=== PATIENT | female | born 1930 | race Caucasian/White ===

== ENCOUNTER 2018-04-18 18:00 | Inpatient (IN) | payer BC, MEDICARE | END 2018-04-23 11:20 | disposition home health service (06) ==

== ENCOUNTER 2018-05-05 08:07 | Emergency (ER) | payer MEDICARE, BC ==
[~2018-05-05] VITALS: Ht 152.4 cm; Wt 59.0 kg
[~2018-05-05 08:07] MED LIST: ALPR0.5T7 PO; ATOR40TA70 PO; HYDR25TA4 PO; INSU100I23 SC; INSU100I34 SC; ISOS30TA3 PO; METO-395 PO; RIVA15TA PO; TERA1CAP3 PO; TRAM50TA2 PO
[2018-05-05 08:22] LABS: BASOPHILS % (AUTO) 0 % (0-10); EOSINOPHILS # (AUTO) 0.1 10^3/uL (0.0-0.3); EOSINOPHILS % (AUTO) 2 % (0-10); HEMATOCRIT 43 % (35-52); HEMOGLOBIN 14.2 G/DL (11.5-16.0); LYMPHOCYTES # (AUTO) 1.2 X 10^3 (1.0-4.0); LYMPHOCYTES % (AUTO) 16 % (12-44); MEAN CORPUSCULAR HEMOGLOBIN 30 PG (25-34); MEAN CORPUSCULAR HGB CONC 33 G/DL (32-36); MEAN CORPUSCULAR VOLUME 88 FL (80-99); MEAN PLATELET VOLUME 8.7 FL (7.4-10.4); MONOCYTES # (AUTO) 0.6 X 10^3 (0.0-1.0); MONOCYTES % (AUTO) 9 % (0-12); NEUTROPHILS # (AUTO) 5.2 X 10^3 (1.8-7.8); NEUTROPHILS % (AUTO) 73 % (42-75); PLATELET COUNT 375 10^3/uL (130-400); RED CELL DISTRIBUTION WIDTH 13.7 % (10.0-14.5); WHITE BLOOD COUNT 7.1 10^3/uL (4.3-11.0)
--- NOTE | 2018-05-05 08:29 | NUR ---
SEE MED LIST
[2018-05-05 08:42] LABS: INR 1.4 (0.8-1.4); PROTHROMBIN TIME PATIENT 17.4 SEC (12.2-14.7)
--- NOTE | 2018-05-05 08:43 | Diagnostic Imaging Report ---
INDICATION: Heart flutter x1 day. TECHNIQUE: Single view chest 8:35 AM. CORRELATION STUDY: None FINDINGS: Heart size borderline. Vasculature within normal limits. Lung mo hyperinflated. No infiltrate. Calcified granuloma at the right upper lobe. Advanced degenerative changes of the shoulders. IMPRESSION: 1. Negative for acute abnormality of the chest. Dictated by: Dictated on workstation # [id number]
[2018-05-05 08:50] LABS: ALANINE AMINOTRANSFERASE 17 U/L (0-55); ALBUMIN 4.1 GM/DL (3.2-4.5); ALKALINE PHOSPHATASE 69 U/L (40-136); BILIRUBIN,TOTAL 0.8 MG/DL (0.1-1.0); BUN/CREATININE RATIO 20; CALCIUM 9.8 MG/DL (8.5-10.1); CARBON DIOXIDE 26 MMOL/L (21-32); CHLORIDE 102 MMOL/L (98-107); CREATININE SERUM 0.85 MG/DL (0.60-1.30); GFR ESTIMATED > 60; GLUCOSE 127 MG/DL (70-105); LIPASE 9 U/L (8-78); MAGNESIUM 2.8 MG/DL (1.8-2.4); POTASSIUM 3.6 MMOL/L (3.6-5.0); SODIUM 140 MMOL/L (135-145); TOTAL PROTEIN 7.2 GM/DL (6.4-8.2)
[2018-05-05 08:57] LABS: MYOGLOBIN SERUM 59.5 NG/ML (10.0-92.0)
--- NOTE | 2018-05-05 09:02 | ED Chest Pain ---
General Chief Complaint: Chest Pain Stated Complaint: CARDIAC ISSUES Nursing Triage Note: PT PRESENTS TO ED VIA [facility] FOR CP STARTING YESTERDAY BUT WORSE THIS AM. EMS REPORTS THEY GAVE PT 324 MG ASA AND 2 NITRO IN ROUTE. PT REPORTS PAIN IS VERY MINIMAL AFTER SECOND NITRO. PT DENIES SOA OR WEAKNESS/FAINTNESS Nursing Sepsis Screen: No Definite Risk Source: patient Exam Limitations: no limitations History of Present Illness Date Seen by Provider: May 05, 2018 Time Seen by Provider: 08:13 Initial Comments Here with report of left and/or central anterior chest pain that she is having a hard time describing but does state that he goes to her left shoulder. Onset yesterday intermittently and then worse today. Noted that it went to the shoulder today. She did summon EMS because of this and they gave 324 mg of aspirin as well as 2 nitroglycerin tablets in route. This did resolve her pain. Does have history of stroke recently and is on Xarelto for blood thinner agents. Stroke occurred on April 14 of this year and she was discharged from our rehabilitation unit on April 23. Has been doing okay. The stroke affected the left side and that is better. Denies nausea, vomiting, diarrhea, breathing problems, sweating or worse weakness. Timing/Duration: 24 hours, getting worse, intermittent, resolved prior to arrival Severity/Quality: mild, moderate, dull Location: central Radiation: shoulders (left) Activities at Onset: none Prior CP/Workup: cardiac cath, echocardiography Modifying Factors: improves with nitroglycerin, improves with rest ASA po PROGRESSIVE ASSEMBLER AND FITTER: No NTG SL PROGRESSIVE ASSEMBLER AND FITTER: No Associated Symptoms: No abdominal pain, No back pain, No diaphoresis, No nausea /vomiting, No shortness of breath, No weakness Allergies and Home Medications Allergies Coded Allergies: Penicillins (Unverified Allergy, Unknown, 04/19/18) Sulfa (Sulfonamide Antibiotics) (Unverified Allergy, Unknown, 04/19/18) amlodipine (Unverified Allergy, Unknown, 04/19/18) azithromycin (Unverified Allergy, Unknown, 04/19/18) diclofenac (Unverified Allergy, Unknown, 04/19/18) diltiazem (Unverified Allergy, Unknown, 04/19/18) esomeprazole (Unverified Allergy, Unknown, 04/19/18) famotidine (Unverified Allergy, Unknown, 04/19/18) fluocinonide (Unverified Allergy, Unknown, 04/19/18) glyburide (Unverified Allergy, Unknown, 04/19/18) losartan (Unverified Allergy, Unknown, 04/19/18) meloxicam (Unverified Allergy, Unknown, 04/19/18) metformin (Unverified Allergy, Unknown, 04/19/18) misoprostol (Unverified Allergy, Unknown, 04/19/18) naproxen (Unverified Allergy, Unknown, 04/19/18) pioglitazone (Unverified Allergy, Unknown, 04/19/18) pirbuterol (Unverified Allergy, Unknown, 04/19/18) rosiglitazone (Unverified Allergy, Unknown, 04/19/18) Uncoded Allergies: multivitamin (Allergy, Unknown, 04/19/18) Home Medications Alprazolam 0.5 Mg Tablet, 0.5 MG PO HS PRN for SLEEP Prescribed by: OSORIO DAWSON on 04/23/18901 Atorvastatin Calcium 40 Mg Tablet, 40 MG PO HS, (Reported) Hydrochlorothiazide 25 Mg Tablet, 25 MG PO DAILY, (Reported) Insulin Glargine,Hum.rec.anlog 100 Unit/1 Ml Insuln.pen, 20 UNITS SC HS, ( Reported) Insulin Lispro 100 Unit/1 Ml Insuln.pen, 5 UNITS SC TIDAC, (Reported) Isosorbide Mononitrate 30 Mg Tab.er.24h, 30 MG PO DAILY, (Reported) Rivaroxaban 15 Mg Tablet, 15 MG PO DAILY@1700 Prescribed by: OSORIO DAWSON on 04/23/18901 Tramadol HCl 50 Mg Tablet, 50 MG PO Q8H PRN for PAIN-MODERATE Prescribed by: OSORIO DAWSON on 04/23/18 09 Patient Home Medication List Home Medication List Reviewed: Yes Review of Systems Review of Systems Constitutional: see HPI; No chills, No fever EENTM: No Symptoms Reported Respiratory: Denies Shortness of Air, Denies Wheezing Cardiovascular: Chest Pain; Denies Edema; Palpitations Gastrointestinal: Denies Nausea, Denies Vomiting Genitourinary: No Symptoms Reported Musculoskeletal: see HPI, joint pain, muscle pain Skin: no symptoms reported Psychiatric/Neurological: No Symptoms Reported All Other Systems Reviewed Negative Unless Noted: Yes Past Xghfcuu-Qldsoa-Axmyga Hx Past Med/Social Hx: Reviewed Nursing Past Med/Soc Hx Patient Social History Alcohol Use: Denies Use Recreational Drug Use: No Smoking Status: Never a Smoker Recent Foreign Travel: No Contact w/Someone Who Travel: No Recent Infectious Disease Expo: No Recent Hopitalizations: Yes Physical Abuse: No Sexual Abuse: No Mistreated: No Fear: No Immunizations Up To Date Date of Pneumonia Vaccine: Apr 18, 2017 Date of Influenza Vaccine: Dec 24, 2017 Seasonal Allergies Seasonal Allergies: No Past Medical History Surgeries: Yes (D & C) Gallbladder, Tubal Ligation Respiratory: No Currently Using CPAP: No Currently Using BIPAP: No Cardiac: Yes (bradycardia, paroxysmal a-fib) Atrial Fibrillation, High Cholesterol, Hypertension Neurological: Yes Stroke Female Reproductive Disorders: Denies Sexually Transmitted Disease: No HIV/AIDS: No Genitourinary: No Gastrointestinal: No Musculoskeletal: Yes Arthritis Endocrine: Yes (dyslipidemia) Diabetes, Insulin dep HEENT: Yes Hearing Impairment: Hard of Hearing Cancer: No Psychosocial: No Integumentary: Yes (pemphigoid) Blood Disorders: No Adverse Reaction/Blood Tranf: No Family Medical History Reviewed Nursing Family Hx Cardiovascular disease G8 BROTHER Diabetes mellitus SON Physical Exam Vital Signs Vital Signs - First Documented 05/05/18 08:13 Temp 96.3 Pulse 68 Resp 18 B/P (MAP) 151/93 (112) Pulse Ox 99 O2 Delivery Room Air Capillary Refill : Less Than 3 Seconds Height, Weight, BMI Height: 5'0.00" Weight: 130lbs. 4.8oz. 58.696015ca; 24.3 BMI Method:Stated General Appearance: No Apparent Distress, WD/WN HEENT: PERRL/EOMI, Pharynx Normal Neck: Non Tender, Supple Respiratory: Lungs Clear, Normal Breath Sounds Cardiovascular: Regular Rate, Rhythm, No Murmur Gastrointestinal: Non Tender, Soft Extremity: Normal Range of Motion, Non Tender Neurologic/Psychiatric: Alert, Oriented x3 Skin: Normal Color, Warm/Dry Progress/Results/Core Measures Results/Orders Lab Results Laboratory Tests Test 05/05/18 08:15 05/05/18 11:12 Range/Units White Blood Count 7.1 4.3-11.0 10^3/uL Red Blood Count 4.82 4.35-5.85 10^6/uL Hemoglobin 14.2 11.5-16.0 G/DL Hematocrit 43 35-52 % Mean Corpuscular Volume 88 80-99 FL Mean Corpuscular Hemoglobin 30 25-34 PG Mean Corpuscular Hemoglobin Concent 33 32-36 G/DL Red Cell Distribution Width 13.7 10.0-14.5 % Platelet Count 375 130-400 10^3/uL Mean Platelet Volume 8.7 7.4-10.4 FL Neutrophils (%) (Auto) 73 42-75 % Lymphocytes (%) (Auto) 16 12-44 % Monocytes (%) (Auto) 9 0-12 % Eosinophils (%) (Auto) 2 0-10 % Basophils (%) (Auto) 0 0-10 % Neutrophils # (Auto) 5.2 1.8-7.8 X 10^3 Lymphocytes # (Auto) 1.2 1.0-4.0 X 10^3 Monocytes # (Auto) 0.6 0.0-1.0 X 10^3 Eosinophils # (Auto) 0.1 0.0-0.3 10^3/uL Basophils # (Auto) 0.0 0.0-0.1 10^3/uL Prothrombin Time 17.4 H 12.2-14.7 SEC INR Comment 1.4 0.8-1.4 Activated Partial Thromboplast Time 45 H 24-35 SEC D-Dimer 0.43 0.00-0.49 UG/ML Sodium Level 140 135-145 MMOL/L Potassium Level 3.6 3.6-5.0 MMOL/L Chloride Level 102 98-107 MMOL/L Carbon Dioxide Level 26 21-32 MMOL/L Anion Gap 12 5-14 MMOL/L Blood Urea Nitrogen 17 7-18 MG/DL Creatinine 0.85 0.60-1.30 MG/DL Estimat Glomerular Filtration Rate > 60 BUN/Creatinine Ratio 20 Glucose Level 127 H 70-105 MG/DL Calcium Level 9.8 8.5-10.1 MG/DL Corrected Calcium 9.7 8.5-10.1 MG/DL Magnesium Level 2.8 H 1.8-2.4 MG/DL Total Bilirubin 0.8 0.1-1.0 MG/DL Aspartate Amino Transf (AST/SGOT) 22 5-34 U/L Alanine Aminotransferase (ALT/SGPT) 17 0-55 U/L Alkaline Phosphatase 69 40-136 U/L Myoglobin 59.5 58.8 10.0-92.0 NG/ML Troponin I < 0.028 < 0.028 <0.028 NG/ML B-Type Natriuretic Peptide 325.3 H <100.0 PG/ML Total Protein 7.2 6.4-8.2 GM/DL Albumin 4.1 3.2-4.5 GM/DL Lipase 9 8-78 U/L My Orders Orders - KAYODE FRANKEL MD Cbc With Automated Diff (05/05/18 08:17) Magnesium (05/05/18 08:17) Chest 1 View, Ap/Pa Only (05/05/18 08:17) Ekg Tracing (05/05/18 08:17) Cardiac Profile 1 (05/05/18 08:17) Comprehensive Metabolic Panel (05/05/18 08:17) Myoglobin Serum (05/05/18 08:17) Protime With Inr (05/05/18 08:17) Partial Thromboplastin Time (05/05/18 08:17) O2 (05/05/18 08:17) Monitor-Rhythm Ecg Trace Only (05/05/18 08:17) Lipid Panel (05/06/18 06:00) Saline Lock/Iv-Start (05/05/18 08:17) Lipase (05/05/18 08:17) BNP (05/05/18 08:17) Fibrin Degradation Products (05/05/18 08:17) Troponin I (05/05/18 11:06) Myoglobin Serum (05/05/18 11:06) Ekg Tracing (05/05/18 11:06) Vital Signs/I&O 05/05/18 05/05/18 08:13 08:13 Temp 96.3 Pulse 68 Resp 18 B/P (MAP) 151/93 (112) Pulse Ox 99 O2 Delivery Room Air Blood Pressure Mean: 112 Progress Progress Note : Progress Note Seen and evaluated. IV by EMS. Labs, EKG and chest x-ray ordered. Aspirin and nitroglycerin tablets had been given by EMS and patient is currently pain- free. We will evaluate for cardiac etiology. Patient comfortable and in no complaint currently. Monitor patient. 1100: Patient remains pain free without any significant findings throughout the stay. She does have history of atrial flutter and she is on Xarelto so is protected. She does not show any signs of sustained atrial fibrillation or flutter while in the emergency department. We will recheck labs and EKG here and she elected go home if everything remains okay. 1145: Repeat EKG is negative for changes. Repeat labs do not show any elevation of troponin or other concerns. Remains without atrial fibrillation/ flutter. I do suspect she may have had an episode last night by her description but it does not seem to be sustained. At this point, safe to go home with follow-up and return precautions. All of this was discussed with patient and family who agree with plan and verbalize understanding instructions. I did recommend follow-up with cardiology this week. They verbalized intent to comply. Initial ECG Impression Date: May 05, 2018 Initial ECG Impression Time: 08:13 Initial ECG Rate: 61 Initial ECG Rhythm: Normal Sinus (chest x-ray and) Comment Sinus rhythm with normal axis. No evidence of ST elevation TN. PACs with some artifact. Overall similar in morphology to previous of 04/23/18. Interpreted by me. EKG : EKG Time: 11:15 Rate: 64 Comment Sinus rhythm with normal axis. No evidence of ST elevation TN. Morphology similar to EKG done earlier this morning and to previous EKG. Interpreted by me. Diagnostic Imaging Diagonstic Imaging: Xray Plain Films/CT/US/NM/MRI: chest Comments [facility] [place], [place] NAME: CHARLES DAVIES [facility] REC#: [id number] PT STATUS: REG ER : 1930 PHYSICIAN: KAYODE FRANKEL MD ADMIT DATE: 05/05/18/ER Draft Date of Exam:05/05/18 CHEST 1 VIEW, AP/PA ONLY INDICATION: Heart flutter x1 day. TECHNIQUE: Single view chest 8:35 AM. CORRELATION STUDY: None FINDINGS: Heart size borderline. Vasculature within normal limits. Lung mo hyperinflated. No infiltrate. Calcified granuloma at the right upper lobe. Advanced degenerative changes of the shoulders. IMPRESSION: 1. Negative for acute abnormality of the chest. Dictated on workstation # [id number] Dict: 05/05/18839 Trans: 05/05/[address] [facility] [id number] Interpreted by: TIFFANIE MUNSON DO Electronically signed by: Departure Impression Primary Impression: Chest pain Qualified Codes: R07.9 - Chest pain, unspecified Additional Impression: Atrial fibrillation Qualified Codes: I48.0 - Paroxysmal atrial fibrillation Disposition: 01 HOME, SELF-CARE Condition: Improved Departure-Patient Inst. Decision time for Depature: 11:50 Referrals: Kelton CROSS MD [facility],ANA ROSA SALCEDO (PCP/Family) Primary Care Physician Patient Instructions: Chest Pain (DC), Atrial Flutter (DC) Add. Discharge Instructions: All discharge instructions reviewed with patient and/or family. Voiced understanding. Continue home medications as previously prescribed. Follow-up with your Dr. this week for recheck and further evaluation. You should call and make appointment with Dr. Cross within one week for further evaluation. Return for worsening, fever, vomiting, weakness, breathing problems or other concerns as needed. Copy Copies To 1: Kelton CROSS MD, TIMOTHY D MD May 05, 2018 09:02
[2018-05-05 11:40] LABS: MYOGLOBIN SERUM 58.8 NG/ML (10.0-92.0)
[2018-05-05 11:58] VITALS: BP 162/70
== END 2018-05-05 11:58 | disposition home or self-care (01) ==
LOC: EDUNIT# 08:07 → ER 08:08
DX: R07.89 Other chest pain (principal); I48.91 Unspecified atrial fibrillation; E78.00 Pure hypercholesterolemia, unspecified; I10 Essential (primary) hypertension; E11.9 Type 2 diabetes mellitus without complications; Z82.49 Family history of ischemic heart disease and other diseases of the circulatory system; Z86.73 Personal history of transient ischemic attack (TIA), and cerebral infarction without residual deficits; Z79.01 Long term (current) use of anticoagulants; Z88.0 Allergy status to penicillin; Z88.2 Allergy status to sulfonamides; Z88.8 Allergy status to other drugs, medicaments and biological substances; Z88.1 Allergy status to other antibiotic agents; Z79.4 Long term (current) use of insulin; Z98.51 Tubal ligation status
CPT/HCPCS: 36415; 71045; 80053; 83690; 83735; 83874; 83880; 84484; 85025; 85379; 85610; 85730; 93005; 93041

== ENCOUNTER 2018-07-16 07:08 | Emergency (ER) | payer MEDICARE, BC ==
[~2018-07-16] VITALS: Ht 152.4 cm; Wt 57.2 kg
[~2018-07-16 07:08] MED LIST changes: -RIVA15TA PO; +RIVA15TA2 PO
[2018-07-16] MEDS ORDERED: NS IV 1000 ML 1,000 ML ONE (07:28)
--- NOTE | 2018-07-16 07:37 | ED Cardiac General ---
History of Present Illness General Stated Complaint: CHEST PAIN Source: patient Exam Limitations: no limitations History of Present Illness Date Seen by Provider: Jul 16, 2018 Time Seen by Provider: 07:32 Initial Comments Patient is a 88-year-old female with history of paroxysmal atrial fibrillation who presents with acute onset palpitations associated with chest pain starting approximately 2 and half hours prior to ED arrival. Patient states symptoms awoke her from sleep. Palpitations are described as fast, pounding in a regular similar to patient's previous A. fib episodes. Patient also reports chest pain all over which was nonradiating. Reports sweats, but denies shortness of breath nausea vomiting. Additional associated symptoms include generalized weakness and lightheadedness. On EMS arrival, the patient was noted be in A. fib with RVR with heart rate in the 130s with chest pain. 15 mg of Cardizem was given with improved rate control. Patient noted be hypotensive ED arrival, systolic blood pressure in the 80s. Chest pain is improved. Initial EKG shows A. fib, heart rate of [address]-T wave changes. Patient reports recently discontinue metoprolol. Timing/Duration: 1-3 hours Severity: moderate Location: central Activities at Onset: activity Prior CP/Workup: other (unknown) Associated Systoms: Shortness of Air Allergies and Home Medications Allergies Coded Allergies: Penicillins (Unverified Allergy, Unknown, rash, 07/16/18) Sulfa (Sulfonamide Antibiotics) (Unverified Allergy, Unknown, rash, ) amlodipine (Unverified Allergy, Unknown, feet and leg swelling, 07/16/18) azithromycin (Unverified Allergy, Unknown, diarrhea, 07/16/18) diclofenac (Unverified Allergy, Unknown, colon cramp, 07/16/18) diltiazem (Unverified Allergy, Unknown, headache, jaw ache, swollen gums, 07/16/18) esomeprazole (Unverified Allergy, Unknown, gas, 07/16/18) famotidine (Unverified Allergy, Unknown, 04/19/18) fluocinonide (Unverified Allergy, Unknown, sore mouth, 07/16/18) glyburide (Unverified Allergy, Unknown, cough, hoarseness, hair loss, 07/16) lisinopril (Verified Allergy, Unknown, feet cramp, 07/16/18) losartan (Unverified Allergy, Unknown, cough, 07/16/18) meloxicam (Unverified Allergy, Unknown, bloody stool, 07/16/18) metaxalone (Verified Allergy, Unknown, nervousness, 07/16/18) metformin (Unverified Allergy, Unknown, diarrhea, 07/16/18) misoprostol (Unverified Allergy, Unknown, colon cramp, 07/16/18) naproxen (Unverified Allergy, Unknown, 04/19/18) pioglitazone (Unverified Allergy, Unknown, stiffness, 07/16/18) pirbuterol (Unverified Allergy, Unknown, face itching, 07/16/18) rosiglitazone (Unverified Allergy, Unknown, stiffness, 07/16/18) Uncoded Allergies: multivitamin (Allergy, Unknown, rash, 07/16/18) Home Medications Alprazolam 0.5 Mg Tablet, 0.5 MG PO HS PRN for SLEEP Prescribed by: OSORIO DAWSON on 04/23/18901 Atorvastatin Calcium 40 Mg Tablet, 40 MG PO HS, (Reported) Hydrochlorothiazide 25 Mg Tablet, 25 MG PO DAILY, (Reported) Insulin Glargine,Hum.rec.anlog 100 Unit/1 Ml Insuln.pen, 20 UNITS SC HS, ( Reported) Insulin Lispro 100 Unit/1 Ml Insuln.pen, 5 UNITS SC TIDAC, (Reported) Isosorbide Mononitrate 30 Mg Tab.er.24h, 30 MG PO DAILY, (Reported) Rivaroxaban 15 Mg Tablet, 15 MG PO DAILY@1700 Prescribed by: OSORIO DAWSON on 04/23/18901 Tramadol HCl 50 Mg Tablet, 50 MG PO Q8H PRN for PAIN-MODERATE Prescribed by: OSORIO DAWSON on 04/23/18901 Patient Home Medication List Home Medication List Reviewed: Yes Review of Systems Review of Systems Constitutional: no symptoms reported, see HPI EENTM: No Symptoms Reported, See HPI Respiratory: No Symptoms Reported, See HPI Cardiovascular: No Symptoms Reported, See HPI Gastrointestinal: No Symptoms Reported, See HPI Genitourinary: No Symptoms Reported, See HPI Musculoskeletal: no symptoms reported, see HPI Skin: no symptoms reported Psychiatric/Neurological: Anxiety Past Drblmte-Imsxvr-Rhxlfo Hx Past Med/Social Hx: Reviewed Nursing Past Med/Soc Hx Patient Social History Recent Hopitalizations: Yes Immunizations Up To Date Date of Pneumonia Vaccine: Apr 18, 2017 Date of Influenza Vaccine: Dec 24, 2017 Seasonal Allergies Seasonal Allergies: No Past Medical History Surgeries: Yes (D & C) Gallbladder, Tubal Ligation Respiratory: No Currently Using CPAP: No Currently Using BIPAP: No Cardiac: Yes (bradycardia, paroxysmal a-fib) Atrial Fibrillation, High Cholesterol, Hypertension Neurological: Yes Stroke Female Reproductive Disorders: Denies Sexually Transmitted Disease: No HIV/AIDS: No Genitourinary: No Gastrointestinal: No Musculoskeletal: Yes Arthritis Endocrine: Yes (dyslipidemia) Diabetes, Insulin dep HEENT: Yes Hearing Impairment: Hard of Hearing Cancer: No Psychosocial: No Integumentary: Yes (pemphigoid) Blood Disorders: No Adverse Reaction/Blood Tranf: No Family Medical History Cardiovascular disease G8 BROTHER Diabetes mellitus SON Physical Exam Vital Signs Vital Signs - First Documented 07/16/18 07:10 Temp 96.4 Pulse 98 Resp 21 B/P (MAP) 105/45 (65) Pulse Ox 100 Capillary Refill : Height, Weight, BMI Height: 5'0.00" Weight: 130lbs. 4.8oz. 58.219880zs; 24.3 BMI Method:Stated General Appearance: No Apparent Distress, WD/WN HEENT: PERRL/EOMI, Normal ENT Inspection Neck: Normal Inspection Respiratory: Chest Non Tender, Lungs Clear Cardiovascular: Irregularly Irregular Gastrointestinal: Soft Neurologic/Psychiatric: Alert, Oriented x3, No Motor/Sensory Deficits, Normal Mood/Affect, clay puddler II-XII Norm as Tested Focused Exam Sepsis Stage: Ruled Out Progress/Results/Core Measures Results/Orders Lab Results Laboratory Tests Test 07/16/18 07:26 07/16/18 10:20 Range/Units White Blood Count 8.9 4.3-11.0 10^3/uL Red Blood Count 4.60 4.35-5.85 10^6/uL Hemoglobin 13.3 11.5-16.0 G/DL Hematocrit 42 35-52 % Mean Corpuscular Volume 90 80-99 FL Mean Corpuscular Hemoglobin 29 25-34 PG Mean Corpuscular Hemoglobin Concent 32 32-36 G/DL Red Cell Distribution Width 13.5 10.0-14.5 % Platelet Count 299 130-400 10^3/uL Mean Platelet Volume 9.0 7.4-10.4 FL Neutrophils (%) (Auto) 72 42-75 % Lymphocytes (%) (Auto) 15 12-44 % Monocytes (%) (Auto) 9 0-12 % Eosinophils (%) (Auto) 3 0-10 % Basophils (%) (Auto) 1 0-10 % Neutrophils # (Auto) 6.4 1.8-7.8 X 10^3 Lymphocytes # (Auto) 1.4 1.0-4.0 X 10^3 Monocytes # (Auto) 0.8 0.0-1.0 X 10^3 Eosinophils # (Auto) 0.2 0.0-0.3 10^3/uL Basophils # (Auto) 0.1 0.0-0.1 10^3/uL Prothrombin Time 14.7 12.2-14.7 SEC INR Comment 1.1 0.8-1.4 Sodium Level 139 135-145 MMOL/L Potassium Level 3.7 3.6-5.0 MMOL/L Chloride Level 97 L 98-107 MMOL/L Carbon Dioxide Level 14 L 21-32 MMOL/L Anion Gap 28 H 5-14 MMOL/L Blood Urea Nitrogen 17 7-18 MG/DL Creatinine 0.79 0.60-1.30 MG/DL Estimat Glomerular Filtration Rate > 60 BUN/Creatinine Ratio 22 Glucose Level 143 H 70-105 MG/DL Calcium Level 9.6 8.5-10.1 MG/DL Corrected Calcium 9.6 8.5-10.1 MG/DL Total Bilirubin 0.7 0.1-1.0 MG/DL Aspartate Amino Transf (AST/SGOT) 29 5-34 U/L Alanine Aminotransferase (ALT/SGPT) 36 0-55 U/L Alkaline Phosphatase 139 H 40-136 U/L Troponin T 16 H <=10 NG/L Total Protein 7.0 6.4-8.2 GM/DL Albumin 4.0 3.2-4.5 GM/DL My Orders Orders - BARI HOGAN DO Cbc With Automated Diff (07/16/18 07:23) Comprehensive Metabolic Panel (07/16/18 07:23) Troponin T (07/16/18 07:23) Chest 1 View Ap/Pa Only (07/16/18 07:23) Ekg Tracing (07/16/18 07:23) Protime With Inr (07/16/18 07:24) Ns Iv 1000 Ml (Sodium Chloride 0.9%) (07/16/18 07:45) Ns Iv 1000 Ml (Sodium Chloride 0.9%) (07/16/18 07:28) Ekg Tracing (07/16/18 08:44) Troponin T (07/16/18 09:02) Vital Signs/I&O 07/16/18 07:10 Temp 96.4 Pulse 98 Resp 21 B/P (MAP) 105/45 (65) Pulse Ox 100 Departure Communication (Admissions) A. fib with RVR, Cardizem given prior to ER arrival. Chest pain and heart rate improved, patient remains hypotensive with systolic blood pressure 70s. Fluid bolus given. Patient spontaneously converted to normal sinus rhythm/sinus bradycardia. Blood pressure improved fluid bolus. Patient heart rate in 40s/ 50s. Case discussed in detail with Dr. Carlos. Recommendations are to hold beta brigida to send patient home and to have patient follow-up in the office for evaluation of potential pacemaker placement. Case discussed with patient's daughter's agreement with plan. Patient ambulates with steady gait prior to departure. Impression Primary Impression: Atrial fibrillation Additional Impressions: Bradycardia Chest pain Disposition: 01 HOME, SELF-CARE Condition: Improved Admissions Decision to Admit/Date: Jul 16, 2018 Time/Decision to Admit Time: 07:38 Departure-Patient Inst. Referrals: SELF,ANA ROSA SALCEDO (PCP) Primary Care Physician MARCUS CANO APRN (Family) Primary Care Physician Patient Instructions: Atrial Fibrillation (DC), Chest Pain (DC) Add. Discharge Instructions: You were evaluated in the emergency department for chest pain and fast heart rate. Initial EKG showed atrial fibrillation which converted to a slow normal heart rhythm. 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 Continue all other medications. If you develop new or worsening symptoms, return to the emergency department. BARI HOGAN DO Jul 16, 2018 07:37
[2018-07-16] MEDS ORDERED: NS IV 1000 ML 1,000 ML IV SCH (07:45)
--- NOTE | 2018-07-16 07:54 | Diagnostic Imaging Report ---
CHEST 1 VIEW AP/PA ONLY Indication: Chest pain Comparison: 05/25/2018 Findings: No focal airspace disease in the visualized lungs. Please note that the posterior lower lobes are poorly evaluated by portable radiography. No pleural effusion or pneumothorax. Normal cardiomediastinal silhouette. Impression: No acute cardiopulmonary process by portable radiography. Dictated by: Dictated on workstation # [id number]
[2018-07-16 07:56] LABS: BASOPHILS % (AUTO) 1 % (0-10); EOSINOPHILS % (AUTO) 3 % (0-10); HEMATOCRIT 42 % (35-52); HEMOGLOBIN 13.3 G/DL (11.5-16.0); LYMPHOCYTES # (AUTO) 1.4 X 10^3 (1.0-4.0); LYMPHOCYTES % (AUTO) 15 % (12-44); MEAN CORPUSCULAR HEMOGLOBIN 29 PG (25-34); MEAN CORPUSCULAR HGB CONC 32 G/DL (32-36); MEAN CORPUSCULAR VOLUME 90 FL (80-99); MONOCYTES # (AUTO) 0.8 X 10^3 (0.0-1.0); MONOCYTES % (AUTO) 9 % (0-12); NEUTROPHILS # (AUTO) 6.4 X 10^3 (1.8-7.8); NEUTROPHILS % (AUTO) 72 % (42-75); PLATELET COUNT 299 10^3/uL (130-400); RED CELL DISTRIBUTION WIDTH 13.5 % (10.0-14.5); WHITE BLOOD COUNT 8.9 10^3/uL (4.3-11.0)
[2018-07-16 07:57] LABS: BASOPHILS # (AUTO) 0.1 10^3/uL (0.0-0.1); EOSINOPHILS # (AUTO) 0.2 10^3/uL (0.0-0.3); INR 1.1 (0.8-1.4); PROTHROMBIN TIME PATIENT 14.7 SEC (12.2-14.7)
[2018-07-16 07:58] LABS: BUN/CREATININE RATIO 22; CALCIUM 9.6 MG/DL (8.5-10.1); CARBON DIOXIDE 14 MMOL/L (21-32); CHLORIDE 97 MMOL/L (98-107); CREATININE SERUM 0.79 MG/DL (0.60-1.30); GFR ESTIMATED > 60; GLUCOSE 143 MG/DL (70-105); POTASSIUM 3.7 MMOL/L (3.6-5.0); SODIUM 139 MMOL/L (135-145)
[2018-07-16 07:59] LABS: ALANINE AMINOTRANSFERASE 36 U/L (0-55); ALKALINE PHOSPHATASE 139 U/L (40-136); BILIRUBIN,TOTAL 0.7 MG/DL (0.1-1.0)
[2018-07-16] MEDS ORDERED: AMLO5TAB9 (08:09)
[2018-07-16] MEDS ORDERED: NAPR220T66 (08:09)
--- NOTE | 2018-07-16 12:00 | NUR ---
Notified by [facility] transfer center that it will be a wait for a bed number. Unable to give specified time frame. Notified Dr Hollins
[2018-07-16 13:26] VITALS: BP 120/46
--- NOTE | 2018-07-16 13:50 | NUR ---
Patient transferred at this time to [facility] via [facility]
== END 2018-07-16 13:52 | disposition short-term general hospital (02) ==
LOC: EDUNIT# 07:08 → ER FS 07:09
DX: I48.91 Unspecified atrial fibrillation (principal); R00.1 Bradycardia, unspecified; R07.9 Chest pain, unspecified; E78.00 Pure hypercholesterolemia, unspecified; I10 Essential (primary) hypertension; E11.9 Type 2 diabetes mellitus without complications; E78.2 Mixed hyperlipidemia; Z82.49 Family history of ischemic heart disease and other diseases of the circulatory system; Z86.73 Personal history of transient ischemic attack (TIA), and cerebral infarction without residual deficits; Z88.0 Allergy status to penicillin; Z88.2 Allergy status to sulfonamides; Z88.1 Allergy status to other antibiotic agents; Z88.8 Allergy status to other drugs, medicaments and biological substances; Z79.4 Long term (current) use of insulin; Z79.01 Long term (current) use of anticoagulants; Z98.51 Tubal ligation status; Z98.890 Other specified postprocedural states
CPT/HCPCS: 36415; 71045; 80053; 84484; 85025; 85610; 93005

== ENCOUNTER → 2018-08-15 | Outpatient (CLI) | payer MEDICARE, BC ==
[~2018-08-15] MED LIST changes: +AMLO5TAB9; +NAPR220T66
== END ==
LOC: CARD 09:07
PROVIDERS: ATTEND Internal Medicine Interventional Cardiology
DX: I63.9 Cerebral infarction, unspecified (principal); I48.0 Paroxysmal atrial fibrillation; E11.9 Type 2 diabetes mellitus without complications; I10 Essential (primary) hypertension; I45.89 Other specified conduction disorders
CPT/HCPCS: 93306

== ENCOUNTER 2018-10-10 07:58 | Day surgery (SDC) | payer MEDICARE, BC ==
[~2018-10-10] VITALS: Ht 152.4 cm; Wt 54.4 kg
[2018-10-10] VITALS (10 sets, daily range): BP systolic 102–139; BP diastolic 55–71
[~2018-10-10 07:58] MED LIST changes: -AMLO5TAB9; +AMLO5TAB9 PO; -NAPR220T66; +NAPR220T66 PO
[2018-10-10] MEDS ORDERED: NS IV 1000 ML 1,000 ML IV SCH ×2 (08:08→11:46)
[2018-10-10] MEDS ORDERED: HEParin (CATH LAB) 1,000 ML IV ONE (08:17)
[2018-10-10] MEDS ORDERED: LIDOCAINE 1% INJ 20 ML 20 ML VIAL ONE ×2 (08:17)
[2018-10-10] MEDS ORDERED: NS IV 1000 ML 1,000 ML ONE (08:17)
[2018-10-10 08:32] LABS: HEMOGLOBIN 12.9 G/DL (11.5-16.0); MEAN PLATELET VOLUME 9.1 FL (7.4-10.4); RED CELL DISTRIBUTION WIDTH 13.3 % (10.0-14.5); WHITE BLOOD COUNT 8.4 10^3/uL (4.3-11.0)
--- OUTSIDE RECORDS SUMMARY | 2018-10-10 08:32 | XMS REPORT | Continuity of Care Document ---
Author Organization Unknown Address Unknown Allergies Active Description Code Type Severity Reaction Onset Reported/Identified Relationship to Patient Clinical Status Yes No Allergy Information Available [id number] Drug Allergy Unknown N/A 04/18/2018 Yes amlodipine [id number] Drug Allergy Unknown N/A 04/19/2018 Yes azithromycin [id number] Drug Allergy Unknown N/A 04/19/2018 Yes diclofenac [id number] Drug Allergy Unknown N/A 04/19/2018 Yes diltiazem [id number] Drug Allergy Unknown N/A 04/19/2018 Yes esomeprazole [id number] Drug Allergy Unknown N/A 04/19/2018 Yes famotidine [id number] Drug Allergy Unknown N/A 04/19/2018 Yes fluocinonide [id number] Drug Allergy Unknown N/A 04/19/2018 Yes glyburide [id number] Drug Allergy Unknown N/A 04/19/2018 Yes losartan [id number] Drug Allergy Unknown N/A 04/19/2018 Yes meloxicam [id number] Drug Allergy Unknown N/A 04/19/2018 Yes metformin [id number] Drug Allergy Unknown N/A 04/19/2018 Yes misoprostol [id number] Drug Allergy Unknown N/A 04/19/2018 Yes multivitamin multivitamin Unknown N/A 04/19/2018 Yes naproxen [id number] Drug Allergy Unknown N/A 04/19/2018 Yes Penicillins [id number] Drug Allergy Unknown N/A 04/19/2018 Yes pioglitazone [id number] Drug Allergy Unknown N/A 04/19/2018 Yes pirbuterol [id number] Drug Allergy Unknown N/A 04/19/2018 Yes rosiglitazone [id number] Drug Allergy Unknown N/A 04/19/2018 Yes Sulfa (Sulfonamide Antibiotics) [id number] Drug Allergy Unknown N/A 04/19/2018 Yes amlodipine [id number] Drug Allergy Unknown feet and leg sw 07/16/2018 Yes azithromycin [id number] Drug Allergy Unknown diarrhea 07/16/2018 Yes diclofenac [id number] Drug Allergy Unknown colon cramp 07/16/2018 Yes diltiazem [id number] Drug Allergy Unknown headache, jaw a 07/16/2018 Yes esomeprazole [id number] Drug Allergy Unknown gas 07/16/2018 Yes fluocinonide [id number] Drug Allergy Unknown sore mouth 07/16/2018 Yes glyburide [id number] Drug Allergy Unknown cough, hoarsene 07/16/2018 Yes lisinopril [id number] Drug Allergy Unknown feet cramp 07/16/2018 Yes losartan [id number] Drug Allergy Unknown cough 07/16/2018 Yes meloxicam [id number] Drug Allergy Unknown bloody stool 07/16/2018 Yes metaxalone [id number] Drug Allergy Unknown nervousness 07/16/2018 Yes metformin [id number] Drug Allergy Unknown diarrhea 07/16/2018 Yes misoprostol [id number] Drug Allergy Unknown colon cramp 07/16/2018 Yes multivitamin multivitamin Unknown rash 07/16/2018 Yes Penicillins [id number] Drug Allergy Unknown rash 07/16/2018 Yes pioglitazone [id number] Drug Allergy Unknown stiffness 07/16/2018 Yes pirbuterol [id number] Drug Allergy Unknown face itching 07/16/2018 Yes rosiglitazone [id number] Drug Allergy Unknown stiffness 07/16/2018 Yes Sulfa (Sulfonamide Antibiotics) [id number] Drug Allergy Unknown rash 07/16/2018 Medications There is no data. Problems Date Dx Coded Attending Type Code Diagnosis Diagnosed By 04/23/2018 OSORIO DAWSON DO Ot E11.69 TYPE 2 DIABETES MELLITUS WITH OTHER SPEC 04/23/2018 OSORIO DAWSON DO Ot E78.2 MIXED HYPERLIPIDEMIA 04/23/2018 OSORIO DAWSON DO Ot I10 ESSENTIAL (PRIMARY) HYPERTENSION 04/23/2018 OSORIO DAWSON DO Ot I25.10 ATHSCL HEART DISEASE OF [place] CORONARY 04/23/2018 OSORIO DAWSON DO Ot I25.2 OLD MYOCARDIAL INFARCTION 04/23/2018 OSORIO DAWSON DO Ot I48.0 PAROXYSMAL ATRIAL FIBRILLATION 04/23/2018 OSORIO DAWSON DO Ot I69.318 OTHER SYMPTOMS AND SIGNS W COGN FNCTNS F 04/23/2018 OSORIO DAWSON DO Ot I69.354 HEMIPLGA FOLLOWING CEREBRAL INFRC AFFECT 04/23/2018 OSORIO DAWSON DO Ot I69.391 DYSPHAGIA FOLLOWING CEREBRAL INFARCTION 04/23/2018 OSORIO DAWSON DO Ot 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 04/23/2018 PERRY DAWSON DOI Ot I69.398 OTHER SEQUELAE OF CEREBRAL INFARCTION 04/23/2018 EUNICE QUIROZ OSORIO Ot L12.9 PEMPHIGOID, UNSPECIFIED 04/23/2018 PERRY DAWSON DOI Ot R00.1 BRADYCARDIA, UNSPECIFIED 04/23/2018 DAWSON DO OSORIO Ot R13.10 DYSPHAGIA, UNSPECIFIED 04/23/2018 DAWSON DOPERRYI Ot R26.89 OTHER ABNORMALITIES OF GAIT AND MOBILITY 04/23/2018 OSORIO DAWSON DO Ot R41.0 DISORIENTATION, UNSPECIFIED 04/23/2018 OSORIO DAWSON DO Ot 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 04/23/2018 OSORIO DAWSON DO Ot 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 INSULIN 05/05/2018 KAYODE FRANKEL MD Ot E11.9 TYPE 2 DIABETES MELLITUS WITHOUT COMPLIC 05/05/2018 KAYODE FRANKEL MD Ot E78.00 PURE HYPERCHOLESTEROLEMIA, UNSPECIFIED 05/05/2018 KAYODE FRANKEL MD Ot I10 ESSENTIAL (PRIMARY) HYPERTENSION 05/05/2018 KAYODE FRANKEL MD Ot I48.91 UNSPECIFIED ATRIAL FIBRILLATION 05/05/2018 KAYODE FRANKEL MD Ot R07.89 OTHER CHEST PAIN 05/05/2018 KAYODE FRANKEL MD Ot Z79.01 RETIREMENT (CURRENT) USE OF ANTICOAGULANT 05/05/2018 KAYODE FRANKEL MD Ot Z79.4 RETIREMENT (CURRENT) USE OF INSULIN 05/05/2018 KAYODE FRANKEL MD Ot Z82.49 FAMILY HX OF ISCHEM HEART DIS AND OTH DI 05/05/2018 KAYODE FRANKEL MD Ot Z86.73 PRSNL HX OF TIA (TIA), AND CEREB INFRC W 05/05/2018 KAYODE FRANKEL MD Ot Z88.0 ALLERGY STATUS TO PENICILLIN 05/05/2018 KAYODE FRANKEL MD Ot Z88.1 ALLERGY STATUS TO OTHER ANTIBIOTIC AGENT 05/05/2018 KAYODE FRANKEL MD Ot Z88.2 ALLERGY STATUS TO SULFONAMIDES STATUS 05/05/2018 KAYODE FRANKEL MD, Ot Z88.8 ALLERGY STATUS TO OTH DRUG/MEDS/BIOL SUB 05/05/2018 KAYODE FRANKEL MD, Ot Z98.51 TUBAL LIGATION STATUS 05/07/2018 KAYODE FRANKEL MD Ot E11.9 TYPE 2 DIABETES MELLITUS WITHOUT COMPLIC 05/07/2018 KAYODE FRANKEL MD Ot E78.00 PURE HYPERCHOLESTEROLEMIA, UNSPECIFIED 05/07/2018 KAYODE FRANKEL MD Ot I10 ESSENTIAL (PRIMARY) HYPERTENSION 05/07/2018 KAYODE FRANKEL MD Ot I48.91 UNSPECIFIED ATRIAL FIBRILLATION 05/07/2018 KAYODE FRANKEL MD Ot R07.89 OTHER CHEST PAIN 05/07/2018 KAYODE FRANKEL MD Ot Z79.01 RETIREMENT (CURRENT) USE OF ANTICOAGULANT 05/07/2018 KAYODE FRANKEL MD Ot Z79.4 RETIREMENT (CURRENT) USE OF INSULIN 05/07/2018 KAYODE FRANKEL MD Ot Z82.49 FAMILY HX OF ISCHEM HEART DIS AND OTH DI 05/07/2018 KAYODE FRNAKEL MD, Ot Z86.73 PRSNL HX OF TIA (TIA), AND CEREB INFRC W 05/07/2018 KAYOED FRANKEL MD, Ot Z88.0 ALLERGY STATUS TO PENICILLIN 05/07/2018 KAYODE FRANKEL MD, Ot Z88.1 ALLERGY STATUS TO OTHER ANTIBIOTIC AGENT 05/07/2018 KAYODE FRANKEL MD Ot Z88.2 ALLERGY STATUS TO SULFONAMIDES STATUS 05/07/2018 KAYODE FRANKEL MD, Ot Z88.8 ALLERGY STATUS TO OTH DRUG/MEDS/BIOL SUB 05/07/2018 KAYODE FRANKEL MD Ot Z98.51 TUBAL LIGATION STATUS 07/16/2018 BARI HOGAN DO Ot E11.9 TYPE 2 DIABETES MELLITUS WITHOUT COMPLIC 07/16/2018 BARI HOGAN DO Ot E78.00 PURE HYPERCHOLESTEROLEMIA, UNSPECIFIED 07/16/2018 BARI HOGAN DO Ot E78.2 MIXED HYPERLIPIDEMIA 07/16/2018 EDISON QUIROZ BARI Ot I10 ESSENTIAL (PRIMARY) HYPERTENSION 07/16/2018 EDISON DO, BARI Ot I48.91 UNSPECIFIED ATRIAL FIBRILLATION 07/16/2018 BINGEN DO, BARI Ot R00.1 BRADYCARDIA, UNSPECIFIED 07/16/2018 BINGEN DO, BARI Ot R07.9 CHEST PAIN, UNSPECIFIED 07/16/2018 BINGEN DO, BARI Ot Z79.01 RETIREMENT (CURRENT) USE OF ANTICOAGULANT 07/16/2018 BINGEN DO, BARI Ot 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 INSULIN 07/16/2018 BINGEN DO, BARI Ot Z82.49 FAMILY HX OF ISCHEM HEART DIS AND OTH DI 07/16/2018 BINGEN DO, BARI Ot Z86.73 PRSNL HX OF TIA (TIA), AND CEREB INFRC W 07/16/2018 BINGEN DO, BARI Ot Z88.0 ALLERGY STATUS TO PENICILLIN 07/16/2018 BINGEN DO, BARI Ot Z88.1 ALLERGY STATUS TO OTHER ANTIBIOTIC AGENT 07/16/2018 BINGEN DO, BARI Ot Z88.2 ALLERGY STATUS TO SULFONAMIDES STATUS 07/16/2018 BINGEN DO, BARI Ot Z88.8 ALLERGY STATUS TO [facility] DRUG/MEDS/BIOL SUB 07/16/2018 BINGEN DO, BARI Ot Z98.51 TUBAL LIGATION STATUS 07/16/2018 BINGEN DO, BARI Ot Z98.890 OTHER SPECIFIED POSTPROCEDURAL STATES 07/18/2018 BINGEN DO, BARI Ot E11.9 TYPE 2 DIABETES MELLITUS WITHOUT COMPLIC 07/18/2018 BINGEN DO, BARI Ot E78.00 PURE HYPERCHOLESTEROLEMIA, UNSPECIFIED 07/18/2018 BINGEN DO, BARI Ot E78.2 MIXED HYPERLIPIDEMIA 07/18/2018 BINGEN DO, BARI Ot I10 ESSENTIAL (PRIMARY) HYPERTENSION 07/18/2018 BINGEN DO, BARI Ot I48.91 UNSPECIFIED ATRIAL FIBRILLATION 07/18/2018 BINGEN DO, BARI Ot R00.1 BRADYCARDIA, UNSPECIFIED 07/18/2018 BINGEN DO, BARI Ot R07.9 CHEST PAIN, UNSPECIFIED 07/18/2018 BINGEN DO, BARI Ot Z79.01 RETIREMENT (CURRENT) USE OF ANTICOAGULANT 07/18/2018 BINGEN DO, BARI Ot Z79.4 RETIREMENT (CURRENT) USE OF INSULIN 07/18/2018 BINGEN DO, BARI Ot Z82.49 FAMILY HX OF ISCHEM HEART DIS AND OTH DI 07/18/2018 BINGEN DO, BARI Ot Z86.73 PRSNL HX OF TIA (TIA), AND CEREB INFRC W 07/18/2018 BINGEN DO, BARI Ot Z88.0 ALLERGY STATUS TO PENICILLIN 07/18/2018 BINGEN DO, BARI Ot Z88.1 ALLERGY STATUS TO OTHER ANTIBIOTIC AGENT 07/18/2018 BINGEN DO, BARI Ot Z88.2 ALLERGY STATUS TO SULFONAMIDES STATUS 07/18/2018 BINGEN DO, BARI Ot Z88.8 ALLERGY STATUS TO OTH DRUG/MEDS/BIOL SUB 07/18/2018 BINGEN DO, BARI Ot Z98.51 TUBAL LIGATION STATUS 07/18/2018 BINGEN DO, BARI Ot Z98.890 OTHER SPECIFIED POSTPROCEDURAL STATES 07/25/2018 BINGEN DO, BARI Ot E11.9 TYPE 2 DIABETES MELLITUS WITHOUT COMPLIC 07/25/2018 BINGEN DO, BARI Ot E78.00 PURE HYPERCHOLESTEROLEMIA, UNSPECIFIED 07/25/2018 BINGEN DO, BARI Ot E78.2 MIXED HYPERLIPIDEMIA 07/25/2018 BINGEN DO, BARI Ot I10 ESSENTIAL (PRIMARY) HYPERTENSION 07/25/2018 BINGEN DO, BARI Ot I48.91 UNSPECIFIED ATRIAL FIBRILLATION 07/25/2018 BINGEN DO, BARI Ot R00.1 BRADYCARDIA, UNSPECIFIED 07/25/2018 BINGEN DO, BARI Ot R07.9 CHEST PAIN, UNSPECIFIED 07/25/2018 BINGEN DO, BARI Ot Z79.01 RETIREMENT (CURRENT) USE OF ANTICOAGULANT 07/25/2018 BINGEN DO, BARI Ot 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 INSULIN 07/25/2018 BINGEN DO, BARI Ot Z82.49 FAMILY HX OF ISCHEM HEART DIS AND OTH DI 07/25/2018 [facility], BARI Ot Z86.73 PRSNL HX OF TIA (TIA), AND CEREB INFRC W 07/25/2018 BINGEN DO, BARI Ot Z88.0 ALLERGY STATUS TO PENICILLIN 07/25/2018 BINGEN DO, BARI Ot Z88.1 ALLERGY STATUS TO OTHER ANTIBIOTIC AGENT 07/25/2018 BINGEN DO, BARI Ot Z88.2 ALLERGY STATUS TO SULFONAMIDES STATUS 07/25/2018 BINGEN DO, BARI Ot Z88.8 ALLERGY STATUS TO OTH DRUG/MEDS/BIOL SUB 07/25/2018 BINGEN DO, BARI Ot Z98.51 TUBAL LIGATION STATUS 07/25/2018 BINGEN DO, BARI Ot Z98.890 OTHER SPECIFIED POSTPROCEDURAL STATES 08/20/2018 Kelton CROSS MD Ot E11.9 TYPE 2 DIABETES MELLITUS WITHOUT COMPLIC 08/20/2018 Kelton CROSS MD Ot I10 ESSENTIAL (PRIMARY) HYPERTENSION 08/20/2018 Kelton CROSS MD Ot I45.89 OTHER SPECIFIED CONDUCTION DISORDERS 08/20/2018 Kelton CROSS MD Ot I48.0 PAROXYSMAL ATRIAL FIBRILLATION 08/20/2018 Kelton CROSS MD Ot I63.9 CEREBRAL INFARCTION, UNSPECIFIED 09/06/2018 Kelton CROSS MD Ot E11.9 TYPE 2 DIABETES MELLITUS WITHOUT COMPLIC 09/06/2018 Kelton CROSS MD Ot I10 ESSENTIAL (PRIMARY) HYPERTENSION 09/06/2018 Kelton CROSS MD Ot I45.89 OTHER SPECIFIED CONDUCTION DISORDERS 09/06/2018 Kelton CROSS MD Ot I48.0 PAROXYSMAL ATRIAL FIBRILLATION 09/06/2018 Kelton CROSS MD Ot I63.9 CEREBRAL INFARCTION, UNSPECIFIED 09/19/2018 Kelton CROSS MD Ot I48.0 PAROXYSMAL ATRIAL FIBRILLATION 09/19/2018 Kelton CROSS MD Ot R00.2 PALPITATIONS 09/24/2018 Kelton CROSS MD Ot I48.0 PAROXYSMAL ATRIAL FIBRILLATION 09/24/2018 Kelton CROSS MD Ot R00.2 PALPITATIONS Procedures There is no data. Results Test Result Range Capillary blood glucose measurement by glucometer (mass/volume) - 04/18/18 18:52 Capillary blood glucose measurement by glucometer (mass/volume) 136 mg/dL 70-110 Capillary blood glucose measurement by glucometer (mass/volume) - 04/18/18 20:16 Capillary blood glucose measurement by glucometer (mass/volume) 223 mg/dL 70-110 Capillary blood glucose measurement by glucometer (mass/volume) - 04/19/18 06:21 Capillary blood glucose measurement by glucometer (mass/volume) 104 mg/dL 70-110 Capillary blood glucose measurement by glucometer (mass/volume) - 04/19/18 11:02 Capillary blood glucose measurement by glucometer (mass/volume) 95 mg/dL 70-110 Capillary blood glucose measurement by glucometer (mass/volume) - 04/19/18 15:44 Capillary blood glucose measurement by glucometer (mass/volume) 118 mg/dL 70-110 Capillary blood glucose measurement by glucometer (mass/volume) - 04/19/18 20:27 Capillary blood glucose measurement by glucometer (mass/volume) 148 mg/dL 70-110 Capillary blood glucose measurement by glucometer (mass/volume) - 04/20/18 06:00 Capillary blood glucose measurement by glucometer (mass/volume) 118 mg/dL 70-110 Automated blood complete blood count (hemogram) panel - 04/20/18 06:46 Blood leukocytes automated count (number/volume) 6.6 10*3/uL 4.3-11.0 Blood erythrocytes automated count (number/volume) 4.91 10*6/uL 4.35-5.85 Venous blood hemoglobin measurement (mass/volume) 14.0 g/dL 11.5-16.0 Blood hematocrit (volume fraction) 43 % 35-52 Automated erythrocyte mean corpuscular volume 88 [foz_us] 80-99 Automated erythrocyte mean corpuscular hemoglobin (mass per erythrocyte) 29 pg 25-34 Automated erythrocyte mean corpuscular hemoglobin concentration measurement (mass/volume) 32 g/dL 32-36 Automated erythrocyte distribution width ratio 13.6 % 10.0- 14.5 Automated blood platelet count (count/volume) 262 10*3/uL 130-400 Automated blood platelet mean volume measurement 9.1 [foz_us] 7.4-10.4 Comprehensive metabolic panel - 04/20/18 06:46 Serum or plasma sodium measurement (moles/volume) 137 mmol/L 135-145 Serum or plasma potassium measurement (moles/volume) 3.9 mmol/L 3.6-5.0 Serum or plasma chloride measurement (moles/volume) 103 mmol/L 98-107 Carbon dioxide 24 mmol/L 21-32 Serum or plasma anion gap determination (moles/volume) 10 mmol/L 5-14 Serum or plasma urea nitrogen measurement (mass/volume) 23 mg/dL 7-18 Serum or plasma creatinine measurement (mass/volume) 0.84 mg/dL 0.60-1.30 Serum or plasma urea nitrogen/creatinine mass ratio 27 NRG Serum or plasma creatinine measurement with calculation of estimated glomerular filtration rate > NRG Serum or plasma glucose measurement (mass/volume) 142 mg/dL 70-105 Serum or plasma calcium measurement (mass/volume) 9.3 mg/dL 8.5-10.1 Serum or plasma total bilirubin measurement (mass/volume) 0.8 mg/dL 0.1-1.0 Serum or plasma alkaline phosphatase measurement (enzymatic activity/volume) 53 U/L 40-136 Serum or plasma aspartate aminotransferase measurement (enzymatic activity/volume) 21 U/L 5-34 Serum or plasma alanine aminotransferase measurement (enzymatic activity/volume) 16 U/L 0-55 Serum or plasma protein measurement (mass/volume) 6.6 g/dL 6.4-8.2 Serum or plasma albumin measurement (mass/volume) 3.8 g/dL 3.2-4.5 CALCIUM CORRECTED 9.5 mg/dL 8.5-10.1 Capillary blood glucose measurement by glucometer (mass/volume) - 04/20/18 11:48 Capillary blood glucose measurement by glucometer (mass/volume) 177 mg/dL 70-110 Capillary blood glucose measurement by glucometer (mass/volume) - 04/20/18 16:00 Capillary blood glucose measurement by glucometer (mass/volume) 133 mg/dL 70-110 Capillary blood glucose measurement by glucometer (mass/volume) - 04/20/18 20:22 Capillary blood glucose measurement by glucometer (mass/volume) 127 mg/dL 70-110 Capillary blood glucose measurement by glucometer (mass/volume) - 04/21/18 05:21 Capillary blood glucose measurement by glucometer (mass/volume) 138 mg/dL 70-110 Capillary blood glucose measurement by glucometer (mass/volume) - 04/21/18 11:07 Capillary blood glucose measurement by glucometer (mass/volume) 151 mg/dL 70-110 Capillary blood glucose measurement by glucometer (mass/volume) - 04/21/18 16:08 Capillary blood glucose measurement by glucometer (mass/volume) 151 mg/dL 70-110 Capillary blood glucose measurement by glucometer (mass/volume) - 04/21/18 20:04 Capillary blood glucose measurement by glucometer (mass/volume) 156 mg/dL 70-110 Capillary blood glucose measurement by glucometer (mass/volume) - 04/22/18 05:18 Capillary blood glucose measurement by glucometer (mass/volume) 116 mg/dL 70-110 Capillary blood glucose measurement by glucometer (mass/volume) - 04/22/18 10:35 Capillary blood glucose measurement by glucometer (mass/volume) 208 mg/dL 70-110 Capillary blood glucose measurement by glucometer (mass/volume) - 04/22/18 15:59 Capillary blood glucose measurement by glucometer (mass/volume) 85 mg/dL 70-110 Capillary blood glucose measurement by glucometer (mass/volume) - 04/22/18 20:03 Capillary blood glucose measurement by glucometer (mass/volume) 119 mg/dL 70-110 Capillary blood glucose measurement by glucometer (mass/volume) - 04/23/18 05:10 Capillary blood glucose measurement by glucometer (mass/volume) 155 mg/dL 70-110 Complete blood count (CBC) with automated white blood cell (WBC) differential - 04/23/18 05:35 Blood leukocytes automated count (number/volume) 6.2 10*3/uL 4.3-11.0 Blood erythrocytes automated count (number/volume) 4.57 10*6/uL 4.35-5.85 Venous blood hemoglobin measurement (mass/volume) 13.4 g/dL 11.5-16.0 Blood hematocrit (volume fraction) 41 % 35-52 Automated erythrocyte mean corpuscular volume 89 [foz_us] 80-99 Automated erythrocyte mean corpuscular hemoglobin (mass per erythrocyte) 29 pg 25-34 Automated erythrocyte mean corpuscular hemoglobin concentration measurement (mass/volume) 33 g/dL 32-36 Automated erythrocyte distribution width ratio 13.5 % 10.0- 14.5 Automated blood platelet count (count/volume) 306 10*3/uL 130-400 Automated blood platelet mean volume measurement 9.3 [foz_us] 7.4-10.4 Automated blood neutrophils/100 leukocytes 67 % 42-75 Automated blood lymphocytes/100 leukocytes 20 % 12-44 Blood monocytes/100 leukocytes 10 % 0-12 Automated blood eosinophils/100 leukocytes 3 % 0-10 Automated blood basophils/100 leukocytes 1 % 0-10 Blood neutrophils automated count (number/volume) 4.1 10*3 1.8-7.8 Blood lymphocytes automated count (number/volume) 1.2 10*3 1.0-4.0 Blood monocytes automated count (number/volume) 0.6 10*3 0.0- 1.0 Automated eosinophil count 0.2 10*3/uL 0.0-0.3 Automated blood basophil count (count/volume) 0.0 10*3/uL 0.0-0.1 Comprehensive metabolic panel - 04/23/18 05:35 Serum or plasma sodium measurement (moles/volume) 137 mmol/L 135-145 Serum or plasma potassium measurement (moles/volume) 3.8 mmol/L 3.6-5.0 Serum or plasma chloride measurement (moles/volume) 100 mmol/L 98-107 Carbon dioxide 28 mmol/L 21-32 Serum or plasma anion gap determination (moles/volume) 9 mmol/L 5-14 Serum or plasma urea nitrogen measurement (mass/volume) 18 mg/dL 7-18 Serum or plasma creatinine measurement (mass/volume) 0.87 mg/dL 0.60-1.30 Serum or plasma urea nitrogen/creatinine mass ratio 21 NRG Serum or plasma creatinine measurement with calculation of estimated glomerular filtration rate > NRG Serum or plasma glucose measurement (mass/volume) 138 mg/dL 70-105 Serum or plasma calcium measurement (mass/volume) 9.4 mg/dL 8.5-10.1 Serum or plasma total bilirubin measurement (mass/volume) 0.5 mg/dL 0.1-1.0 Serum or plasma alkaline phosphatase measurement (enzymatic activity/volume) 54 U/L 40-136 Serum or plasma aspartate aminotransferase measurement (enzymatic activity/volume) 20 U/L 5-34 Serum or plasma alanine aminotransferase measurement (enzymatic activity/volume) 14 U/L 0-55 Serum or plasma protein measurement (mass/volume) 5.9 g/dL 6.4-8.2 Serum or plasma albumin measurement (mass/volume) 3.7 g/dL 3.2-4.5 CALCIUM CORRECTED 9.6 mg/dL 8.5-10.1 Serum or plasma troponin i.cardiac measurement (mass/volume) - 04/23/18 05:35 Serum or plasma troponin i.cardiac measurement (mass/volume) 0.028 ng/mL <0.028 Complete blood count (CBC) with automated white blood cell (WBC) differential - 05/05/18 08:15 Blood leukocytes automated count (number/volume) 7.1 10*3/uL 4.3-11.0 Blood erythrocytes automated count (number/volume) 4.82 10*6/uL 4.35-5.85 Venous blood hemoglobin measurement (mass/volume) 14.2 g/dL 11.5-16.0 Blood hematocrit (volume fraction) 43 % 35-52 Automated erythrocyte mean corpuscular volume 88 [foz_us] 80-99 Automated erythrocyte mean corpuscular hemoglobin (mass per erythrocyte) 30 pg 25-34 Automated erythrocyte mean corpuscular hemoglobin concentration measurement (mass/volume) 33 g/dL 32-36 Automated erythrocyte distribution width ratio 13.7 % 10.0- 14.5 Automated blood platelet count (count/volume) 375 10*3/uL 130-400 Automated blood platelet mean volume measurement 8.7 [foz_us] 7.4-10.4 Automated blood neutrophils/100 leukocytes 73 % 42-75 Automated blood lymphocytes/100 leukocytes 16 % 12-44 Blood monocytes/100 leukocytes 9 % 0-12 Automated blood eosinophils/100 leukocytes 2 % 0-10 Automated blood basophils/100 leukocytes 0 % 0-10 Blood neutrophils automated count (number/volume) 5.2 10*3 1.8-7.8 Blood lymphocytes automated count (number/volume) 1.2 10*3 1.0-4.0 Blood monocytes automated count (number/volume) 0.6 10*3 0.0- 1.0 Automated eosinophil count 0.1 10*3/uL 0.0-0.3 Automated blood basophil count (count/volume) 0.0 10*3/uL 0.0-0.1 PT panel in platelet poor plasma by coagulation assay - 05/05/18 08:15 Prothrombin time (PT) in platelet poor plasma by coagulation assay 17.4 s 12.2-14.7 INR in platelet poor plasma or blood by coagulation assay 1.4 0.8-1.4 Activated partial thromboplastin time (aPTT) in platelet poor plasma bycoagulation assay - 05/05/18 08:15 Activated partial thromboplastin time (aPTT) in platelet poor plasma bycoagulation assay 45 s 24-35 Fibrin D-dimer FEU measurement in platelet poor plasma (mass/volume) - 05/05/18 08:15 Fibrin D-dimer FEU measurement in platelet poor plasma (mass/volume) 0.43 ug/mL 0.00-0.49 Comprehensive metabolic panel - 05/05/18 08:15 Serum or plasma sodium measurement (moles/volume) 140 mmol/L 135-145 Serum or plasma potassium measurement (moles/volume) 3.6 mmol/L 3.6-5.0 Serum or plasma chloride measurement (moles/volume) 102 mmol/L 98-107 Carbon dioxide 26 mmol/L 21-32 Serum or plasma anion gap determination (moles/volume) 12 mmol/L 5-14 Serum or plasma urea nitrogen measurement (mass/volume) 17 mg/dL 7-18 Serum or plasma creatinine measurement (mass/volume) 0.85 mg/dL 0.60-1.30 Serum or plasma urea nitrogen/creatinine mass ratio 20 NRG Serum or plasma creatinine measurement with calculation of estimated glomerular filtration rate > NRG Serum or plasma glucose measurement (mass/volume) 127 mg/dL 70-105 Serum or plasma calcium measurement (mass/volume) 9.8 mg/dL 8.5-10.1 Serum or plasma total bilirubin measurement (mass/volume) 0.8 mg/dL 0.1-1.0 Serum or plasma alkaline phosphatase measurement (enzymatic activity/volume) 69 U/L 40-136 Serum or plasma aspartate aminotransferase measurement (enzymatic activity/volume) 22 U/L 5-34 Serum or plasma alanine aminotransferase measurement (enzymatic activity/volume) 17 U/L 0-55 Serum or plasma protein measurement (mass/volume) 7.2 g/dL 6.4-8.2 Serum or plasma albumin measurement (mass/volume) 4.1 g/dL 3.2-4.5 CALCIUM CORRECTED 9.7 mg/dL 8.5-10.1 Magnesium - 05/05/18 08:15 Magnesium 2.8 mg/dL 1.8-2.4 Serum or plasma troponin i.cardiac measurement (mass/volume) - 05/05/18 08:15 Serum or plasma troponin i.cardiac measurement (mass/volume) < ng/mL <0.028 Serum or plasma lithium measurement (moles/volume) - 05/05/18 08:15 BNP level 325.3 pg/mL <100.0 Myoglobin, serum - 05/05/18 08:15 Myoglobin, serum 59.5 ng/mL 10.0-92.0 Lipase - 05/05/18 08:15 Lipase 9 U/L 8-78 Serum or plasma troponin i.cardiac measurement (mass/volume) - 05/05/18 11:12 Serum or plasma troponin i.cardiac measurement (mass/volume) < ng/mL <0.028 Myoglobin, serum - 05/05/18 11:12 Myoglobin, serum 58.8 ng/mL 10.0-92.0 A1C - 06/03/18 08:37 HEMOGLOBIN A1c 7.0 % of total Hgb <5.7 Complete blood count (CBC) with automated white blood cell (WBC) differential - 07/16/18 07:26 Blood leukocytes automated count (number/volume) 8.9 10*3/uL 4.3-11.0 Blood erythrocytes automated count (number/volume) 4.60 10*6/uL 4.35-5.85 Venous blood hemoglobin measurement (mass/volume) 13.3 g/dL 11.5-16.0 Blood hematocrit (volume fraction) 42 % 35-52 Automated erythrocyte mean corpuscular volume 90 [foz_us] 80-99 Automated erythrocyte mean corpuscular hemoglobin (mass per erythrocyte) 29 pg 25-34 Automated erythrocyte mean corpuscular hemoglobin concentration measurement (mass/volume) 32 g/dL 32-36 Automated erythrocyte distribution width ratio 13.5 % 10.0- 14.5 Automated blood platelet count (count/volume) 299 10*3/uL 130-400 Automated blood platelet mean volume measurement 9.0 [foz_us] 7.4-10.4 Automated blood neutrophils/100 leukocytes 72 % 42-75 Automated blood lymphocytes/100 leukocytes 15 % 12-44 Blood monocytes/100 leukocytes 9 % 0-12 Automated blood eosinophils/100 leukocytes 3 % 0-10 Automated blood basophils/100 leukocytes 1 % 0-10 Blood neutrophils automated count (number/volume) 6.4 10*3 1.8-7.8 Blood lymphocytes automated count (number/volume) 1.4 10*3 1.0-4.0 Blood monocytes automated count (number/volume) 0.8 10*3 0.0- 1.0 Automated eosinophil count 0.2 10*3/uL 0.0-0.3 Automated blood basophil count (count/volume) 0.1 10*3/uL 0.0-0.1 PT panel in platelet poor plasma by coagulation assay - 07/16/18 07:26 Prothrombin time (PT) in platelet poor plasma by coagulation assay 14.7 s 12.2-14.7 INR in platelet poor plasma or blood by coagulation assay 1.1 0.8-1.4 Comprehensive metabolic panel - 07/16/18 07:26 Serum or plasma sodium measurement (moles/volume) 139 mmol/L 135-145 Serum or plasma potassium measurement (moles/volume) 3.7 mmol/L 3.6-5.0 Serum or plasma chloride measurement (moles/volume) 97 mmol/L 98-107 Carbon dioxide 14 mmol/L 21-32 Serum or plasma anion gap determination (moles/volume) 28 mmol/L 5-14 Serum or plasma urea nitrogen measurement (mass/volume) 17 mg/dL 7-18 Serum or plasma creatinine measurement (mass/volume) 0.79 mg/dL 0.60-1.30 Serum or plasma urea nitrogen/creatinine mass ratio 22 NRG Serum or plasma creatinine measurement with calculation of estimated glomerular filtration rate > NRG Serum or plasma glucose measurement (mass/volume) 143 mg/dL 70-105 Serum or plasma calcium measurement (mass/volume) 9.6 mg/dL 8.5-10.1 Serum or plasma total bilirubin measurement (mass/volume) 0.7 mg/dL 0.1-1.0 Serum or plasma alkaline phosphatase measurement (enzymatic activity/volume) 139 U/L 40-136 Serum or plasma aspartate aminotransferase measurement (enzymatic activity/volume) 29 U/L 5-34 Serum or plasma alanine aminotransferase measurement (enzymatic activity/volume) 36 U/L 0-55 Serum or plasma protein measurement (mass/volume) 7.0 g/dL 6.4-8.2 Serum or plasma albumin measurement (mass/volume) 4.0 g/dL 3.2-4.5 CALCIUM CORRECTED 9.6 mg/dL 8.5-10.1 TROPONIN T - 07/16/18 07:26 TROPONIN T 16 % <=10 TROPONIN T - 07/16/18 10:20 TROPONIN T 28 % <=10 CMP - 09/19/18 08:09 GLUCOSE 87 mg/dL 65-99 UREA NITROGEN (BUN) 24 mg/dL 7-25 CREATININE 0.95 mg/dL 0.60-0.88 eGFR NON-AFR. [place] 54 mL/min/1.73m2 > OR=60 eGFR 62 mL/min/1.73m2 > OR=60 BUN/CREATININE RATIO 25 (calc) 6-22 SODIUM 139 mmol/L 135-146 POTASSIUM 4.0 mmol/L 3.5-5.3 CHLORIDE 101 mmol/L 98-110 CARBON DIOXIDE 30 mmol/L 20-32 CALCIUM 9.8 mg/dL 8.6-10.4 PROTEIN, TOTAL 7.0 g/dL 6.1-8.1 ALBUMIN 4.4 g/dL 3.6-5.1 GLOBULIN 2.6 g/dL (calc) 1.9-3.7 ALBUMIN/GLOBULIN RATIO 1.7 (calc) 1.0-2.5 BILIRUBIN, TOTAL 0.6 mg/dL 0.2-1.2 ALKALINE PHOSPHATASE 56 U/L 33-130 AST 18 U/L 10-35 ALT 15 U/L 6-29 A1C - 09/19/18 08:09 HEMOGLOBIN A1c 6.4 % of total Hgb <5.7 Encounters ACCT No. Visit Date/Time Discharge Status Pt. Type Provider Facility Loc./Unit Complaint [id number] 09/25/2018 13:20:00 09/25/2018 23:59:59 CLS Outpatient [facility] [id number] 09/19/2018 08:00:00 Document Registration [id number] 06/03/2018 08:15:00 Document Registration [id number] 09/20/2018 00:13:00 09/20/2018 23:59:59 CLS Preadmit Kelton CROSS MD [facility] CARD FAF, PALPITATIONS [id number] 06/21/2018 08:16:00 09/19/2018 00:01:00 DIS Outpatient Kelton CROSS MD [facility] CARD FAF, PALPITATIONS [id number] 08/15/2018 09:07:00 08/15/2018 23:59:59 CLS Outpatient Kelton CROSS MD [facility] CARD CVA, PAF [id number] 07/16/2018 07:09:00 07/16/2018 13:52:00 DIS Emergency BARI HOGAN DO [facility] ER FS CHEST PAIN [id number] 05/05/2018 08:08:00 05/05/2018 11:58:00 DIS Emergency KAYODE FRANKEL MD [facility] ER CARDIAC ISSUES [id number] 04/18/2018 18:00:00 04/23/2018 11:20:00 DIS Inpatient OSORIO DAWSON DO [facility] IRF ACUTE ISCHEMIC STROKE [id number] 10/10/2018 10:00:00 PEN Preadmit Kelton CROSS MD [facility] CATH PAF,SEVERE SYMPTOMATIC SSS,TACHYBRADY
[2018-10-10 08:54] LABS: ALBUMIN 4.2 GM/DL (3.2-4.5); BILIRUBIN,TOTAL 0.3 MG/DL (0.1-1.0); CALCIUM 10.1 MG/DL (8.5-10.1); CREATININE SERUM 0.99 MG/DL (0.60-1.30); POTASSIUM 3.9 MMOL/L (3.6-5.0); TOTAL PROTEIN 7.2 GM/DL (6.4-8.2)
[2018-10-10] MEDS ORDERED: FLUO15CR TP (09:12)
[2018-10-10] MEDS ORDERED: BACI1TAB3 PO (09:12)
[2018-10-10] MEDS ORDERED: CHOL200012 PO (09:12)
[2018-10-10] MEDS ORDERED: FLUT15.88 NS (09:12)
[2018-10-10] MEDS ORDERED: LORA-714 PO (09:12)
[2018-10-10] MEDS ORDERED: ALPR0.254 PO (09:12)
[2018-10-10] MEDS ORDERED: METO-387 PO (09:12)
[2018-10-10] MEDS ORDERED: CALC-140 PO (09:12)
[2018-10-10] MEDS ORDERED: VIT-10 PO (09:12)
[2018-10-10] MEDS ORDERED: NS IV 1000 ML 1,000 ML IV ONE (09:21)
[2018-10-10] MEDS ORDERED: VANCOMYCIN INJECTION 1,000 MG in NS (IVPB) 250 ML IV ONE (09:30)
[2018-10-10] MEDS ORDERED: BACITRACIN INJECTION 50,000 UNIT, SODIUM CHLORIDE 0.9% IRRIGATIO 500 ML IR ONE ×2 (09:30)
[2018-10-10] MEDS ORDERED: MIDAZOLAM 5 MG/5 ML (VERSED) VIAL ONE (09:43)
[2018-10-10] MEDS ORDERED: fentaNYL INJECTION 100 MCG/2 ML AMP ONE ×2 (09:43→11:23)
[2018-10-10] MEDS ORDERED: MIDAZOLAM 2 MG/2 ML (VERSED) VIAL ONE (11:26)
--- NOTE | 2018-10-10 11:38 | Cardiac Procedure Note-CS/ASA ---
Pre-Procedure Note Pre-Op Procedure Note H&P Reviewed The H&P was reviewed, patient examined and no changes noted. Date H&P Reviewed: Oct 10, 2018 Time H&P Reviewed: 08:30 Conscious Sedation Pre-Proced Time 08:30 ASA Score 3 For ASA 3 and 4: Consider anesthesia and medical clearance. Also, for patients with a history of failed moderate sedation consider anesthesia. Airway Lungs Heart ASA score ASA 1: a normal healthy patient ASA 2: a patient with a mild systemic disease (mid diabetes, controlled hypertension, obesity ASA 3: a patient with a severe systemic disease that limits activity (angina, COPD, prior Myocardial infarction) ASA 4: a patient with an incapacitating disease that is a constant threat to life (CHF, renal failure) ASA 5: a moribund patient not expected to survive 24 hrs. (ruptured aneurysm) ASA 6: a declared brain- patient whose organs are being harvested. For emergent operations, add the letter E after the classification Mallampati Classification Grade 1 Sedation Plan Analgesia, Amnesia, Plan communicated to team members, Discussed options with patient/fam, Discussed risks with patient/fam The patient is an appropriate candidate to undergo the planned procedure, sedation, and anesthesia. The patient immediately re-assessed prior to indication. Kelton CROSS MD Oct 10, 2018 11:38
--- NOTE | 2018-10-10 11:41 | History & Physicial-Cardiolgy ---
HPI-Cardiology Cardiology Consultation: Date of Consultation 10/10/18 Date of Admission Attending Physician Kelton Carlos MD Admitting Physician Ramos Pandya MD Consulting Physician Kelton CARLOS MD HPI: Time Seen by a Provider: 09:00 Chief Complaint: symptomatic sinus node dysfunction. this is a 88-year-old lady who has previous history of CVA, non-obstructive CAD, diabetes, hypertension, paroxysmal atrial fibrillation and severe symptomatic sinus node dysfunction, tachycardia bradycardia syndrome. She requires Cardizem for atrial fibrillation with rapid ventricular rate, however developed significant sinus bradycardia. calcium channel brigida or beta blockers are essential drug therapy. Review of Systems-Cardiology Review of Systems Constitutional: As described under HPI; No As described under HPI, No no symptoms reported, No chills, No fever, No lightheadedness Eyes: No As described under HPI, No no symptoms reported, No blindness, No blurred vision, No contact lenses, No drainage, No decreased acuity, No foreign body sensation, No pain, No vision change Ears/Nose/Throat: No As described under HPI, No no symptoms reported, No chronic hearing loss, No ear discharge, No ear pain, No nasal drainage, No ulcerations Respiratory: No no symptoms reported; As described under HPI; No As described under HPI, No cough, No orthopnea, No shortness of breath, No SOB with excertion Cardiovascular: No no symptoms reported; As described under HPI; No As described under HPI, No chest pain, No edema, No irregular heart rate, No lightheadedness, No palpitations Gastrointestinal: No no symptoms reported, No As described under HPI, No abdomen distended, No abdominal pain, No blood streaked bowels, No constipation, No diarrhea, No nausea, No vomiting, No stool coloration changes Genitourinary: No As described under HPI, No burning, No dysuria, No discharge, No frequency, No flank pain, No hematuria, No urgency : Yes : No Skin: No rash, No skin related problems, No ulcerations Psychiatric/Neurological: No anxiety, No depression, No seizure, No focal weakness, No syncope Hematologic: No bleeding abnormalities KCP-Ecdxyo-Jtiajg Hx Patient Social History Alcohol Use: Denies Use Recreational Drug Use: No Smoking Status: Never a Smoker 2nd Hand Smoke Exposure: No Recent Foreign Travel: No Recent Infectious Disease Expo: No Immunizations Up To Date Date of Pneumonia Vaccine: Apr 18, 2017 Date of Influenza Vaccine: Dec 24, 2017 Past Medical History PMH As described under Assessment. Family Medical History Family History: Cardiovascular disease G8 BROTHER Diabetes mellitus SON Allergies and Home Medications Allergies Coded Allergies: Penicillins (Unverified Allergy, Unknown, rash, 07/16/18) Sulfa (Sulfonamide Antibiotics) (Unverified Allergy, Unknown, rash, 07/16/18) amlodipine (Unverified Allergy, Unknown, feet and leg swelling, 07/16/18) azithromycin (Unverified Allergy, Unknown, diarrhea, 07/16/18) diclofenac (Unverified Allergy, Unknown, colon cramp, 07/16/18) diltiazem (Unverified Allergy, Unknown, headache, jaw ache, swollen gums, 07/16/18) esomeprazole (Unverified Allergy, Unknown, gas, 07/16/18) famotidine (Unverified Allergy, Unknown, 04/19/18) fluocinonide (Unverified Allergy, Unknown, sore mouth, 07/16/18) glyburide (Unverified Allergy, Unknown, cough, hoarseness, hair loss, 07/16/18) lisinopril (Verified Allergy, Unknown, feet cramp, 07/16/18) losartan (Unverified Allergy, Unknown, cough, 07/16/18) meloxicam (Unverified Allergy, Unknown, bloody stool, 07/16/18) metaxalone (Verified Allergy, Unknown, nervousness, 07/16/18) metformin (Unverified Allergy, Unknown, diarrhea, 07/16/18) misoprostol (Unverified Allergy, Unknown, colon cramp, 07/16/18) naproxen (Unverified Allergy, Unknown, 04/19/18) pioglitazone (Unverified Allergy, Unknown, stiffness, 07/16/18) pirbuterol (Unverified Allergy, Unknown, face itching, 07/16/18) rosiglitazone (Unverified Allergy, Unknown, stiffness, 07/16/18) Uncoded Allergies: multivitamin (Allergy, Unknown, rash, 07/16/18) Home Medications Alprazolam 0.25 Mg Tablet, 0.25-0.5 MG PO BID PRN for ANXIETY, (Reported) Amlodipine Besylate 5 Mg Tablet, 5 MG PO DAILY, (Reported) Atorvastatin Calcium 40 Mg Tablet, 40 MG PO HS, (Reported) Bacillus Coagulans 1 Each Tab.chew, 1 EACH PO DAILY, (Reported) Cholecalciferol (Vitamin D3) 2,000 Unit Capsule, 2,000 UNIT PO DAILY, (Reported) Fluocinonide 15 Gm Cream..g., 15 GM TP BID, (Reported) Fluticasone Propionate 15.8 Ml [place].susp, 15.8 ML NS DAILY, (Reported) Hydrochlorothiazide 25 Mg Tablet, 25 MG PO DAILY, (Reported) Insulin Glargine,Hum.rec.anlog 100 Unit/1 Ml Insuln.pen, 20 UNITS SC HS, (Reported) Insulin Lispro 100 Unit/1 Ml Insuln.pen, 5 UNITS SC TIDAC, (Reported) Loratadine 10 Mg Tab.rapdis, 10 MG PO DAILY, (Reported) Metoprolol Succinate 25 Mg Tab.er.24h, 25 MG PO DAILY, (Reported) Naproxen Sodium 220 Mg Tablet, 220 MG PO TID PRN for PAIN-MILD TO MODERATE, (Reported) Rivaroxaban 15 Mg Tablet, 15 MG PO DAILY@1700 Prescribed by: OSORIO DAWSON on 04/23/18 0902 Vit A/C/E/Zinc/Selenium/Copper 1 Each Tablet, 1 EACH PO DAILY, (Reported) Patient Home Medication List Home Medication List Reviewed: Yes Physical Exam-Cardiology Physical Exam Vital Signs/I&O 10/10/18 08:28 Temp 98.1 Pulse 53 Resp 20 B/P (MAP) 139/66 (90) Pulse Ox 96 O2 Delivery Room Air Capillary Refill : Constitutional: appears stated age; No apparent distress; well-developed, well- nourished HEENT: PERRL; No discharge; hearing is well preserved, oral hygience is good; No ulceration, No xanthelasmas are seen Neck: No carotid bruit; carotid pulses are 2 + bilaterally Respiratory: No accessory muscle use, No respiratory distress, No chest tender, No chest expansion is symmetric; chest is bilaterally symmetric; No lungs clear to percussion; lungs clear to auscultation; No crackles, No rhonchi, No rales, No stridor, No wheezing, No pleural rub, No other Cardiovascular: regular rate-rhythm; No irregularly irregular, No extra beats, No parasternal heave is noted, No JVD, No edema, No bradycardia, No tachycardia, No point of maximal impulse, No cardiac thrills are palpable; S1 and S2; No gallop/S3, No gallop/S4, No diastolic murmur, No systolic murmur, No friction rub, No click, No other Gastrointestinal: No tender, No soft, No round, No distended, No pulsatile mass, No organomegaly, No guarding, No rebound, No tenderness, No hernia, No mass, No audible bowel sounds, No abnormal bowel sounds, No abdominal bruits, No spleenomegaly, No other Rectal: deferred Extremities: No normal range of motion, No non-tender, No normal inspection, No pedal edema, No calf tenderness, No normal capillary refill, No pelvis stable, No calf tenderness, No inflammation, No pedal edema, No slow capillary refill, No swelling, No other, No abrasion, No clubbing, No cyanosis, No ecchymosis, No laceration, No no lower extremity edema bilateral, No significant edema, No tenderness, No wound Neurologic/Psychiatric: no motor/sensory deficits, alert, normal mood/affect, oriented x 3, power is 5/5 both on sides Skin: No rash, No ulcerations Data Review Labs Laboratory Tests 10/10/18 08:24: White Blood Count 8.4, Red Blood Count 4.45, Hemoglobin 12.9, Hematocrit 40, Mean Corpuscular Volume 90, Mean Corpuscular Hemoglobin 29, Mean Corpuscular Hemoglobin Concent 32, Red Cell Distribution Width 13.3, Platelet Count 303, Mean Platelet Volume 9.1, Prothrombin Time 13.0, INR Comment 1.0, Activated Partial Thromboplast Time 34, Sodium Level 137, Potassium Level 3.9, Chloride Level 101, Carbon Dioxide Level 26, Anion Gap 10, Blood Urea Nitrogen 24H, Creatinine 0.99, Estimat Glomerular Filtration Rate 53, BUN/Creatinine Ratio 24, Glucose Level 137H, Calcium Level 10.1, Corrected Calcium 9.9, Total Bilirubin 0.3, Aspartate Amino Transf (AST/SGOT) 19, Alanine Aminotransferase (ALT/SGPT) 14, Alkaline Phosphatase 61, Total Protein 7.2, Albumin 4.2, Triglycerides Level 79, Cholesterol Level 103, LDL Cholesterol Direct 47, VLDL Cholesterol 16, HDL Cholesterol 45 ECG Impression ECG Initial ECG Rhythm: Normal Sinus A/P-Cardiology Assessment/Admission Diagnosis symptomatic sinus node dysfunction, Tachycardia-bradycardia syndrome, Paroxysmal atrial fibrillation Admission Status: Observation Plan dual-chamber permanent pacemaker is recommended. Kelton CARLOS MD Oct 10, 2018 11:41
[2018-10-10] MEDS ORDERED: NEO/POLY/BAC (NEOSPORIN) OINT 15 GM TUBE ONE (11:45)
--- NOTE | 2018-10-10 11:46 | Permanent Pacemaker Implant ---
Dual Chamber Pacemaker Implant PROCEDURE PHYSICIAN: Deny Carlos MD DUAL CHAMBER PACEMAKER IMPLANTATION: DATE OF PROCEDURE: 10/10/18 CARDIAC TALENT ACQUISITION LEAD: Dr. Deny Carlos INDICATION: severe symptomatic sinus node dysfunction. PREOPERATIVE DIAGNOSIS: severe symptomatic sinus node dysfunction, tachycardia bradycardia syndrome. POSTOPERATIVE DIAGNOSIS: successful dual-chamber permanent pacemaker implantation. HISTORY: this is a 88-year-old lady with paroxysmal atrial fibrillation with rapid ventricular rate, severe bradycardia with heart rate of 34 BPM on beta brigida or calcium channel brigida. Calcium channel blockers or beta blockers are essential drug therapy. Spoke at length with the patient and recommended dual- chamber permanent pacemaker for severe symptomatic sinus node dysfunction. Dual- chamber permanent pacemaker was recommended. PROCEDURE PERFORMED: 1. Dual-chamber permanent pacemaker implantation. 2. Fluoroscopy. 3. Central venous access. ANESTHESIA: Local anesthesia, conscious sedation. COMPLICATIONS: None. ESTIMATED BLOOD LOSS:20 mL. SPECIMENS: None. ORAL ANTICOAGULATION: None. FLUOROSCOPY TIME: 6.5 minutes. FLUOROSCOPY DOSE: 25 mgy CONTRAST DOSE: none. PROCEDURE DETAILS: The patient is a 88 female and after all of the patients questions were answered, the patient was brought to the EP Lab. The patient's left chest was prepped and draped in sterile fashion. A 2 inch horizontal incision was made 1 cm below the clavicle and dissection carried down to the pectoralis fascia. Using the modified Seldinger technique and under fluoroscopy guidance, the anterior aspect of the left axillary vein was accessed 2 times. The J wires were secured to the drapes with a mosquito clamp. A 7-Occitan sheath was introduced over one of the J-wires. The RV lead was then inserted. The RV lead was directed across the tricuspid valve to the apical septal portion of the right ventricle. The position was checked in DASHAWN and DAVIS views. The screw was deployed and the lead connected to the web applications programmer. Close sensing and pacing thresholds were obtained. Diaphragmatic pacing was ruled out. The lead was secured with 2-0 silk ties to the underlying muscle and fascia. Next, a 7-Occitan sheath was introduced through the remaining J-wire. An atrial lead was then introduced and guided to the level of the right appendage. The screw was deployed and the lead was connected to the interrogator. Good sensing and pacing thresholds were obtained. Diaphragmatic pacing was ruled out. The leads were secured with 2-0 silk ties to the underlying muscle and fascia. The leads were connected to the device in a hermetic fashion. The device and leads were placed in the pocket. Aggressive irrigation with saline solution was done. The device was secured to the underlying muscle and fascia with a 2-0 silk tie. interrogation of the device revealed good integrity of all the leads and good connections. The wound was then closed using 2 layers. The first layer was interrupted 2-0 absorbable Vicryl suture. The last layer was a single subcuticular layer with 4- 0 Vicryl suture. Half inch Steri-Strips and a small dressing were then applied to the wound. The patient tolerated the procedure well and was returned to the recovery room in stable condition with stable vital signs. DEVICE INFORMATION: [employer] [id number] [id number] Kelsea FARNSWORTH, serial number RN [id number] RA LEAD: model number [id number], length 52, serial number [id number]. RV LEAD: model number [id number], length 58, serial number [id number]. PER-OPERATIVE DEVICE INTERROGATION: right atrial capture threshold 1.25 V at 0.6 ms, impedance 608 ohms, R wave 2 mV. RV capture threshold 1 V at 0.4 ms, impedance 665 ohms, R-wave 15 mV. PLAN: The patient transferred to the ICU. We will continue with two more doses of IV antibiotics. We will check a chest x-ray and interrogate the device in the morning. The patient will continue on oral antibiotics for 5 days. Deny Carlos MD, RS, CCDS Cardiac Electrophysiology Kelton CARLOS MD Oct 10, 2018 11:46
[2018-10-10] MEDS ORDERED: PATIENT MAY USE OWN MEDS, ALL PO SCH (12:00)
--- NOTE | 2018-10-10 13:02 | Diagnostic Imaging Report ---
INDICATION: Pacemaker placement. TIME OF EXAM: 12:05 PM Correlation is made with prior chest from 07/16/2018. FINDINGS: Dual-lead left-subclavian cardiac pacer has been place with lead tips in region of right atrium and right ventricle. No pneumothorax is seen. Lungs are clear. There is no effusion. IMPRESSION: Pacemaker placement, as described. Dictated by: Dictated on workstation # [id number]
[2018-10-10] MEDS: VANCOMYCIN INJECTION 1,000 MG in NS (IVPB) 250 ML IV SCH (21:11)
[2018-10-11 04:00] VITALS: BP 135/76
[2018-10-11] MEDS: VANCOMYCIN INJECTION 1,000 MG in NS (IVPB) 250 ML IV SCH (08:48)
--- NOTE | 2018-10-11 10:15 | Cardiology Discharge Summary ---
Diagnosis/Chief Complaint Date of Admission 10/10/2018 Date of Discharge 10/11/2018 Admission Diagnosis PAF, Symptomatic sinus node dysfunction, Tachycardia bradycardia syndrome Final/Discharge Diagnosis Successful Dual Chamber PPM Chief Complaint/HPI Chief Complaint/HPI this is a 88-year-old lady who has previous history of CVA, non-obstructive CAD, diabetes, hypertension, paroxysmal atrial fibrillation and severe symptomatic sinus node dysfunction, tachycardia bradycardia syndrome. She requires Cardizem for atrial fibrillation with rapid ventricular rate, however developed significant sinus bradycardia. calcium channel brigida or beta blockers are essential drug therapy. Discharge Summary Procedures Dual chamber PPM placement Discharge Physical Examination Stable Hospital Course Was the Problem List Reviewed?: Yes Normal EKG today. Normal Device interrogation. Discussion & Recommendations Discussion Discharge took over 30 minutes to complete. DC instructions discussed at length. Follow up appt.: Wound check in one week. Dr Carlos in four weeks Dicharge Diet: Regular Diet Activity as Tolerated: Yes Home Medications Reviewed patient Home Medication Reconciliation performed by pharmacy medication reconciliations field evidence technician and/or nursing. Patients Allergies have been reviewed. Discharge Home Medications: Reviewed and agree with Discharge Medication list on patient's Discharge Instruction sheet Condition at discharge Stable Instructions to patient/family Discussed at length Kelton CARLOS MD Oct 11, 2018 10:15
[2018-10-11] MEDS ORDERED: CLIN300C11 PO (10:17)
--- NOTE | 2018-10-11 10:18 | Discharge Inst-Post Device ---
Discharge Inst-Post Device Follow up/Plan wound check in one week. Dr Carlos in four weeks. Heart Healthy Diet Do not lift arm on side of device placement above head for 4 weeks. Do not push and pull heavy objects for 4 weeks. Activity as tolerated. Leave dressing on until follow up at the office. Kelton CARLOS MD Oct 11, 2018 10:18
--- NOTE | 2018-10-11 10:35 | Diagnostic Imaging Report ---
EXAMINATION: Chest 1 view HISTORY: Pacemaker placement FINDINGS: Comparison is 10/10/2018. Left subclavian pacemaker is present with leads projecting over the right atrium and ventricle. The lungs are clear. No edema. No pneumonia. No pleural effusion. No pneumothorax. Heart is normal in size. IMPRESSION: 1. Clear lungs. Dictated by: Dictated on workstation # [id number]
== END 2018-10-11 10:54 | disposition home or self-care (01) ==
LOC: CATH 07:58 → ICU 12:20 → CATH 10-11 10:54 → ICU 10-11 11:58
PROVIDERS: ATTEND Internal Medicine Interventional Cardiology
DX: I49.5 Sick sinus syndrome (principal); I25.10 Atherosclerotic heart disease of native coronary artery without angina pectoris; E11.9 Type 2 diabetes mellitus without complications; I10 Essential (primary) hypertension; I48.0 Paroxysmal atrial fibrillation; Z86.73 Personal history of transient ischemic attack (TIA), and cerebral infarction without residual deficits; Z88.0 Allergy status to penicillin; Z88.1 Allergy status to other antibiotic agents; Z88.2 Allergy status to sulfonamides; Z79.899 Other long term (current) drug therapy; Z79.4 Long term (current) use of insulin
CPT/HCPCS: 33208; 36415; 71045; 80053; 80061; 85027; 85610; 85730; 87081; 93005

== ENCOUNTER 2018-10-17 09:39 | Emergency (ER) | payer MEDICARE, BC | END 2018-10-17 12:03 | disposition home or self-care (01) | LOC: ER 09:39 ==

== ENCOUNTER 2019-01-22 08:14 | Emergency (ER) | payer MEDICARE, BC ==
[~2019-01-22] VITALS: Ht 160 cm; Wt 50.0 kg
[~2019-01-22 08:14] MED LIST changes: +ALPR0.254 PO; +BACI1TAB3 PO; +CALC-140 PO; +CHOL200012 PO; +CLIN300C11 PO; +FLUO15CR TP; +FLUT15.88 NS; +LORA-714 PO; +METO-387 PO; +VIT-10 PO
--- NOTE | 2019-01-22 08:41 | ED General ---
General Chief Complaint: General Problems/Pain Stated Complaint: ANXIETY Nursing Triage Note: PT REPORTS SHE WAS SHAKY. PT TOOK A XANAX AT HOME WHILE EMS WAS ON SCENE. Nursing Sepsis Screen: No Definite Risk Source of Information: Patient Exam Limitations: No Limitations History of Present Illness Date Seen by Provider: Jan 22, 2019 Time Seen by Provider: 08:25 Initial Comments The patient is a pleasant 88-year-old female who presents for evaluation of "feeling shaky". She states that she called EMS and took a Xanax and is now feeling better. She denies any other complaints. She is alert and oriented 4, calm, and appears to be in no distress. She denies chest pain or shortness of breath, fevers or chills, abdominal or back pain, urinary complaints, headache, neck pain, nausea or vomiting. Timing/Duration: 1 Hour Severity: Mild Associated Systoms: Denies Symptoms Allergies and Home Medications Allergies Coded Allergies: Penicillins (Unverified Allergy, Unknown, rash, 07/16/18) Sulfa (Sulfonamide Antibiotics) (Unverified Allergy, Unknown, rash, ) amlodipine (Unverified Allergy, Unknown, feet and leg swelling, 07/16/18) azithromycin (Unverified Allergy, Unknown, diarrhea, 07/16/18) diclofenac (Unverified Allergy, Unknown, colon cramp, 07/16/18) diltiazem (Unverified Allergy, Unknown, headache, jaw ache, swollen gums, 07/16/18) esomeprazole (Unverified Allergy, Unknown, gas, 07/16/18) famotidine (Unverified Allergy, Unknown, 04/19/18) fluocinonide (Unverified Allergy, Unknown, sore mouth, 07/16/18) glyburide (Unverified Allergy, Unknown, cough, hoarseness, hair loss, 07/16/18) lisinopril (Verified Allergy, Unknown, feet cramp, 07/16/18) losartan (Unverified Allergy, Unknown, cough, 07/16/18) meloxicam (Unverified Allergy, Unknown, bloody stool, 07/16/18) metaxalone (Verified Allergy, Unknown, nervousness, 07/16/18) metformin (Unverified Allergy, Unknown, diarrhea, 07/16/18) misoprostol (Unverified Allergy, Unknown, colon cramp, 07/16/18) naproxen (Unverified Allergy, Unknown, 04/19/18) pioglitazone (Unverified Allergy, Unknown, stiffness, 07/16/18) pirbuterol (Unverified Allergy, Unknown, face itching, 07/16/18) rosiglitazone (Unverified Allergy, Unknown, stiffness, 07/16/18) Uncoded Allergies: multivitamin (Allergy, Unknown, rash, 07/16/18) Home Medications Alprazolam 0.25 Mg Tablet, 0.25-0.5 MG PO BID PRN for ANXIETY, (Reported) Amlodipine Besylate 5 Mg Tablet, 5 MG PO DAILY, (Reported) Atorvastatin Calcium 40 Mg Tablet, 40 MG PO HS, (Reported) Bacillus Coagulans 1 Each Tab.chew, 1 EACH PO DAILY, (Reported) Cholecalciferol (Vitamin D3) 2,000 Unit Capsule, 2,000 UNIT PO DAILY, (Reported) Clindamycin HCl 300 Mg Capsule, 300 MG PO TID Prescribed by: Kelton CROSS on 10/11/18 1017 Fluocinonide 15 Gm Cream..g., 15 GM TP BID, (Reported) Fluticasone Propionate 15.8 Ml [place].susp, 15.8 ML NS DAILY, (Reported) Hydrochlorothiazide 25 Mg Tablet, 25 MG PO DAILY, (Reported) Insulin Glargine,Hum.rec.anlog 100 Unit/1 Ml Insuln.pen, 20 UNITS SC HS, (Reported) Insulin Lispro 100 Unit/1 Ml Insuln.pen, 5 UNITS SC TIDAC, (Reported) Loratadine 10 Mg Tab.rapdis, 10 MG PO DAILY, (Reported) Metoprolol Succinate 25 Mg Tab.er.24h, 25 MG PO DAILY, (Reported) Naproxen Sodium 220 Mg Tablet, 220 MG PO TID PRN for PAIN-MILD TO MODERATE, (Reported) Rivaroxaban 15 Mg Tablet, 15 MG PO DAILY@1700 Prescribed by: OSORIO DAWSON on 04/23/18 0902 Vit A/C/E/Zinc/Selenium/Copper 1 Each Tablet, 1 EACH PO DAILY, (Reported) Patient Home Medication List Home Medication List Reviewed: Yes Review of Systems Review of Systems Constitutional: no symptoms reported EENTM: no symptoms reported Respiratory: no symptoms reported Cardiovascular: no symptoms reported Gastrointestinal: no symptoms reported Genitourinary: no symptoms reported Musculoskeletal: no symptoms reported Skin: no symptoms reported Psychiatric/Neurological: No Symptoms Reported Hematologic/Lymphatic: No Symptoms Reported Immunological/Allergic: no symptoms reported All Other Systems Reviewed Negative Unless Noted: Yes Past Seoacnr-Qcabex-Tclmjf Hx Past Med/Social Hx: Reviewed Nursing Past Med/Soc Hx Patient Social History Alcohol Use: Denies Use Recreational Drug Use: No 2nd Hand Smoke Exposure: No Recent Foreign Travel: No Contact w/Someone Who Travel: No Recent Infectious Disease Expo: No Recent Hopitalizations: No Physical Abuse: No Sexual Abuse: No Mistreated: No Fear: No Immunizations Up To Date Date of Pneumonia Vaccine: Apr 18, 2017 Date of Influenza Vaccine: Dec 24, 2017 Seasonal Allergies Seasonal Allergies: No Past Medical History Surgeries: Yes (D & C, pacemaker 10/18, RIGHT HIP ) Gallbladder, Joint Replacement, Pacemaker, Tubal Ligation Respiratory: No Currently Using CPAP: No Currently Using BIPAP: No Cardiac: Yes (HERE TODAY FOR PACEMAKER, SSS) Atrial Fibrillation, Hypertension Neurological: Yes Stroke Female Reproductive Disorders: Denies Sexually Transmitted Disease: No HIV/AIDS: No Genitourinary: No Gastrointestinal: Yes Gastroesophageal Reflux Musculoskeletal: Yes Arthritis Endocrine: Yes (dyslipidemia) Diabetes, Insulin dep HEENT: Yes Hearing Impairment: Hard of Hearing Cancer: No Psychosocial: No Integumentary: Yes (pemphigoid) Blood Disorders: No Adverse Reaction/Blood Tranf: No Family Medical History Cardiovascular disease G8 BROTHER Diabetes mellitus SON Physical Exam Vital Signs Vital Signs - First Documented 01/22/19 08:26 Temp 36.8 Pulse 79 Resp 18 B/P (MAP) 153/83 (106) Pulse Ox 97 O2 Delivery Room Air Capillary Refill : Less Than 3 Seconds Height, Weight, BMI Height: 5'0" Weight: 120lbs. 0.0oz. 54.796873lh; 19.00 BMI Method:Stated General Appearance: No Apparent Distress, WD/WN HEENT: PERRL/EOMI, Pharynx Normal Neck: Full Range of Motion, Non Tender, Supple Respiratory: Chest Non Tender, Normal Breath Sounds, No Accessory Muscle Use, No Respiratory Distress Cardiovascular: Regular Rate, Rhythm, No Edema, No Murmur Gastrointestinal: Normal Bowel Sounds, Non Tender, Soft Extremity: Normal Capillary Refill, Pedal Edema (LLE, pt reports recent hip replacement) Neurologic/Psychiatric: Alert, Oriented x3, No Motor/Sensory Deficits, Normal Mood/Affect Skin: Normal Color, Warm/Dry Progress/Results/Core Measures Suspected Sepsis Recent Fever Within 48 Hours: No Infection Criteria Present: None New/Unexplained Altered Menta: No Sepsis Screen: No Definite Risk SIRS Temperature: Pulse: 79 Respiratory Rate: 18 Laboratory Tests 01/22/19 09:00: White Blood Count 6.4 Blood Pressure 153 /83 Mean: 106 Laboratory Tests 01/22/19 09:00: Creatinine 0.78, Platelet Count 487H, Total Bilirubin 0.5 Results/Orders Lab Results Laboratory Tests Test 01/22/19 09:00 01/22/19 09:35 Range/Units White Blood Count 6.4 4.3-11.0 10^3/uL Red Blood Count 3.25 L 4.35-5.85 10^6/uL Hemoglobin 9.2 L 11.5-16.0 G/DL Hematocrit 30 L 35-52 % Mean Corpuscular Volume 92 80-99 FL Mean Corpuscular Hemoglobin 28 25-34 PG Mean Corpuscular Hemoglobin Concent 31 L 32-36 G/DL Red Cell Distribution Width 14.4 10.0-14.5 % Platelet Count 487 H 130-400 10^3/uL Mean Platelet Volume 8.3 7.4-10.4 FL Neutrophils (%) (Auto) 82 H 42-75 % Lymphocytes (%) (Auto) 8 L 12-44 % Monocytes (%) (Auto) 8 0-12 % Eosinophils (%) (Auto) 1 0-10 % Basophils (%) (Auto) 1 0-10 % Neutrophils # (Auto) 5.2 1.8-7.8 X 10^3 Lymphocytes # (Auto) 0.5 L 1.0-4.0 X 10^3 Monocytes # (Auto) 0.5 0.0-1.0 X 10^3 Eosinophils # (Auto) 0.1 0.0-0.3 10^3/uL Basophils # (Auto) 0.0 0.0-0.1 10^3/uL Neutrophils % (Manual) 83 % Lymphocytes % (Manual) 9 % Monocytes % (Manual) 2 % Eosinophils % (Manual) 1 % Basophils % (Manual) 0 % Metamyelocytes % 1 % Band Neutrophils 2 % Atypical Lymphocytes 2 % Sodium Level 136 135-145 MMOL/L Potassium Level 4.2 3.6-5.0 MMOL/L Chloride Level 101 98-107 MMOL/L Carbon Dioxide Level 26 21-32 MMOL/L Anion Gap 9 5-14 MMOL/L Blood Urea Nitrogen 14 7-18 MG/DL Creatinine 0.78 0.60-1.30 MG/DL Estimat Glomerular Filtration Rate > 60 BUN/Creatinine Ratio 18 Glucose Level 104 70-105 MG/DL Calcium Level 9.0 8.5-10.1 MG/DL Corrected Calcium 9.5 8.5-10.1 MG/DL Total Bilirubin 0.5 0.1-1.0 MG/DL Aspartate Amino Transf (AST/SGOT) 15 5-34 U/L Alanine Aminotransferase (ALT/SGPT) 11 0-55 U/L Alkaline Phosphatase 81 40-136 U/L Total Protein 6.0 L 6.4-8.2 GM/DL Albumin 3.4 3.2-4.5 GM/DL My Orders Orders - VAZQUEZ SOLIMAN DO Cbc With Automated Diff (01/22/19 08:45) Comprehensive Metabolic Panel (01/22/19 08:45) Ua Culture If Indicated (01/22/19 08:45) Manual Differential (01/22/19 09:00) Urinalysis (01/22/19 10:02) Vital Signs/I&O 01/22/19 08:26 Temp 36.8 Pulse 79 Resp 18 B/P (MAP) 153/83 (106) Pulse Ox 97 O2 Delivery Room Air Capillary Refill : Less Than 3 Seconds Blood Pressure Mean: 106 Progress Note : Progress Note @1005 - the patient has been updated on her lab work. The patient tells me that she had not yet taken her Xanax this morning when she was having the anxiety and shakiness and that after she took the Xanax it seemed to help greatly. She has no additional complaints and states that she would like to go home. Workup today fails reveal any emergent pathology. Advise close follow-up with her physician in the next 2-3 days and return to the emergency department for new or worsening symptoms. ECG EKG : Comment EKG@0814 - atrial this rhythm, rate of 72, normal axis, no acute ischemic findings noted, no STEMI, reviewed and interpreted by myself Departure Impression Primary Impression: Anxiety Disposition: 01 HOME, SELF-CARE Condition: Stable Departure-Patient Inst. Decision time for Depature: 10:10 Referrals: SELF,ANA ROSA SALCEDO (PCP) Primary Care Physician MARCUS CANO APRN (Family) Primary Care Physician Patient Instructions: Anxiety, Adult (DC) Add. Discharge Instructions: Follow-up with your doctor in the next 2-3 days. Return to the emergency Department immediately for new or worsening symptoms. VAZQUEZ SOLIMAN DO Jan 22, 2019 08:41
[2019-01-22 09:08] LABS: BASOPHILS % (AUTO) 1 % (0-10); EOSINOPHILS % (AUTO) 1 % (0-10); HEMATOCRIT 30 % (35-52); HEMOGLOBIN 9.2 G/DL (11.5-16.0); LYMPHOCYTES % (AUTO) 8 % (12-44); MEAN CORPUSCULAR HEMOGLOBIN 28 PG (25-34); MEAN CORPUSCULAR HGB CONC 31 G/DL (32-36); MEAN CORPUSCULAR VOLUME 92 FL (80-99); MEAN PLATELET VOLUME 8.3 FL (7.4-10.4); MONOCYTES % (AUTO) 8 % (0-12); NEUTROPHILS % (AUTO) 82 % (42-75); PLATELET COUNT 487 10^3/uL (130-400); RED CELL DISTRIBUTION WIDTH 14.4 % (10.0-14.5); WHITE BLOOD COUNT 6.4 10^3/uL (4.3-11.0)
[2019-01-22 09:09] LABS: EOSINOPHILS # (AUTO) 0.1 10^3/uL (0.0-0.3); LYMPHOCYTES # (AUTO) 0.5 X 10^3 (1.0-4.0); MONOCYTES # (AUTO) 0.5 X 10^3 (0.0-1.0); NEUTROPHILS # (AUTO) 5.2 X 10^3 (1.8-7.8)
[2019-01-22 09:27] LABS: BUN/CREATININE RATIO 18; CARBON DIOXIDE 26 MMOL/L (21-32); CHLORIDE 101 MMOL/L (98-107); CREATININE SERUM 0.78 MG/DL (0.60-1.30); GFR ESTIMATED > 60; POTASSIUM 4.2 MMOL/L (3.6-5.0); SODIUM 136 MMOL/L (135-145)
[2019-01-22 09:28] LABS: ALANINE AMINOTRANSFERASE 11 U/L (0-55); ALBUMIN 3.4 GM/DL (3.2-4.5); ALKALINE PHOSPHATASE 81 U/L (40-136); BILIRUBIN,TOTAL 0.5 MG/DL (0.1-1.0); GLUCOSE 104 MG/DL (70-105)
[2019-01-22 09:36] LABS: BAND NEUTROPHILS 2 %; BASOPHILS % (MANUAL) 0 %; EOSINOPHILS % (MANUAL) 1 %; LYMPHOCYTES % (MANUAL) 9 %; METAMYELOCYTES % 1 %; MONOCYTES % (MANUAL) 2 %; NEUTROPHILS % (MANUAL) 83 %
[2019-01-22 09:37] LABS: ATYPICAL LYMPHOCYTES 2 %
[2019-01-22 10:12] LABS: AMORPHOUS SEDIMENT,UR FEW AMOR PHOSPHATE /LPF; BACTERIA,URINE NEGATIVE /HPF; BILIRUBIN,URINE NEGATIVE (NEGATIVE); CLARITY,URINE CLEAR; COLOR,URINE YELLOW; GLUCOSE, URINE (UA) NEGATIVE (NEGATIVE); KETONES,URINE NEGATIVE (NEGATIVE); LEUKOCYTE ESTERASE ,URINE NEGATIVE (NEGATIVE); NITRITE,URINE NEGATIVE (NEGATIVE); PH,URINE 8.5 (5-9); PROTEIN,URINE NEGATIVE (NEGATIVE); WBC,URINE 0-2 /HPF
[2019-01-22 10:22] VITALS: BP 156/67
== END 2019-01-22 10:17 | disposition home or self-care (01) ==
LOC: EDUNIT# 08:14 → ER FS 08:15
DX: R41.9 Unspecified symptoms and signs involving cognitive functions and awareness (principal); I10 Essential (primary) hypertension; E11.9 Type 2 diabetes mellitus without complications; I48.91 Unspecified atrial fibrillation; K21.9 Gastro-esophageal reflux disease without esophagitis; Z86.73 Personal history of transient ischemic attack (TIA), and cerebral infarction without residual deficits; Z98.51 Tubal ligation status; Z95.0 Presence of cardiac pacemaker; Z88.0 Allergy status to penicillin; Z88.2 Allergy status to sulfonamides; Z88.1 Allergy status to other antibiotic agents; Z88.8 Allergy status to other drugs, medicaments and biological substances; Z79.51 Long term (current) use of inhaled steroids; Z79.4 Long term (current) use of insulin; Z79.01 Long term (current) use of anticoagulants; Z82.49 Family history of ischemic heart disease and other diseases of the circulatory system
CPT/HCPCS: 36415; 80053; 81000; 85007; 85027; 93005

== ENCOUNTER → 2019-01-29 | Outpatient (CLI) | payer MEDICARE, BC ==
[~2019-01-29] MED LIST changes: +FLUT15.845 NS; -FLUT15.88 NS; -METO-387 PO; -METO-395 PO; +MTP100TCR PO; +MTP25TSR PO; -TRAM50TA2 PO; +TRM50T PO
--- NOTE | 2019-01-29 14:54 | Diagnostic Imaging Report ---
INDICATION: Right abdominal pain and urinary frequency. Supine and upright views of the abdomen are obtained. Overall bowel gas pattern is unremarkable. There is a moderate amount of stool in the right colon and at the level of the rectum. No pathologic abdominal calcification is seen. There is no evidence of free intraperitoneal gas or pneumatosis. There is diffuse lumbar spondylosis with previous left hip replacement. IMPRESSION: Mild to moderate amount of stool content in the colon. There is no evidence of obstruction or other acute abnormality. Dictated by: Dictated on workstation # [id number]
== END ==
LOC: RAD FS 14:33
PROVIDERS: ATTEND Nurse Practitioner Family
DX: R10.9 Unspecified abdominal pain (principal); R35.0 Frequency of micturition
CPT/HCPCS: 74019

== ENCOUNTER → 2019-12-18 | Outpatient (CLI) | payer MEDICARE, BC ==
[~2019-12-18] VITALS: Ht 152 cm; Wt 56.0 kg
[~2019-12-18] MED LIST changes: +REGADENOSON 0.4 MG/5 ML SYR (LEXISCAN) IV ONE
[2019-12-18] MEDS: CATHETER FLUSH 10 ML SYR IV PRN (11:18)
[2019-12-18 12:03] VITALS: BP 140/69
--- NOTE | 2019-12-22 14:38 | Cardiology Stress Test Report ---
Stress Test Report Type of NM Stress Test: Test Type: LEXISCAN 0.4MG/5ML Date of Procedure/Referring: Date of Procedure: Dec 18, 2019 PCP Kelton Carlos MD Admitting Physician [facility] Indications: chest pain Baseline Heart Rate: 72 Baseline Blood Pressure: Blood Pressure Systolic: 140 Blood Pressure Diastolic: 69 Baseline EKG: Baseline EKG: sinus rhythm Summary & Conclusion: Summary: The patient was brought to the stress lab after informed consent was taken. Stress test was performed according to the Lexiscan protocol. 0.4 mg of IV Lexiscan was given. Low-grade exercise was performed. Baseline EKG showed sinus rhythm at at 72 BPM, blood pressure 140/69 mmHg. Maximum heart rate 89 bpm and blood pressure 142/63 mmHg. Patient did not have any chest pain, arrhythmias or ST segment changes during the stress test. 10.88 mCi of Myoview were given for rest imaging and 31.2 mCi of Myoview given for stress imaging. Transient ischemic dilatation score 0.89, EF 79 percent. Normal wall motion. Normal myocardial perfusion imaging during rest and stress. Conclusion: Pharmacological stress test was negative for ischemia. Normal LV function with no wall motion abnormalities. Normal myocardial perfusion imaging during rest and stress. Kelton CARLOS MD Dec 22, 2019 14:38
== END ==
LOC: CARD 11:00
PROVIDERS: ATTEND Internal Medicine Interventional Cardiology
DX: I34.0 Nonrheumatic mitral (valve) insufficiency (principal); I51.7 Cardiomegaly; I65.23 Occlusion and stenosis of bilateral carotid arteries; E11.9 Type 2 diabetes mellitus without complications; I63.9 Cerebral infarction, unspecified; I25.10 Atherosclerotic heart disease of native coronary artery without angina pectoris; I45.89 Other specified conduction disorders; I48.0 Paroxysmal atrial fibrillation
CPT/HCPCS: 78452; 93017; 93306; A9502

== ENCOUNTER → 2019-12-24 | Outpatient (CLI) | payer MEDICARE, BC ==
[~2019-12-24] MED LIST changes: +CATHETER FLUSH 10 ML SYR IV PRN; +HOLD METFORMIN - RECEIVED CONTRAST 20 ML VIAL IV SCH; +IOHEXOL 350 MG/ML 100 ML (OMNIPAQUE 350) VIAL IV ONE; +NS 100 ML (IVPB) BAG IV ONE; -REGADENOSON 0.4 MG/5 ML SYR (LEXISCAN) IV ONE
[2019-12-24 09:42] LABS: CREATININE SERUM 0.91 MG/DL (0.60-1.30)
--- NOTE | 2019-12-24 11:22 | Diagnostic Imaging Report ---
PROCEDURE: CT neck soft tissue with contrast. TECHNIQUE: Multiple contiguous axial images were obtained through the neck after the administration of contrast. Auto Exposure Controls were utilized during the CT exam to meet ALARA standards for radiation dose reduction. INDICATION: Right neck mass. No prior studies are available for comparison. FINDINGS: The visualized intracranial structures are unremarkable. Posterior nasopharynx and oropharynx are unremarkable. The parapharyngeal fat planes are preserved. The epiglottis and larynx are unremarkable. There is a small approximately 8 mm low-density nodule right lobe of the thyroid. The submandibular and parotid glands are symmetric bilaterally. No cervical lymphadenopathy is detected. No mass is identified. There is no supraclavicular lymphadenopathy. Upper lung mo are clear of infiltrates. There is calcified granuloma in the right apex. IMPRESSION: Essentially unremarkable CT soft tissue neck study with contrast apart from small right lobe subcentimeter thyroid nodule. No cervical lymphadenopathy or mass is detected. Dictated by: Dictated on workstation # [id number]
== END ==
LOC: LAB FS 08:55
PROVIDERS: ATTEND Otolaryngology Otolaryngology/Facial Plastic Surgery
DX: R22.1 Localized swelling, mass and lump, neck (principal)
CPT/HCPCS: 36415; 70491; 82565; 84520

== ENCOUNTER 2020-10-26 05:41 | Outpatient (CLI) | payer MEDICARE, BC ==
[~2020-10-26] VITALS: Ht 152.4 cm; Wt 53.5 kg
[~2020-10-26 05:41] MED LIST changes: +ALPR.25T PO; -ALPR0.254 PO; +AMLO-250 PO; -AMLO5TAB9 PO; -CATHETER FLUSH 10 ML SYR IV PRN; -CLIN300C11 PO; +CLIN300C12 PO; -HOLD METFORMIN - RECEIVED CONTRAST 20 ML VIAL IV SCH; -IOHEXOL 350 MG/ML 100 ML (OMNIPAQUE 350) VIAL IV ONE; -ISOS30TA3 PO; +ISOS30TA82 PO; +LORA-53 PO; -LORA-714 PO; -NS 100 ML (IVPB) BAG IV ONE
== END 2020-10-26 15:55 | disposition home or self-care (01) ==
LOC: PREOP 05:41
PROVIDERS: ATTEND Surgery
DX: Z01.818 Encounter for other preprocedural examination (principal)

== ENCOUNTER → 2020-10-29 | Outpatient (CLI) | payer MEDICARE, BC ==
[~2020-10-29] MED LIST changes: +PANT40TA2 PO
== END ==
LOC: LAB FS 10:00
PROVIDERS: ATTEND Surgery
DX: Z01.812 Encounter for preprocedural laboratory examination (principal); K21.9 Gastro-esophageal reflux disease without esophagitis; Z20.822 Contact with and (suspected) exposure to COVID-19
CPT/HCPCS: 87635

== ENCOUNTER 2020-11-02 09:46 | Day surgery (SDC) | payer MEDICARE, BC ==
[~2020-11-02] VITALS: Ht 152 cm; Wt 53.0 kg
[~2020-11-02 09:46] MED LIST changes: -PANT40TA2 PO
[2020-11-02] MEDS ORDERED: LACTATED RINGERS 1,000 ML IV STA (09:48)
[2020-11-02] MEDS ORDERED: LACTATED RINGERS 1,000 ML IV ONE (09:50)
[2020-11-02] MEDS ORDERED: HURRICAINE EXT TUBE (BENZOCAINE) XX PRN (10:00)
[2020-11-02 10:15] VITALS: BP 142/81
--- NOTE | 2020-11-02 10:17 | Progress Note-Pre Operative ---
Pre-Operative Progress Note H&P Reviewed The H&P was reviewed, patient examined and no changes noted. Date Seen by Provider: Nov 02, 2020 Time Seen by Provider: 10:16 Date H&P Reviewed: Nov 02, 2020 Time H&P Reviewed: 10:16 Pre-Operative Diagnosis: gerd, chest pain GRECIA GALLARDO DO Nov 02, 2020 10:17
[2020-11-02] MEDS ORDERED: proPOfol 200 MG/20 ML (DIPRIVAN) VIAL IV ONE (10:21)
--- NOTE | 2020-11-02 10:47 | Progress Note-Post Operative ---
Post-Operative Progess Note Surgeon (s)/Facing Cutting Machine Operator (s) Surgeon GRECIA GALLARDO DO Facing Cutting Machine Operator: na Pre-Operative Diagnosis gerd, chest pain Post-Operative Diagnosis hiatal hernia, ge polyp Procedure & Operative Findings Date of Procedure 11/02/20 Procedure Performed/Findings egd c biopsy antrum and hot bx polypectomy ge junction Anesthesia Type per discovery guide Estimated Blood Loss Estimated blood loss (mL): none Specimens/Packing Specimens Removed antrum, ge polyp GRECIA GALLARDO DO Nov 02, 2020 10:47
[2020-11-02] MEDS ORDERED: PANT40TA2 PO (10:48)
--- NOTE | 2020-11-02 10:49 | Discharge Inst-Simple/Standard ---
Discharge Inst-Standard Discharge Medications New, Converted or Re-Newed RX: Transmitted to Pharmacy Patient Instructions/Follow Up Plan of Care/Instructions/FU: 2-3 weeks Sarah Activity as Tolerated: Yes Discharge Diet: Regular Diet GRECIA GALLARDO DO Nov 02, 2020 10:49
[2020-11-02 10:51] VITALS: BP 128/58
[2020-11-02 10:55] VITALS: BP 117/55
[2020-11-02 11:25] VITALS: BP 139/81
[2020-11-02 11:36] VITALS: BP 139/81
--- NOTE | 2020-11-02 11:42 | Anesthesia-General Post-Op ---
MAC Patient Condition Mental Status/LOC: Same as Preop Cardiovascular: Satisfactory Nausea/Vomiting: Absent Respiratory: Satisfactory Pain: Controlled Complications: Absent Post Op Complications Complications None Follow Up Care/Instructions Patient Instructions None needed. Anesthesiology Discharge Order Discharge Order Patient is doing well, no complaints, stable vital signs, no apparent adverse anesthesia problems. No complications reported per nursing. ALYSON COX CRNA Nov 02, 2020 11:42
--- NOTE | 2020-11-02 17:29 | OPERATIVE REPORT ---
DATE OF SERVICE: PREOPERATIVE DIAGNOSIS: Chest pain and gastroesophageal reflux disease. POSTOPERATIVE DIAGNOSES: Hiatal hernia and gastroesophageal polyp. SURGEON: Grecia Smith DO ANESTHESIA: Per [employer] PIECE CONSULTANT. PROCEDURE: Esophagogastroduodenoscopy with biopsy of the antrum and hot biopsy polypectomy of the gastroesophageal junction. INDICATIONS: The patient is an 89-year-old female with chest pain and GERD symptoms. She understands risks and benefits of procedure and wished to proceed with procedure. Consent was signed in the chart. DESCRIPTION OF PROCEDURE: The patient was taken to the endoscopy suite, placed in left lateral recumbent position. Timeout was performed. Scope was inserted in mouth, down the esophagus, stomach and into the duodenum without difficulty. There were no polyps, masses or ulcerations within the duodenum. Scope was slowly retracted back into the stomach where it was further insufflated. No polyps, masses or ulcerations within the stomach. Biopsy of the antrum was obtained. Scope was retroflexed noting a polyp of the GE junction and also hiatal hernia. Hot biopsy polypectomy was performed. Scope was then returned to its normal position, slowly withdrawn to distal esophagus, which had normal appearance. Scope was slowly retracted back to completely remove, noting no other pathology. The patient tolerated procedure well without any complications. She was taken to recovery room in stable condition. RECOMMENDATIONS: We will recommend hold the Xarelto due to the hot biopsy polypectomy for 3 days, then restart. The patient will follow up in the office to discuss biopsy results. The patient does not have allergy to Protonix, would start Protonix 40 mg daily. Further recommendations pending biopsy results. Job ID: [id number] DocumentID: [id number] Dictated Date: 11/02/2020 10:51:54 Financial Aid Date: 11/02/2020 17:28:59 Dictated By: GRECIA SMITH DO
--- OUTSIDE RECORDS SUMMARY | 2020-11-05 07:13 | XMS REPORT | Clinical Summary ---
Author Author [facility] Organization [facility] Address Unknown Phone Unavailable Care Team Providers Care Freight Representative Name Role Phone Self, Ramos SALCEDO PCP Allergies Comments Active Allergy Reactions Severity Noted Date Pioglitazone 04/14/2018 Diclofenac-Misoprostol 04/14/2018 Rosiglitazone 04/14/2018 Losartan 04/14/2018 Diltiazem 04/14/2018 Glyburide Micronized 04/14/2018 Fluocinonide 04/14/2018 Pirbuterol 04/14/2018 Metformin 04/14/2018 Meloxicam 04/14/2018 Multivitamin 04/14/2018 Naproxen 04/14/2018 Esomeprazole Magnesium 04/14/2018 Amlodipine 04/14/2018 Penicillins 04/14/2018 Famotidine 04/14/2018 Sulfa (Sulfonamide 04/14/2018 Antibiotics) Azithromycin 04/14/2018 Medications End Date Status Medication Sig Dispensed Refills Start Date Active atorvastatin (LIPITOR) 40 Take 40 mg by 0 03/03 0 MG tablet mouth 8 nightly. Active hydroCHLOROthiazide Take 25 mg by 0 (HYDRODIURIL) 25 MG mouth daily. 8 tablet Active BASAGLAR KWIKPEN U-100 Inject 20 0 01 INSULIN 100 unit/mL (3 Units under 8 mL) pen the skin nightly. Active HUMALOG KWIKPEN INSULIN Inject 5 0 100 unit/mL pen Units under 8 the skin 3 (three) times a day with meals. Active BD ULTRA-FINE AILEEN 32 0 gauge x 5/32" pen needles 8 Active isosorbide mononitrate Take 30 mg by 0 01 (IMDUR) 30 MG 24 hr mouth daily. 8 tablet Active rivaroxaban (XARELTO) 15 Take 1 tablet 30 tablet 0 mg tabletIndications: (15 mg total) 9 prevent thromboembolism by mouth in chronic atrial daily with fibrillation dinner. Active traMADol (ULTRAM) 50 mg Take 1 tablet 20 tablet 0 tabletIndications: pain (50 mg total) 9 by mouth every 8 (eight) hours as needed for pain. Max Daily Dose: 150 mg Active ALPRAZolam (XANAX) 0.5 MG Take 1 tablet 20 tablet 0 tabletIndications: (0.5 mg 9 anxiety total) by mouth nightly as needed for anxiety. Active Problems Problem Noted Date NSTEMI (non-ST elevated myocardial infarction) 04/15 Last Assessment & Plan: Formatting of this note might be differ ent from the original. 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 [place] thickened liquids Continue speech therapy Arterial ischemic stroke, ROWAN (anterior cerebral mena ry), right, acute 04/14/2018 Last Assessment & Plan: Formatting of this note might be differ ent from the original. Received tPA and started on aspirin 24 hours after tPA administration Neurology consulted earlier in hospi talization and has since signed off Rehab efforts: PT/OT/speech therapy Continue to monitor on telemetry Anticoagulation for Afib Family had questions about acute inp atient rehab vs SNF - answered questions to the best of my ability. Darrell guerline expressed their preference for SNF closer to home and daughter mention s [facility] in [place], [place] Discussed family's preference with [facility] Facial droop due to acute stroke 04/14/2018 Hemianopia, homonymous, left 04/14/2018 Bradycardia 04/14/2018 PAF (paroxysmal atrial fibrillation) 04/14/2018 Last Assessment & Plan: Formatting of this note might be differ ent from the original. [facility] records revi ewed: patient presented to ED on 02/04/2018 with palpitations. Found to b e in Afib with RVR with HR in 150's. Treated with amiodarone and metoprolol. She was not hospitalized and was discharged home (at her request) She had follow up with her cardiolog ist 02/18 - anticoagulation was discussed at that time but patient decl ined Discussed at length with patient, garry davenport and son She is agreeable to starting anticoa gulation Discussed warfarin vs DOAC. Discusse d the need for frequent INR monitoring with warfarin. Discussed the increased risk of bleeding with anticoagulation. [facility]ed [facility] reversal agent for DOAC compared to warfarin Patient and their family stated thei r preference for DOAC Care progression evaluated cost Eliq uis is $95.80 per month and Xarelto is $101.34 per month Patient stated this cost was okay wi th her and she stated her preference for once a day medication rather than B ID Will discontinue Eliquis and start X arelto Essential hypertension 04/14/2018 Last Assessment & Plan: Formatting of this note might be differ ent from the original. Continue HCTZ and Imdur Continue to monitor BP Mixed dyslipidemia 04/14/2018 Last Assessment & Plan: Formatting of this note might be differ ent from the original. Continue statin Type 2 diabetes mellitus, with long-term current use of insulin 04/14/2018 Last Assessment & Plan: Formatting of this note might be differ ent from the original. Continue to monitor accuchecks, sliding scale insulin as needed Hypoglycemia protocol Status post administration of tPA (rtPA) in a [facility] facility within the 04/14/2018 last 24 hours prior to admission to [facility] Family History Medical History Relation Name Comments Heart disease Mother Stroke Neg Hx Relation Name Status Comments Father Mother (Age 70s) Social History Date Tobacco Use Types Packs/Day Years Used Never Smoker Smokeless Tobacco: Never Used Comments Alcohol Use Standard Drinks/Week No 0 (1 standard drink = 0.6 o z pure alcohol) Sex Assigned at Date Recorded Not on file Last Filed Vital Signs Reading Time Taken Comments Vital Sign 131/58 04/18/2018 11:41 AM [employer] Blood Pressure 69 04/18/2018 11:41 AM [employer] Pulse 36.5 C (97.7 F) 04/18/2018 11:41 AM [employer] Temperature 18 04/18/2018 11:41 AM [employer] Respiratory Rate 98% 04/18/2018 11:41 AM [employer] Oxygen Saturation - - Inhaled Oxygen Concentration 58.6 kg (129 lb 3.2 oz) 04/18/2018 3:01 AM [employer] Weight 152.4 cm (5') 04/14/2018 3:00 PM [employer] Height 25.23 04/14/2018 3:00 PM [employer] Body Mass Index Plan of Treatment Health Maintenance Due Date Last Done Comments Advance Directive has 1931 been filed Diabetes Mellitus 1931 Ophthalmology Exam Diabetes Mellitus Urine 1931 Microalbumin Medicare Annual Wellness 1931 Td/Tdap# 1931 Diabetes Mellitus Foot 1941 Exam COVID-19 Vaccine (1) 1943 Zoster Vaccine# (1 of 2) 1981 Advance Directive 1996 Conversation Depression Screening 1996 PHQ-9 # Osteoporosis Screening 1996 Patient Needs Advance 1996 Directive Diabetes Mellitus 10/13/2018 04/15/2018, Hemoglobin A1C 02/26/2018 Lipid Screening 04/15/2019 04/15/2018, 04/15/2018, 11/27/2017 Fall Risk Assessment # 04/18/2019 04/18/2018 Influenza Vaccine (#1) 2020 12/28/2016 Pneumococcal Vaccine: 65+ Completed 05/30/2017, Years 12/29/2014 Results Not on filefrom Last 3 Months Insurance Type Payer Benefit Subscriber ID Effective Phone Address Plan / Dates Group Medicare MEDICARE MEDICARE [id number] 1996-P [place] PART B [facility] [id number] [address] [place] [address] Present Anum Rogers Personal/F Self 1930 [address] [id number] Anum Rogers Personal/F Self 1930 [address] [id number] Advance Directives For more information, please contact: [phone] 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
== END 2020-11-02 11:48 | disposition home or self-care (01) ==
LOC: ENDO 09:46
PROVIDERS: ATTEND Surgery
DX: K21.9 Gastro-esophageal reflux disease without esophagitis (principal); K31.7 Polyp of stomach and duodenum; K31.89 Other diseases of stomach and duodenum; K44.9 Diaphragmatic hernia without obstruction or gangrene; I10 Essential (primary) hypertension; I48.91 Unspecified atrial fibrillation; E11.9 Type 2 diabetes mellitus without complications; M19.90 Unspecified osteoarthritis, unspecified site; F32.9 Major depressive disorder, single episode, unspecified; F41.9 Anxiety disorder, unspecified; Z95.0 Presence of cardiac pacemaker; Z79.899 Other long term (current) drug therapy; Z79.4 Long term (current) use of insulin; Z90.49 Acquired absence of other specified parts of digestive tract; Z86.73 Personal history of transient ischemic attack (TIA), and cerebral infarction without residual deficits; Z80.0 Family history of malignant neoplasm of digestive organs

== ENCOUNTER 2020-12-16 15:41 | Inpatient (IN) | payer MEDICARE, BC ==
[~2020-12-16] VITALS: Ht 152 cm; Wt 72.7 kg
[~2020-12-16 15:41] MED LIST changes: +PANT40TA2 PO
--- NOTE | 2020-12-16 16:04 | ED Lower Extremity ---
General Chief Complaint: Lower Extremity Stated Complaint: FALL Nursing Triage Note: PT REPORTS SHE HAS BEEN FALLING A LOT LATELY AND SHE FELL THIS AM AND AGAIN THIS AFTERNOON. SHE C/O OF LEFT HIP PAIN. SHE STATED TO THE DR THAT SHE WANTS TO GO TO ASSISTED LIVING AND WANTS US TO TALK TO HER KIDS ABOUT THIS. Source: patient, EMS Exam Limitations: no limitations History of Present Illness Date Seen by Provider: Dec 16, 2020 Time Seen by Provider: 15:59 Initial Comments 89-year-old female presents via EMS after second fall at home today. Patient lives alone at home with no home health care or assistance. She uses a walker to ambulate, but states she fell in her room making her bed today. Fell earlier this morning and was seen by EMS and refused transport at that time. This afternoon she fell again and says that she hurt her hip. Previous history of left hip replacement. Patient states she is having trouble doing basic activities of daily living and is interested in assisted living arrangements. Allergies and Home Medications Allergies Coded Allergies: Penicillins (Unverified Allergy, Unknown, rash, 07/16/18) Sulfa (Sulfonamide Antibiotics) (Unverified Allergy, Unknown, rash, 07/16/18) amlodipine (Unverified Allergy, Unknown, feet and leg swelling, 07/16/18) azithromycin (Unverified Allergy, Unknown, diarrhea, 07/16/18) diclofenac (Unverified Allergy, Unknown, colon cramp, 07/16/18) diltiazem (Unverified Allergy, Unknown, headache, jaw ache, swollen gums, 07/16/18) esomeprazole (Unverified Allergy, Unknown, gas, 07/16/18) famotidine (Unverified Allergy, Unknown, 04/19/18) fluocinonide (Unverified Allergy, Unknown, sore mouth, 07/16/18) glyburide (Unverified Allergy, Unknown, cough, hoarseness, hair loss, 07/16/18) lisinopril (Verified Allergy, Unknown, feet cramp, 07/16/18) losartan (Unverified Allergy, Unknown, cough, 07/16/18) meloxicam (Unverified Allergy, Unknown, bloody stool, 07/16/18) metaxalone (Verified Allergy, Unknown, nervousness, 07/16/18) metformin (Unverified Allergy, Unknown, diarrhea, 07/16/18) misoprostol (Unverified Allergy, Unknown, colon cramp, 07/16/18) naproxen (Unverified Allergy, Unknown, 04/19/18) pioglitazone (Unverified Allergy, Unknown, stiffness, 07/16/18) pirbuterol (Unverified Allergy, Unknown, face itching, 07/16/18) rosiglitazone (Unverified Allergy, Unknown, stiffness, 07/16/18) Uncoded Allergies: multivitamin (Allergy, Unknown, rash, 07/16/18) Patient Home Medication List Home Medication List Reviewed: Yes ALPRAZolam (Xanax Tablet) 0.25 Mg Tablet, 0.25-0.5 MG PO BID PRN for ANXIETY, (Reported) Entered as Reported by: REGINA RUTHERFORD on 10/10/18 09 Amlodipine Besylate (Amlodipine Besylate) 5 Mg Tablet, 5 MG PO DAILY, (Reported) Entered as Reported by: WILLIAM WOODRUFF on 07/16/18 0809 Atorvastatin Calcium (Atorvastatin Calcium) 40 Mg Tablet, 40 MG PO HS, (Reported) Entered as Reported by: MARCUS BARRIENTOS on 04/19/18 1420 Bacillus Coagulans (Probiotic) 1 Each Tab.chew, 1 EACH PO DAILY, (Reported) Entered as Reported by: REGINA RUTHERFORD on 10/10/18 09 Calcium Carbonate/Vitamin D3 (Calcium + Vitamin D Tablet) 1 Each Tablet, 1 EACH PO, (Reported) Entered as Reported by: REGINA RUTHERFORD on 10/10/18 09 Cholecalciferol (Vitamin D3) (D3-2000) 2,000 Unit Capsule, 2,000 UNIT PO DAILY, (Reported) Entered as Reported by: REGINA RUTHERFORD on 10/10/18911 Fluticasone Propionate (Fluticasone Propionate) 15.8 Ml [place].susp, 15.8 ML NS DAILY, (Reported) Entered as Reported by: REGINA RUTHERFORD on 10/10/18 09 Hydrochlorothiazide (Hydrochlorothiazide) 25 Mg Tablet, 25 MG PO DAILY, (Reported) Entered as Reported by: MARCUS BARRIENTOS on 04/19/18 1420 Insulin Glargine,Hum.rec.anlog (Basaglar Kwikpen U-100) 100 Unit/1 Ml Insuln.pen, 16 UNITS SC HS, (Reported) Entered as Reported by: MARCUS BARRIENTOS on 04/19/18 1420 Insulin Lispro (Humalog Kwikpen) 100 Unit/1 Ml Insuln.pen, 5 UNITS SC TIDAC, (Reported) Entered as Reported by: MARCUS BARRIENTOS on 04/19/18 1420 Loratadine (Loratadine) 10 Mg Tab.rapdis, 10 MG PO DAILY, (Reported) Entered as Reported by: REGINA RUTHERFORD on 10/10/18 0912 Metoprolol Succinate (Metoprolol Succinate) 25 Mg Tab.er.24h, 25 MG PO DAILY, (Reported) Entered as Reported by: REGINA RUTHERFORD on 10/10/18 09 Naproxen Sodium (Aleve) 220 Mg Tablet, 220 MG PO TID PRN for PAIN-MILD TO MODERATE, (Reported) Entered as Reported by: WILLIAM WOODRUFF on 07/16/18 0809 Pantoprazole Sodium (Protonix) 40 Mg Tablet.dr, 40 MG PO DAILY Prescribed by: GRECIA GALLARDO on 11/02/20 1048 Rivaroxaban (Xarelto Tablet) 15 Mg Tablet, 15 MG PO DAILY@1700 Prescribed by: OSORIO DAWSON on 04/23/18 0902 Vit A/C/E/Zinc/Selenium/Copper (Vision Formula Tablet) 1 Each Tablet, 1 EACH PO DAILY, (Reported) Entered as Reported by: REGINA RUTHERFORD on 10/10/18 09 Review of Systems Constitutional: see HPI; No chills, No fever, No malaise; weakness EENTM: no symptoms reported Respiratory: No cough, No short of breath Cardiovascular: No chest pain, No edema, No palpitations, No syncope Gastrointestinal: No abdominal pain, No nausea, No vomiting Genitourinary: no symptoms reported Musculoskeletal: No back pain; joint pain (left hip pain); No neck pain Skin: No change in color, No other Psychiatric/Neurological: Denies Headache, Denies Numbness, Denies Paresthesia; Weakness (generalized, not new) Past Dzgeqfd-Nhpwye-Poxtln Hx Patient Social History Tobacco Use?: No Use of E-Cig and/or Vaping dev: No Substance use?: No Alcohol Use?: No Pt feels they are or have been: Yes Immunizations Up To Date First/Initial COVID19 Vaccinat: MAY 2020 Second COVID19 Vaccination Lai: MAY 2020 COVID19 Vaccine Machine Molder: KAREN Seasonal Allergies Seasonal Allergies: No Past Medical History Surgeries: Yes (D & C, pacemaker 10/18, RIGHT HIP ) Gallbladder, Joint Replacement, Pacemaker, Tubal Ligation Respiratory: No Currently Using CPAP: No Currently Using BIPAP: No Cardiac: Yes (HERE TODAY FOR PACEMAKER, SSS) Atrial Fibrillation, Hypertension Neurological: Yes Stroke Female Reproductive Disorders: Denies Sexually Transmitted Disease: No HIV/AIDS: No Genitourinary: No Gastrointestinal: Yes Gastroesophageal Reflux, Gall Bladder Disease Musculoskeletal: Yes Arthritis Endocrine: Yes (dyslipidemia) Diabetes, Insulin dep HEENT: Yes Macular Degeneration Hearing Impairment: Hard of Hearing, Hearing Aide Right, Hearing Aide Left Cancer: No Psychosocial: Yes (short term memory loss) Anxiety, Depression Integumentary: Yes (bruises easily) Blood Disorders: No Adverse Reaction/Blood Tranf: No Family Medical History Cardiovascular disease G8 BROTHER Diabetes mellitus SON Physical Exam Vital Signs Vital Signs - First Documented 12/16/20 15:45 Temp 36.8 Pulse 85 Resp 18 B/P (MAP) 120/63 (82) Pulse Ox 95 O2 Delivery Room Air Capillary Refill : Less Than 3 Seconds Height, Weight, BMI Height: 5'0" Weight: 120lbs. 0.0oz. [id number]; 23.00 BMI Method:Stated General Appearance: WD/WN, no apparent distress HEENT: PERRL/EOMI, normal ENT inspection Neck: non-tender, full range of motion, supple Cardiovascular: regular rate, rhythm, no edema, no JVD Respiratory: chest non-tender, lungs clear, normal breath sounds, no respiratory distress, no accessory muscle use Gastrointestinal: non tender, soft Back: normal inspection, no CVA tenderness, no vertebral tenderness Hips: right hip non-tender, right hip normal inspection, right hip normal range of motion, right hip no evidence of injury; left hip bone tenderness, left hip limited range of motion, left hip pain, left hip soft tissue tenderness Legs: bilateral leg non-tender, bilateral leg normal inspection, bilateral leg normal range of motion, bilateral leg no evidence of injury Knees: bilateral knee non-tender, bilateral knee normal inspection, bilateral knee normal range of motion, bilateral knee no evidence of injury Ankles: bilateral ankle non-tender, bilateral ankle normal inspection, bilateral ankle normal range of motion, bilateral ankle no evidence of injury Feet: bilateral foot non-tender, bilateral foot normal inspection, bilateral foot normal range of motion, bilateral foot no evidence of injury Neurologic/Tendon: normal sensation, normal motor functions Neurologic/Psychiatric: no motor/sensory deficits, alert, normal mood/affect, oriented x 3 Skin: normal color, warm/dry Progress/Results/Core Measures Results/Orders Lab Results Laboratory Tests Test 12/16/20 15:47 12/16/20 16:45 12/16/20 17:38 Range/Units White Blood Count 7.5 4.3-11.0 10^3/uL Red Blood Count 3.56 L 3.80-5.11 10^6/uL Hemoglobin 10.3 L 11.5-16.0 g/dL Hematocrit 32 L 35-52 % Mean Corpuscular Volume 90 80-99 fL Mean Corpuscular Hemoglobin 29 25-34 pg Mean Corpuscular Hemoglobin Concent 32 32-36 g/dL Red Cell Distribution Width 13.2 10.0-14.5 % Platelet Count 291 130-400 10^3/uL Mean Platelet Volume 9.4 9.0-12.2 fL Immature Granulocyte % (Auto) 1 % Neutrophils (%) (Auto) 83 H 42-75 % Lymphocytes (%) (Auto) 8 L 12-44 % Monocytes (%) (Auto) 8 0-12 % Eosinophils (%) (Auto) 1 0-10 % Basophils (%) (Auto) 0 0-10 % Neutrophils # (Auto) 6.2 1.8-7.8 X 10^3 Lymphocytes # (Auto) 0.6 L 1.0-4.0 X 10^3 Monocytes # (Auto) 0.6 0.0-1.0 X 10^3 Eosinophils # (Auto) 0.1 0.0-0.3 10^3/uL Basophils # (Auto) 0.0 0.0-0.1 10^3/uL Immature Granulocyte # (Auto) 0.1 0.0-0.1 10^3/uL Neutrophils % (Manual) 75 % Lymphocytes % (Manual) 8 % Monocytes % (Manual) 6 % Eosinophils % (Manual) 0 % Basophils % (Manual) 1 % Band Neutrophils 10 % Hypochromasia 1+ Sodium Level 128 L 135-145 MMOL/L Potassium Level 3.6 3.6-5.0 MMOL/L Chloride Level 92 L 98-107 MMOL/L Carbon Dioxide Level 28 21-32 MMOL/L Anion Gap 8 5-14 MMOL/L Blood Urea Nitrogen 23 H 7-18 MG/DL Creatinine 0.90 0.60-1.30 MG/DL Estimat Glomerular Filtration Rate 59 BUN/Creatinine Ratio 26 Glucose Level 243 H 70-105 MG/DL Lactic Acid Level 1.31 0.50-2.00 MMOL/L Calcium Level 8.7 8.5-10.1 MG/DL Corrected Calcium 8.9 8.5-10.1 MG/DL Total Bilirubin 0.4 0.1-1.0 MG/DL Aspartate Amino Transf (AST/SGOT) 33 5-34 U/L Alanine Aminotransferase (ALT/SGPT) 43 0-55 U/L Alkaline Phosphatase 106 40-136 U/L Total Protein 5.7 L 6.4-8.2 GM/DL Albumin 3.7 3.2-4.5 GM/DL Urine Color YELLOW Urine Clarity CLEAR Urine pH 6.5 5-9 Urine Specific [place] 1.015 L 1.016-1.022 Urine Protein NEGATIVE NEGATIVE Urine Glucose (UA) 1+ H NEGATIVE Urine Ketones NEGATIVE NEGATIVE Urine Nitrite NEGATIVE NEGATIVE Urine Bilirubin NEGATIVE NEGATIVE Urine Urobilinogen 0.2 < = 1.0 MG/DL Urine Leukocyte Esterase NEGATIVE NEGATIVE Urine RBC (Auto) NEGATIVE NEGATIVE Urine RBC 0-2 /HPF Urine WBC RARE /HPF Urine Squamous Epithelial Cells RARE /HPF Urine Crystals NONE /LPF Urine Bacteria NEGATIVE /HPF Urine Casts NONE /LPF Urine Mucus NEGATIVE /LPF Urine Culture Indicated NO My Orders Orders - CARISSAVENSTJOSY DUNNEN L DO Pelvis With Left Hip 2-3 View (12/16/20 15:58) Cbc With Automated Diff (12/16/20 15:58) Comprehensive Metabolic Panel (12/16/20 15:58) Urinalysis (12/16/20 15:58) Lactic Acid Analyzer (12/16/20 15:58) Manual Differential (12/16/20 15:47) Ns Iv 1000 Ml (Sodium Chloride 0.9%) (12/16/20 17:45) Acetaminophen Tablet (Tylenol Tablet) (12/16/20 18:45) Medications Given in ED Current Medications Medications Dose Ordered Sig/Carlos Route Start Time Stop Time Status Last Admin Dose Admin Acetaminophen 1,000 mg ONCE ONCE PO 12/16/20 18:45 12/16/20 18:46 DC 12/16/20 18:37 1,000 MG Vital Signs/I&O 12/16/20 12/16/20 15:45 19:08 Temp 36.8 Pulse 85 63 Resp 18 16 B/P (MAP) 120/63 (82) 131/57 Pulse Ox 95 97 O2 Delivery Room Air Room Air Blood Pressure Mean: 82 Diagnostic Imaging Diagonstic Imaging: Xray Plain Films/CT/US/NM/MRI: chest, pelvis Comments Date of Exam:12/16/20 PELVIS WITH LEFT HIP 2-3 VIEW EXAMINATION: Pelvis, single view. Left hip, two additional views. COMPARISON: None. HISTORY: 89-year-old female, frequent falls. Left hip pain. FINDINGS: The pubic symphysis and sacroiliac joints are normally aligned. 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 The hardware is intact. There is no periprosthetic lucency. There is no identified acute fracture. The right hip is not obviously dislocated. There are degenerative changes of the lumbar spine. IMPRESSION: No identified acute bony abnormality of the pelvis or left hip. Dictated on workstation # [id number] Dict: 12/16/20 1640 Trans: 12/16/20 1646 [facility] [id number] Interpreted by: MICHAEL SARGENT MD Electronically signed by: Departure Communication (Admissions) Time/Spoke to Admitting Phy: 18:[address] Rodriguez regarding pt need for LTC placement. Lives alone and unable to get around even w using a walker. Too weak to get up to use comode in ER room without assistance. Family aware and on their way to see her tomorrow to discuss arrangements for care. Impression Primary Impression: Frequent falls Additional Impressions: Weakness Hyponatremia Disposition: 30 STILL A PATIENT Condition: Stable Admissions Decision to Admit Reason: Admit from ER (General) Decision to Admit/Date: Dec 16, 2020 Time/Decision to Admit Time: 18:00 Departure-Patient Inst. Referrals: [facility] (PCP) Primary Care Physician MARCUS CANO APRN (Family) Primary Care Physician Add. Discharge Instructions: All discharge instructions reviewed with patient and/or family. Voiced understanding. PARIS OCONNOR DO Dec 16, 2020 16:04
[2020-12-16 16:10] LABS: BASOPHILS % (AUTO) 0 % (0-10); EOSINOPHILS % (AUTO) 1 % (0-10); HEMATOCRIT 32 % (35-52); HEMOGLOBIN 10.3 g/dL (11.5-16.0); LYMPHOCYTES % (AUTO) 8 % (12-44); MEAN CORPUSCULAR HEMOGLOBIN 29 pg (25-34); MEAN CORPUSCULAR HGB CONC 32 g/dL (32-36); MEAN CORPUSCULAR VOLUME 90 fL (80-99); MEAN PLATELET VOLUME 9.4 fL (9.0-12.2); MONOCYTES % (AUTO) 8 % (0-12); NEUTROPHILS % (AUTO) 83 % (42-75); PLATELET COUNT 291 10^3/uL (130-400); WHITE BLOOD COUNT 7.5 10^3/uL (4.3-11.0)
[2020-12-16 16:11] LABS: EOSINOPHILS # (AUTO) 0.1 10^3/uL (0.0-0.3); LYMPHOCYTES # (AUTO) 0.6 X 10^3 (1.0-4.0); MONOCYTES # (AUTO) 0.6 X 10^3 (0.0-1.0); NEUTROPHILS # (AUTO) 6.2 X 10^3 (1.8-7.8)
--- NOTE | 2020-12-16 16:47 | Diagnostic Imaging Report ---
EXAMINATION: Pelvis, single view. Left hip, two additional views. COMPARISON: None. HISTORY: 89-year-old female, frequent falls. Left hip pain. FINDINGS: The pubic symphysis and sacroiliac joints are normally aligned. 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 The hardware is intact. There is no periprosthetic lucency. There is no identified acute fracture. The right hip is not obviously dislocated. There are degenerative changes of the lumbar spine. IMPRESSION: No identified acute bony abnormality of the pelvis or left hip. Dictated by: Dictated on workstation # [id number]
[2020-12-16 17:26] LABS: BILIRUBIN,TOTAL 0.4 MG/DL (0.1-1.0); CALCIUM 8.7 MG/DL (8.5-10.1); CREATININE SERUM 0.9 MG/DL (0.60-1.30); POTASSIUM 3.6 MMOL/L (3.6-5.0); TOTAL PROTEIN 5.7 GM/DL (6.4-8.2)
[2020-12-16 17:27] LABS: ALBUMIN 3.7 GM/DL (3.2-4.5)
[2020-12-16] MEDS ORDERED: NS IV 1000 ML 1,000 ML IV SCH (17:45)
[2020-12-16 18:04] LABS: BILIRUBIN,URINE NEGATIVE (NEGATIVE); CLARITY,URINE CLEAR; COLOR,URINE YELLOW; GLUCOSE, URINE (UA) 1+ (NEGATIVE); KETONES,URINE NEGATIVE (NEGATIVE); LEUKOCYTE ESTERASE ,URINE NEGATIVE (NEGATIVE); NITRITE,URINE NEGATIVE (NEGATIVE); PH,URINE 6.5 (5-9); PROTEIN,URINE NEGATIVE (NEGATIVE)
[2020-12-16 18:11] LABS: BACTERIA,URINE NEGATIVE /HPF; RBC,URINE 0-2 /HPF; WBC,URINE RARE /HPF
[2020-12-16 18:12] LABS: SQUAMOUS EPITHELIAL CELL,UR RARE /HPF
[2020-12-16 18:22] LABS: BAND NEUTROPHILS 10 %; BASOPHILS % (MANUAL) 1 %; EOSINOPHILS % (MANUAL) 0 %; HYPOCHROMASIA 1+; LYMPHOCYTES % (MANUAL) 8 %; MONOCYTES % (MANUAL) 6 %; NEUTROPHILS % (MANUAL) 75 %
[2020-12-16] MEDS ORDERED: ACETAMINOPHEN 500 MG TAB (TYLENOL) PO ONE (18:45)
[2020-12-16] MEDS ORDERED: NS IV 1000 ML 1,000 ML ONE (20:46)
[2020-12-16 20:58] VITALS: BP 98/54
[2020-12-16] MEDS: NS IV 1000 ML 1,000 ML IV SCH (21:50)
[2020-12-17] VITALS (7 sets, daily range): BP systolic 118–145; BP diastolic 56–66
[2020-12-17 04:58] LABS: BASOPHILS % (AUTO) 0 % (0-10); EOSINOPHILS # (AUTO) 0.1 10^3/uL (0.0-0.3); EOSINOPHILS % (AUTO) 1 % (0-10); HEMATOCRIT 28 % (35-52); HEMOGLOBIN 9.3 g/dL (11.5-16.0); LYMPHOCYTES # (AUTO) 0.6 10^3/uL (1.0-4.0); LYMPHOCYTES % (AUTO) 9 % (12-44); MEAN CORPUSCULAR HEMOGLOBIN 29 pg (25-34); MEAN CORPUSCULAR HGB CONC 33 g/dL (32-36); MEAN CORPUSCULAR VOLUME 89 fL (80-99); MEAN PLATELET VOLUME 8.8 fL (9.0-12.2); MONOCYTES # (AUTO) 0.8 10^3/uL (0.0-1.0); MONOCYTES % (AUTO) 11 % (0-12); NEUTROPHILS # (AUTO) 5.6 10^3/uL (1.8-7.8); NEUTROPHILS % (AUTO) 78 % (42-75); PLATELET COUNT 245 10^3/uL (130-400); WHITE BLOOD COUNT 7.2 10^3/uL (4.3-11.0)
[2020-12-17 05:04] LABS: POTASSIUM 3.2 MMOL/L (3.6-5.0)
[2020-12-17 05:09] LABS: CREATININE SERUM 0.63 MG/DL (0.60-1.30)
[2020-12-17] MEDS: NS IV 1000 ML 1,000 ML IV SCH ×2 (06:20→16:24)
[2020-12-17] MEDS ORDERED: KCL 20 MEQ TAB (K-DUR) PO ONE (08:45)
--- NOTE | 2020-12-17 11:22 | Physical Therapy Evaluation ---
PT Evaluation-General Medical Diagnosis Admission Date Dec 16, 2020 at 20:00 Medical Diagnosis: fall Onset Date: Dec 16, 2020 Therapy Diagnosis Therapy Diagnosis: debility/weakness Height/Weight Height (Feet): 5 Height (Inches): 0 Weight (Pounds): 120 Weight (Ounces): 0.0 Precautions Precautions/Isolations: Fall Prevention, Standard Precautions Referral Physician: Michael Reason for Referral: Evaluation/Treatment Medical History Pertinent Medical History: Atrial Fib, CVA, DM, HTN, Macular Degenertion Additional Medical History right THR Current History EMS secondary to fall at home Reviewed History: Yes Social History Home: Single Level Current Living Status: Alone Prior Prior Level of Function SCALE: Activities may be completed with or without assistive devices. 9-Kmmrfhyjpp-mgxpqsw completes the activity by him/herself with no assistance from a helper. 5-Set-up or Clean-up Assistance-helper sets up or cleans up; patient completes activity. [place] assists only prior to or following the activity. 4-Supervision or Touching Assistance-helper provides verbal cues and/or touching/steadying and/or contact guard assistance as patient completes activity. Assistance may be provided throughout the activity or intermittently. 3-Partial/Moderate Assistance-helper does LESS THAN HALF the effort. [place] lifts, holds or supports trunk or limbs, but provides less than half the effort. 2-Substantial/Maximal Assistance-helper does MORE THAN HALF the effort. [place] lifts or holds trunk or limbs and provides more than half the effort. 0-Nrvnrsyxz-rhfyhm does ALL the effort. Patient does none of the effort to complete the activity. Or, the assistance of 2 or more helpers is required for the patient to complete the activity. If activity was not attempted, code reason: 7-Patient Refused. 9-Not Applicable-not attempted and the patient did not perform the activity before the current illness, exacerbation or injury. 10-Not Attempted due to Environmental Limitations-(lack of equipment, weather restraints, etc.). 88-Not Attempted due to Medical Conditions or Safety Concerns. Bed Mobility: 6 Transfers (B,C,W/C): 6 Gait: 6 Indoor Mobility (Ambulation): Independent Prior Devices Use: Walker PT Evaluation-Current Subjective Patient reluctantly agrees to PT. She states, "I don't think I can do anything. I'm scared. Have my kids called." Objective Patient Orientation: Person, Time, Situation Attachments: Mirza Catheter, IV ROM/Strength ROM Lower Extremities bilateral LE WFL Strength Lower Extremities 3+/5 grossly bilateral LE Integumentary/Posture Integumentary refer to nursing notes Bowel Incontinence: No Bladder Incontinence: Mirza Cath Posture WFL Neuromuscular (Tone, Coordination, Reflexes) grossly intact Sensory Vision: Wears Glasses Hearing: Impaired Transfers Roll Left to Right (QC): 4 Sit to Lying (QC): 4 Lying to Sitting/Side of Bed(Q: 4 Sit to Stand (QC): 4 Chair/Zsx-in-Spknd Xfer(QC): 4 SBA with all mobility with encouragement for patient to perform Gait Does the Patient Walk?: Yes Mode of Locomotion: Walk Anticipated Mode of Locomotion: Walk Walk 10 feet (QC): 4 Walk 50 ft with 2 Turns(QC): 4 Walk 150 ft (QC): 4 Distance: 275' Gait Assistive Device: FWW Comments/Gait Description NBOS/functional gait sequence with no deviation Balance Sitting Static: Normal Sitting Dynamic: Normal Standing Static: Normal Standing Dynamic: Normal Assessment/Needs 89 y.o. female, will be seen short term by skilled PT to address functional strength and mobility to improve current LOF. Rehab Potential: Fair PT Funeral Director/Embalmer/Owner Goals Funeral Director/Embalmer/Owner Goals PT Alf Goals Time Frame: Jan 01, 2021 Roll Left & Right (QC): 6 Sit to Lying (QC): 6 Lying-Sitting on Side/Bed(QC): 6 Sit to Stand (QC): 5 Chair/Cks-rp-Alizj Xfer(QC): 5 Toilet Transfer (QC): 5 Walk 10 feet (QC): 5 Walk 50ft with 2 Turns (QC): 5 Walk 150 ft (QC): 5 PT Plan Problem List Problem List: Activity Tolerance, Safety, Gait, Transfer, Bed Mobility Treatment/Plan Treatment Plan: Continue Plan of Care Treatment Plan: Bed Mobility, Education, Functional Activity Regan, Functional Strength, Gait, Safety, Therapeutic Exercise, Transfers Treatment Duration: Jan 01, 2021 Frequency: 6 times per week Estimated Hrs Per Day: .25 hour per day Time/GCodes Time In: 1040 Time Out: 1050 Total Billed Treatment Time: 10 Total Billed Treatment 1 visit EVMod 10 min EDWIN AHUMADA PT Dec 17, 2020 11:22
--- NOTE | 2020-12-17 12:12 | Occupational Therapy Eval ---
OT Evaluation-General/PLF Medical Diagnosis Admission Date Dec 16, 2020 at 20:00 Medical Diagnosis: fall Onset Date: Dec 16, 2020 Therapy Diagnosis Therapy Diagnosis: weakness Height/Weight Height (Feet): 5 Height (Inches): 0 Weight (Pounds): 120 Weight (Ounces): 0.0 Precautions Precautions/Isolations: Fall Prevention, Standard Precautions Referral Physician: Michael Referral Reason: Evaluation/Treatment Medical History Pertinent Medical History: Atrial Fib, CVA, DM, HTN, Macular Degenertion Additional Medical History pacemaker, GERD, Arthritis, bilateral hearing aides, anxiety/depression Current History ED due to multiple falls at home. Social History Home: Single Level Current Living Status: Alone ADL-Prior Level of Function SCALE: Activities may be completed with or without assistive devices. 9-Vbqltzmtme-yumzqgg completes the activity by him/herself with no assistance from a helper. 5-Set-up or Clean-up Assistance-helper sets up or cleans up; patient completes activity. [place] assists only prior to or following the activity. 4-Supervision or Touching Assistance-helper provides verbal cues and/or touching/steadying and/or contact guard assistance as patient completes activity. Assistance may be provided throughout the activity or intermittently. 3-Partial/Moderate Assistance-helper does LESS THAN HALF the effort. [place] lifts, holds or supports trunk or limbs, but provides less than half the effort. 2-Substantial/Maximal Assistance-helper does MORE THAN HALF the effort. [place] lifts or holds trunk or limbs and provides more than half the effort. 5-Fraagqrlo-wchjzf does ALL the effort. Patient does none of the effort to complete the activity. Or, the assistance of 2 or more helpers is required for the patient to complete the activity. If activity was not attempted, code reason: 7-Patient Refused. 9-Not Applicable-not attempted and the patient did not perform the activity before the current illness, exacerbation or injury. 10-Not Attempted due to Environmental Limitations-(lack of equipment, weather restraints, etc.). 88-Not Attempted due to Medical Conditions or Safety Concerns. ADL PLOF Comments Pt indicates she has scheduled assistance x2/week to assist her with bathing. Pt able to heat up meals in the microwave. Reports IND with FWW, IND with dressing and toileting. Self Care: Needed Some Help Functional Cognition: Independent DME/Equipment: Bath Chair, Tub/Shower DME/Equipment Comments FWW OT Current Status Subjective Pt up in recliner, states need to call daughter and inform her to bring hearing aides. Pt indicates she would like to go to assisted living facility, if she were to return home she would probably just . Mental Status/Objective Patient Orientation: Person, Place, Situation Attachments: Mirza Catheter, IV Current Glasses/Contacts: Yes Hearing Aids: Yes Dentures/Partials: Yes Hand Dominance: Right Upper Extremity ROM WFL with ADLs Upper Extremity Strength grossly 3+/5 BUEs ADL-Treatment Oral Hygiene (QC): 5 (set up, pt able to use oral swab to clean her mouth.) Toileting Hygiene (QC): 1 (catheter) Other Treatments Pt in recliner, OT assists pt with dialing her daughter's phone number so pt can request dentures. Pt then provided information about PLOF and home set up. Pt completed oral care with set up assistance using oral swab, dentures were not available at time of tx. Pt washed face with SBA, dropped washcloth in her lap and required assistance to locate. She then brushed her hair with set up assistance. Pt indicates she would like to go to assisted living facility, if she were to return home she would probably just . Pt wants to continue living her life so she can celebrate her 89th birthday in May. Pt declines need to toilet at this time, and declines out of chair activity as her children should be up soon. Post tx, pt up in recliner, call light in reach and all needs met. Education OT Patient Education: Correct positioning, Energy conservation, Exercise program, Modified ADL techniques, Progress toward Goal/Update tx plan, Purpose of tx/functional activities, Rehab process, Safety issues, Transfer techniques Teaching Recipient: Patient Teaching Methods: Discussion Response to Teaching: Verbalize Understanding OT Assisted Goals Assisted Goals Time Frame: Dec 29, 2020 Eating (QC): 6 Oral Hygiene (QC): 6 Toileting Hygiene (QC): 6 Shower/Bathe Self (QC): 4 Upper Body Dressing (QC): 5 Lower Body Dressing (QC): 4 On/Off Footwear (QC): 4 Additional Goals: 1-Demonstrate ADL Tasks, 2-Verbalize Understanding, 3-Impr oveStrength/[place] 1=Demonstrate adherence to instructed precautions during ADL tasks. 2=Patient will verbalize/demonstrate understanding of assistive devices/modifications for ADL. 3=Patient will improve strength/tolerance for activity to enable patient to perform ADL's. OT Education/Plan Problem List/Assessment Assessment: Decreased Activ Tolerance, Decreased UE Strength, Impaired Funct Balance, Impaired I ADL's, Impaired Self-Care Skills Discharge Recommendations Plan/Recommendations: Continue POC Therapy Discharge Recommendati: Assisted Living Treatment Plan/Plan of Care Patient would benefit from OT for education, treatment and training to promote independence in ADL's, mobility, safety and/or upper extremity function for ADL's. Plan of Care: ADL Retraining, Functional Mobility, UE Funct Exercise/Act Treatment Duration: Dec 29, 2020 Frequency: 5 times per week Estimated Hrs Per Day: .25 hour per day Rehab Potential: Fair Time/GCodes Start Time: 11:32 Stop Time: 11:50 Total Time Billed (hr/min): 18 Billed Treatment Time 1, VIKKI JORDAN OT Dec 17, 2020 12:12
[2020-12-17] MEDS ORDERED: ALPR0.5T7 PO (13:32)
[2020-12-17] MEDS ORDERED: ROPI0.5T4 PO (13:32)
[2020-12-17] MEDS ORDERED: CHOL20002 PO (13:32)
[2020-12-17] MEDS ORDERED: RIVA15TA PO (13:32)
[2020-12-17] MEDS ORDERED: VIT-10 PO (13:32)
[2020-12-17] MEDS ORDERED: CALC-140 PO (13:32)
[2020-12-17] MEDS ORDERED: MELA10TA2 PO (13:32)
[2020-12-17] MEDS ORDERED: DOCU100C37 PO (13:32)
[2020-12-17] MEDS ORDERED: AMIO200T6 PO (13:32)
[2020-12-17] MEDS ORDERED: INSU100I48 SC (13:32)
[2020-12-17] MEDS ORDERED: DILT240C91 PO (13:32)
[2020-12-17] MEDS ORDERED: PANT40TA52 PO (13:32)
[2020-12-17] MEDS ORDERED: LEVO5TAB28 PO (13:32)
[2020-12-17] MEDS ORDERED: ACET-2650 PO (13:32)
--- NOTE | 2020-12-17 14:22 | History & Physical ---
HPI History of Present Illness: 89 yo female brought to ER after she fell twice at home. Uses a walker. Has been living alone, thinks she need to move somewhere with assistance. Has fallen rarely in past, but never so close together. She denies passing out, denies dizziness. Was between two twin beds and was putting sheets on the bed, and then was laying on the floor between the beds. She denies hitting her head, and has pain only in her hip, no other places are bothering her. She is also bothered by shakiness in her whole body, worse when she is doing anything besides lying in bed and has been going for a few years. Date seen by provider: Dec 17, 2020 Time Seen by Provider: 14:28 Attending Physician Loraine Rodriguez MD [facility] [place] Consult Date of Admission Dec 16, 2020 at 20:00 Home Medications Home Medications Reviewed patient Home Medication Reconciliation performed by pharmacy medication reconciliations power generation technician and/or nursing. Patients Allergies have been reviewed. Allergies Coded Allergies: Penicillins (Unverified Allergy, Unknown, rash, 07/16/18) Sulfa (Sulfonamide Antibiotics) (Unverified Allergy, Unknown, rash, 07/16/18) amlodipine (Unverified Allergy, Unknown, feet and leg swelling, 07/16/18) azithromycin (Unverified Allergy, Unknown, diarrhea, 07/16/18) diclofenac (Unverified Allergy, Unknown, colon cramp, 07/16/18) diltiazem (Unverified Allergy, Unknown, headache, jaw ache, swollen gums, 07/16/18) esomeprazole (Unverified Allergy, Unknown, gas, 07/16/18) famotidine (Unverified Allergy, Unknown, 04/19/18) fluocinonide (Unverified Allergy, Unknown, sore mouth, 07/16/18) glyburide (Unverified Allergy, Unknown, cough, hoarseness, hair loss, 07/16/18) lisinopril (Verified Allergy, Unknown, feet cramp, 07/16/18) losartan (Unverified Allergy, Unknown, cough, 07/16/18) meloxicam (Unverified Allergy, Unknown, bloody stool, 07/16/18) metaxalone (Verified Allergy, Unknown, nervousness, 07/16/18) metformin (Unverified Allergy, Unknown, diarrhea, 07/16/18) misoprostol (Unverified Allergy, Unknown, colon cramp, 07/16/18) naproxen (Unverified Allergy, Unknown, 04/19/18) pioglitazone (Unverified Allergy, Unknown, stiffness, 07/16/18) pirbuterol (Unverified Allergy, Unknown, face itching, 07/16/18) rosiglitazone (Unverified Allergy, Unknown, stiffness, 07/16/18) Uncoded Allergies: multivitamin (Allergy, Unknown, rash, 07/16/18) RHG-Stsasc-Bnfzpa Hx Patient Social History 2nd Hand Smoke Exposure: No Recent Hopitalizations: No Alcohol Use?: No Have you traveled recently?: No Immunizations Up To Date Date of Pneumonia Vaccine: Apr 18, 2017 Date of Influenza Vaccine: Jan 08, 2020 Past Medical History PMHx: Diabetes Arthritis Atrial fibrillation Hypertension Family Medical History Family History: Cardiovascular disease G8 BROTHER Diabetes mellitus SON Review of Systems ([facility]) Constitutional: No fever EENTM: No vision loss (no acute change, thinks vision is getting worse over all) Respiratory: cough, dyspnea on exertion; No short of breath Cardiovascular: chest pain ("once in a while"), palpitations Gastrointestinal: abdominal pain; No constipation, No diarrhea, No nausea, No vomiting Genitourinary: No dysuria Psychiatric/Neurological: Anxiety Reviewed Test Results Reviewed Test Results Lab Laboratory Tests Test 12/16/20 15:47 12/16/20 16:45 12/16/20 17:38 12/17/20 04:20 Range/Units White Blood Count 7.5 7.2 4.3-11.0 10^3/uL Red Blood Count 3.56 L 3.17 L 3.80-5.11 10^6/uL Hemoglobin 10.3 L 9.3 L 11.5-16.0 g/dL Hematocrit 32 L 28 L 35-52 % Mean Corpuscular Volume 90 89 80-99 fL Mean Corpuscular Hemoglobin 29 29 25-34 pg Mean Corpuscular Hemoglobin Concent 32 33 32-36 g/dL Red Cell Distribution Width 13.2 13.0 10.0-14.5 % Platelet Count 291 245 130-400 10^3/uL Mean Platelet Volume 9.4 8.8 L 9.0-12.2 fL Immature Granulocyte % (Auto) 1 1 % Neutrophils (%) (Auto) 83 H 78 H 42-75 % Lymphocytes (%) (Auto) 8 L 9 L 12-44 % Monocytes (%) (Auto) 8 11 0-12 % Eosinophils (%) (Auto) 1 1 0-10 % Basophils (%) (Auto) 0 0 0-10 % Neutrophils # (Auto) 6.2 5.6 1.8-7.8 10^3/uL Lymphocytes # (Auto) 0.6 L 0.6 L 1.0-4.0 10^3/uL Monocytes # (Auto) 0.6 0.8 0.0-1.0 10^3/uL Eosinophils # (Auto) 0.1 0.1 0.0-0.3 10^3/uL Basophils # (Auto) 0.0 0.0 0.0-0.1 10^3/uL Immature Granulocyte # (Auto) 0.1 0.1 0.0-0.1 10^3/uL Neutrophils % (Manual) 75 % Lymphocytes % (Manual) 8 % Monocytes % (Manual) 6 % Eosinophils % (Manual) 0 % Basophils % (Manual) 1 % Band Neutrophils 10 % Hypochromasia 1+ Sodium Level 128 L 132 L 135-145 MMOL/L Potassium Level 3.6 3.2 L 3.6-5.0 MMOL/L Chloride Level 92 L 101 98-107 MMOL/L Carbon Dioxide Level 28 22 21-32 MMOL/L Anion Gap 8 9 5-14 MMOL/L Blood Urea Nitrogen 23 H 14 7-18 MG/DL Creatinine 0.90 0.63 0.60-1.30 MG/DL Estimat Glomerular Filtration Rate 59 89 BUN/Creatinine Ratio 26 22 Glucose Level 243 H 112 H 70-105 MG/DL Lactic Acid Level 1.31 0.50-2.00 MMOL/L Calcium Level 8.7 8.0 L 8.5-10.1 MG/DL Corrected Calcium 8.9 8.5-10.1 MG/DL Total Bilirubin 0.4 0.1-1.0 MG/DL Aspartate Amino Transf (AST/SGOT) 33 5-34 U/L Alanine Aminotransferase (ALT/SGPT) 43 0-55 U/L Alkaline Phosphatase 106 40-136 U/L Total Protein 5.7 L 6.4-8.2 GM/DL Albumin 3.7 3.2-4.5 GM/DL Urine Color YELLOW Urine Clarity CLEAR Urine pH 6.5 5-9 [address] [employer] 1.015 L 1.016-1.022 Urine Protein NEGATIVE NEGATIVE Urine Glucose (UA) 1+ H NEGATIVE Urine Ketones NEGATIVE NEGATIVE Urine Nitrite NEGATIVE NEGATIVE Urine Bilirubin NEGATIVE NEGATIVE Urine Urobilinogen 0.2 < = 1.0 MG/DL Urine Leukocyte Esterase NEGATIVE NEGATIVE Urine RBC (Auto) NEGATIVE NEGATIVE Urine RBC 0-2 /HPF Urine WBC RARE /HPF Urine Squamous Epithelial Cells RARE /HPF Urine Crystals NONE /LPF Urine Bacteria NEGATIVE /HPF Urine Casts NONE /LPF Urine Mucus NEGATIVE /LPF Urine Culture Indicated NO Radiology Pelvis/Hip x-ray: IMPRESSION: No identified acute bony abnormality of the pelvis or left hip. Physical Exam-([facility]) Physical Exam Vital Signs VS - Last 72 Hours, by Label 12/16/20 12/16/20 12/16/20 12/16/20 15:45 19:08 20:00 20:58 Temp 36.8 36.0 Pulse 85 63 61 Resp 18 16 18 B/P (MAP) 120/63 (82) 131/57 98/54 (69) Pulse Ox 95 97 96 O2 Delivery Room Air Room Air Room Air Room Air 12/17/20 12/17/20 12/17/20 12/17/20 00:00 03:12 07:45 08:00 Temp 36.0 36.0 35.5 Pulse 63 60 64 Resp 18 20 18 B/P (MAP) 121/57 (78) 119/57 (77) 127/59 (81) Pulse Ox 99 91 95 97 O2 Delivery Room Air Room Air Room Air Room Air 12/17/20 12/17/20 12/17/20 11:23 15:22 19:23 Temp 35.2 35.9 36.1 Pulse 65 60 64 Resp 16 18 18 B/P (MAP) 145/66 (92) 120/56 (77) 123/56 (78) Pulse Ox 97 92 94 O2 Delivery Room Air Room Air Room Air Capillary Refill : Less Than 3 Seconds General Appearance: no apparent distress HEENT: PERRL/EOMI Respiratory: lungs clear, normal breath sounds Cardiovascular: regular rate, rhythm Gastrointestinal: normal bowel sounds, non tender, soft Extremities: no pedal edema Neurologic/Psychiatric: systems analyst II-XII nml as tested, alert, normal mood/affect; No abnormal cerebellar tests, No motor weakness; other (oriented to self and that she is in hospital) Skin: normal color, warm/dry Assessment/Plan Assessment/Plan Admission Status: Inpatient Order (span 2 midnights) Reason for Inpatient Admission: Hyponatremia (1) Frequent falls Status: Acute Assessment & Plan: Uncertain if progression of baseline debility or other cause, no clear evidence of infection currently. Family possibly working on assisted living for d/c. Social work consulted. (2) Weakness Status: Acute Assessment & Plan: PT (3) Hyponatremia Status: Acute Assessment & Plan: Improving, monitor. (4) Diabetes mellitus Status: Chronic Qualifiers: (5) Hyperlipidemia Status: Chronic (6) Hypertension Status: Chronic (7) Atrial fibrillation Status: Chronic (8) GERD (gastroesophageal reflux disease) Status: Chronic LORAINE RODRIGUEZ MD Dec 17, 2020 14:22
[2020-12-17] MEDS ORDERED: RIVAROXABAN 15 MG TABLET (XARELTO) PO SCH (18:00)
[2020-12-17] MEDS: rOPINIRole 0.25 MG (REQUIP) TAB PO SCH (21:11)
[2020-12-17] MEDS: AMIODARONE 200 MG (CORDARONE) TAB PO SCH (21:11)
[2020-12-17] MEDS: LORATADINE (CLARITIN) 10 MG TAB PO SCH (21:11)
[2020-12-18] MEDS: NS IV 1000 ML 1,000 ML IV SCH ×2 (01:28→11:26)
[2020-12-18] MEDS: MELATONIN 10 MG TABLET PO PRN (01:32)
[2020-12-18] MEDS: ACETAMINOPHEN 500 MG TAB (TYLENOL) PO PRN (01:32)
[2020-12-18 03:00] VITALS: BP 112/54
[2020-12-18] MEDS: rOPINIRole 0.25 MG (REQUIP) TAB PO SCH ×3 (06:21→20:58)
[2020-12-18 06:56] LABS: HEMATOCRIT 28 % (35-52); HEMOGLOBIN 8.6 g/dL (11.5-16.0); MEAN CORPUSCULAR HEMOGLOBIN 29 pg (25-34); MEAN CORPUSCULAR HGB CONC 31 g/dL (32-36); MEAN CORPUSCULAR VOLUME 96 fL (80-99); MEAN PLATELET VOLUME 9.1 fL (9.0-12.2); PLATELET COUNT 139 10^3/uL (130-400); WHITE BLOOD COUNT 6.6 10^3/uL (4.3-11.0)
[2020-12-18 07:13] LABS: POTASSIUM 4.5 MMOL/L (3.6-5.0)
[2020-12-18 07:15] LABS: CALCIUM 7.8 MG/DL (8.5-10.1)
[2020-12-18 07:19] LABS: CREATININE SERUM 0.57 MG/DL (0.60-1.30)
[2020-12-18 07:25] VITALS: BP 132/68
--- NOTE | 2020-12-18 08:44 | Progress Note - Hospitalist ---
Subjective HPI/CC On Admission Date Seen by Provider: Dec 18, 2020 Time Seen by Provider: 06:15 Subjective/Events-last exam Nursing staff report a small amount of bright red blood that appears to be coming from a hemorrhoid this is mixed in with darker blood that was heme positive. Patient reports some mild lower quadrant abdominal pain and has had 5 or 6 small volume stools with blood overnight. She denies chest pain or shortness of breath but RT noted increased congestion and they were concerned about heart failure. Focused Exam Lactate Level 12/16/20 16:45: Lactic Acid Level 1.31 Objective Exam Vital Signs Vital Signs Date Time Temp Pulse Resp B/P (MAP) Pulse Ox O2 Delivery O2 Flow Rate FiO2 12/18/20 07:25 36.3 60 16 132/68 (89) 96 Room Air Capillary Refill : Less Than 3 Seconds General Appearance: No Apparent Distress, Other (Significant pallor noted.) Respiratory: No Accessory Muscle Use, No Respiratory Distress, Other (Scattered rhonchi with some basilar rales no wheezing) Cardiovascular: Regular Rate, Rhythm, No Edema, No Gallop, No JVD, No Murmur Gastrointestinal: Normal Bowel Sounds, No Organomegaly, Soft, Other (Mild distention with mild bilateral lower quadrant abdominal discomfort to palpation no rebound or guarding.) Results/Procedures Lab Laboratory Tests 12/18/20 06:47 Patient resulted labs reviewed. Assessment/Plan Assessment and Plan Assess & Plan/Chief Complaint (1) Frequent falls Status: Acute Assessment & Plan: Uncertain if progression of baseline debility or other cause, no clear evidence of infection currently. Family possibly working on assisted living for d/c. Social work consulted. (2) Weakness Status: Acute Assessment & Plan: PT (3) Hyponatremia Status: Acute Assessment & Plan: Improving, monitor. (4) Diabetes mellitus Status: Chronic Qualifiers: (5) Hyperlipidemia Status: Chronic (6) Hypertension Status: Chronic (7) Atrial fibrillation Status: Chronic (8) GERD (gastroesophageal reflux disease) Status: Chron 9. GI bleed will necessitate discontinuance of Xarelto currently the patient is hemodynamically stable with a hemoglobin of 8.6 as long as bleeding remains small-volume we will repeat blood counts in the morning plan transfusion for levels under 8. Electronic medical record reviewed 1 month ago she had undergone EGD evaluation that revealed no evidence for peptic ulcer disease with no potential bleeding sites and no evidence for erosive esophagitis she had a hyperplastic polyp removed from the distal esophagus. LARISA VIRK MD Dec 18, 2020 08:44
[2020-12-18] MEDS: PANTOPRAZOLE 40 MG (PROTONIX) TAB PO SCH (09:03)
[2020-12-18] MEDS: AMIODARONE 200 MG (CORDARONE) TAB PO SCH ×2 (09:04→20:58)
[2020-12-18] MEDS: DOCUSATE SODIUM 100 MG (COLACE) CAP PO SCH (09:04)
--- NOTE | 2020-12-18 09:31 | Physical Therapy Daily Note ---
PT Daily Note-Current Subjective Patient lying on bedpan upon PT arrival, reports she has had diarrhea all morning. Reports no pain currently, but is scared to get out of bed. Mental Status Patient Orientation: Person Attachments: Mirza Catheter, IV Transfers SCALE: Activities may be completed with or without assistive devices. 0-Jjggkrgaju-hvgutdw completes the activity by him/herself with no assistance from a helper. 5-Set-up or Clean-up Assistance-helper sets up or cleans up; patient completes activity. [place] assists only prior to or following the activity. 4-Supervision or Touching Assistance-helper provides verbal cues and/or touching/steadying and/or contact guard assistance as patient completes activity. Assistance may be provided throughout the activity or intermittently. 3-Partial/Moderate Assistance-helper does LESS THAN HALF the effort. [place] lifts, holds or supports trunk or limbs, but provides less than half the effort. 2-Substantial/Maximal Assistance-helper does MORE THAN HALF the effort. [place] lifts or holds trunk or limbs and provides more than half the effort. 0-Itxasfdut-eseuix does ALL the effort. Patient does none of the effort to complete the activity. Or, the assistance of 2 or more helpers is required for the patient to complete the activity. If activity was not attempted, code reason: 7-Patient Refused. 9-Not Applicable-not attempted and the patient did not perform the activity before the current illness, exacerbation or injury. 10-Not Attempted due to Environmental Limitations-(lack of equipment, weather restraints, etc.). 88-Not Attempted due to Medical Conditions or Safety Concerns. Roll Left & Right (QC): 4 Sit to Lying (QC): 4 Lying to Sitting/Side of Bed(Q: 4 Sit to Stand (QC): 4 Chair/Uhs-vh-Fzkxn Xfer(QC): 4 Toilet Transfer (QC): 4 Gait Training Does the Patient Walk?: Yes Distance: 40 ft Walk 10 feet (QC): 4 Gait Persons Needed: 1 Gait Assistive Device: FWW Treatments Visit, Functional activity, Gait training Assessment Current Status: Fair Progress Patient on bedpan upon PT arrival, nursing unit manager assists with bed mobility and cleaning. Patient performed all bed mobility with CGA and verbal cues for progress, motivation and safety. Patient ambulates 40 feet in room with CGA with FWW. Patient apprehensive about gait training today, most likely due to uncontrolled diarrhea, however does report increased soreness in her hip with gait. Patient in chair post treatment with all needs met, nursing notified, call light in hand and family in the room. PT Care Home Goals Spiral Machine Operator Goals PT Spiral Machine Operator Goals Time Frame: Jan 01, 2021 Roll Left & Right (QC): 6 Sit to Lying (QC): 6 Lying-Sitting on Side/Bed(QC): 6 Sit to Stand (QC): 5 Chair/Ucc-oy-Emvpv Xfer(QC): 5 Toilet Transfer (QC): 5 Walk 10 feet (QC): 5 Walk 50ft with 2 Turns (QC): 5 Walk 150 ft (QC): 5 PT Plan Treatment/Plan Treatment Plan: Continue Plan of Care Treatment Plan: Bed Mobility, Education, Functional Activity [place], Functional Strength, Gait, Safety, Therapeutic Exercise, Transfers Treatment Duration: Jan 01, 2021 Frequency: 6 times per week Estimated Hrs Per Day: .25 hour per day Safety Risks/Education Patient Education: Gait Training, Transfer Techniques, Safety Issues Teaching Recipient: Patient Teaching Methods: Demonstration, Discussion Response to Teaching: Verbalize Understanding, Reinforcement Needed Time/GCodes Time In: 0859 Time Out: 925 Total Billed Treatment Time: 26 Total Billed Treatment Visit, ENRIQUE Mcneil JOHN A PT Dec 18, 2020 09:31
[2020-12-18] MEDS: METHYL SALICYLATE/MENTHOL (BENGAY, MUSCLE RUB) 3 OZ TUBE TP PRN (09:40)
[2020-12-18 11:10] VITALS: BP 143/63
--- NOTE | 2020-12-18 13:15 | Consultation - Surgery ---
PARIS SEPULVEDA 12/18/20 1315: History of Present Illness History of Present Illness Patient Consulted On(blue/time) 12/18/20 13:10 Date Seen by Provider: Dec 18, 2020 Time Seen by Provider: 01:30 History of Present Illness 89yo F with history of hemorrhoids presents with 2x falls 2 days ago with dark stools and consulted to surgery due to decreased hemoglobin and bright red stool with possible GI bleed. Reports L hip pain and some abdominal cramping. Denies fever, chills, nausea, vomiting, diarrhea, or chest pain. Allergies and Home Medications Allergies Coded Allergies: Penicillins (Unverified Allergy, Unknown, rash, 07/16/18) Sulfa (Sulfonamide Antibiotics) (Unverified Allergy, Unknown, rash, 07/16/18) amlodipine (Unverified Allergy, Unknown, feet and leg swelling, 07/16/18) azithromycin (Unverified Allergy, Unknown, diarrhea, 07/16/18) diclofenac (Unverified Allergy, Unknown, colon cramp, 07/16/18) diltiazem (Unverified Allergy, Unknown, headache, jaw ache, swollen gums, 07/16/18) esomeprazole (Unverified Allergy, Unknown, gas, 07/16/18) famotidine (Unverified Allergy, Unknown, 04/19/18) fluocinonide (Unverified Allergy, Unknown, sore mouth, 07/16/18) glyburide (Unverified Allergy, Unknown, cough, hoarseness, hair loss, 07/16/18) lisinopril (Verified Allergy, Unknown, feet cramp, 07/16/18) losartan (Unverified Allergy, Unknown, cough, 07/16/18) meloxicam (Unverified Allergy, Unknown, bloody stool, 07/16/18) metaxalone (Verified Allergy, Unknown, nervousness, 07/16/18) metformin (Unverified Allergy, Unknown, diarrhea, 07/16/18) misoprostol (Unverified Allergy, Unknown, colon cramp, 07/16/18) naproxen (Unverified Allergy, Unknown, 04/19/18) pioglitazone (Unverified Allergy, Unknown, stiffness, 07/16/18) pirbuterol (Unverified Allergy, Unknown, face itching, 07/16/18) rosiglitazone (Unverified Allergy, Unknown, stiffness, 07/16/18) Uncoded Allergies: multivitamin (Allergy, Unknown, rash, 07/16/18) Patient Home Medication List Acetaminophen (Tylenol Arthritis) 650 Mg Tablet.er, 650-1,300 MG PO Q8H PRN for PAIN-MILD (1-4), (Reported) Entered as Reported by: KARLA DELGADO on 12/17/201331 Last Action: Converted Alprazolam (Alprazolam) 0.5 Mg Tablet, 0.5 MG PO HS PRN for ANXIETY, (Reported) Entered as Reported by: KARLA DELGADO on 12/17/201331 Last Action: Continued Amiodarone HCl (Amiodarone HCl) 200 Mg Tablet, 200 MG PO BID, (Reported) Entered as Reported by: KARLA DELGADO on 12/17/201331 Last Action: Continued Atorvastatin Calcium (Atorvastatin Calcium) 40 Mg Tablet, 40 MG PO DAILY, (Reported) Entered as Reported by: MARCUS BARRIENTOS on 04/19/181419 Last Action: Continued Calcium Carbonate/Vitamin D3 (Calcium + Vitamin D Tablet) 1 Each Tablet, 1 EACH PO DAILY, (Reported) Entered as Reported by: KARLA DELGADO on 12/17/201331 Last Action: Held Cholecalciferol (Vitamin D3) (Vitamin D3) 50 Mcg Capsule, 50 MCG PO DAILY, (Reported) Entered as Reported by: KARLA DELGADO on 12/17/201331 Last Action: Held Diltiazem HCl (Diltiazem 24Hr ER) 240 Mg Cap.er.24h, 240 MG PO 1800, (Reported) Entered as Reported by: KARLA DELGADO on 12/17/201331 Last Action: Reviewed Docusate Sodium (Docusate Sodium) 100 Mg Capsule, 100 MG PO DAILY, (Reported) Entered as Reported by: KARLA DELGADO on 12/17/201331 Last Action: Continued Hydrochlorothiazide (Hydrochlorothiazide) 25 Mg Tablet, 25 MG PO DAILY, (Reported) Entered as Reported by: MARCUS BARRIENTOS on 04/19/181419 Last Action: Held Insulin Glargine,Hum.rec.anlog (Basaglar Kwikpen U-100) 100 Unit/1 Ml Insuln.pen, 16 UNITS SC HS, (Reported) Entered as Reported by: MARCUS BARRIENTOS on 04/19/18 142 Last Action: Converted Insulin Lispro (Insulin Lispro Kwikpen U-100) 100 Unit/1 Ml Insuln.pen, 5 UNITS SC AC, (Reported) Entered as Reported by: KARLA DELGADO on 12/17/201331 Last Action: Held Levocetirizine Dihydrochloride (Xyzal) 5 Mg Tablet, 5 MG PO HS, (Reported) Entered as Reported by: KARLA DELGADO on 12/17/201331 Last Action: Continued Melatonin (Melatonin) 10 Mg Tablet, 10 MG PO HS PRN for SLEEP, (Reported) Entered as Reported by: KARLA DELGADO on 12/17/201331 Last Action: Continued Metoprolol Succinate (Metoprolol Succinate) 25 Mg Tab.er.24h, 25 MG PO DAILY, (Reported) Entered as Reported by: REGINA RUTHERFORD on 10/10/18911 Last Action: Continued Pantoprazole Sodium (Pantoprazole Sodium) 40 Mg Tablet.dr, 40 MG PO DAILY, (Reported) Entered as Reported by: KARLA DELGADO on 12/17/201331 Last Action: Continued Rivaroxaban (Xarelto) 15 Mg Tablet, 15 MG PO 1800, (Reported) Entered as Reported by: KARLA DELGADO on 12/17/201331 Last Action: Continued Ropinirole HCl (Ropinirole HCl) 0.5 Mg Tablet, 0.5 MG PO TID, (Reported) Entered as Reported by: KARLA DELGADO on 12/17/201331 Last Action: Converted Vit A/C/E/Zinc/Selenium/Copper (Vision Formula Tablet) 1 Each Tablet, 1 EACH PO DAILY, (Reported) Entered as Reported by: KARLA DELGADO on 12/17/201331 Last Action: Held Discontinued Medications ALPRAZolam (Xanax Tablet) 0.25 Mg Tablet, 0.25-0.5 MG PO BID PRN for ANXIETY, (Reported) Discontinued Reason: No Longer Taking Entered as Reported by: REGINA RUTHERFORD on 10/10/18911 Last Action: Discontinued Amlodipine Besylate (Amlodipine Besylate) 5 Mg Tablet, 5 MG PO DAILY, (Reported) Discontinued Reason: No Longer Taking Entered as Reported by: WILLIAM WOODRUFF on 07/16/18 08 Last Action: Discontinued Bacillus Coagulans (Probiotic) 1 Each Tab.chew, 1 EACH PO DAILY, (Reported) Discontinued Reason: No Longer Taking Entered as Reported by: REGINA RUTHERFORD on 10/10/18911 Last Action: Discontinued Calcium Carbonate/Vitamin D3 (Calcium + Vitamin D Tablet) 1 Each Tablet, 1 EACH PO, (Reported) Discontinued Reason: No Longer Taking Entered as Reported by: REGINA RUTHERFROD on 10/10/18911 Last Action: Discontinued Cholecalciferol (Vitamin D3) (D3-2000) 2,000 Unit Capsule, 2,000 UNIT PO DAILY, (Reported) Discontinued Reason: No Longer Taking Entered as Reported by: REGINA RUTHERFORD on 10/10/18911 Last Action: Discontinued Fluticasone Propionate (Fluticasone Propionate) 15.8 Ml Malone.susp, 15.8 ML NS DAILY, (Reported) Discontinued Reason: No Longer Taking Entered as Reported by: REGINA RUTHERFORD on 10/10/18911 Last Action: Discontinued Insulin Lispro (Humalog Kwikpen) 100 Unit/1 Ml Insuln.pen, 5 UNITS SC TIDAC, (Reported) Discontinued Reason: No Longer Taking Entered as Reported by: MARCUS BARRIENTOS on 04/19/18 1420 Last Action: Discontinued Loratadine (Loratadine) 10 Mg Tab.rapdis, 10 MG PO DAILY, (Reported) Discontinued Reason: No Longer Taking Entered as Reported by: REGINA RUTHERFORD on 10/10/18911 Last Action: Discontinued Naproxen Sodium (Aleve) 220 Mg Tablet, 220 MG PO TID PRN for PAIN-MILD TO MODERATE, (Reported) Discontinued Reason: No Longer Taking Entered as Reported by: WILLIAM WOODRUFF on 07/16/18 0809 Last Action: Discontinued Pantoprazole Sodium (Protonix) 40 Mg Tablet.dr, 40 MG PO DAILY Discontinued Reason: No Longer Taking Prescribed by: GRECIA GALLARDO on 11/02/20 1048 Last Action: Discontinued Rivaroxaban (Xarelto Tablet) 15 Mg Tablet, 15 MG PO DAILY@1700 Discontinued Reason: No Longer Taking Prescribed by: OSORIO DAWSON on 04/23/18 0902 Last Action: Discontinued Vit A/C/E/Zinc/Selenium/Copper (Vision Formula Tablet) 1 Each Tablet, 1 EACH PO DAILY, (Reported) Discontinued Reason: No Longer Taking Entered as Reported by: REGINA RUTHERFORD on 10/10/18911 Last Action: Discontinued Past Eevncmj-Jybeye-Dapcoi Hx Patient Social History 2nd Hand Smoke Exposure: No Recent Hopitalizations: No Alcohol Use?: No Have you traveled recently?: No Immunizations Up To Date Date of Pneumonia Vaccine: Apr 18, 2017 Date of Influenza Vaccine: Jan 08, 2020 Seasonal Allergies Seasonal Allergies: No Surgeries History of Surgeries: Yes (D & C, pacemaker 10/18, RIGHT HIP ) Surgeries: Gallbladder, Joint Replacement, Pacemaker, Tubal Ligation Respiratory History of Respiratory Disorde: No Cardiovascular History of Cardiac Disorders: Yes (HERE TODAY FOR PACEMAKER, SSS) Cardiac Disorders: Atrial Fibrillation, Hypertension Neurological History of Neurological Disord: Yes Neurological Disorders: Stroke Reproductive System Sexually Transmitted Disease: No HIV/AIDS: No Female Reproductive Disorders: Denies Genitourinary History of Genitourinary Disor: No Gastrointestinal History of Gastrointestinal Di: Yes Gastrointestinal Disorders: Gastroesophageal Reflux, Gall Bladder Disease Musculoskeletal History of Musculoskeletal Dis: Yes Musculoskeletal Disorders: Arthritis Endocrine History of Endocrine Disorders: Yes (dyslipidemia) Endocrine Disorders: Diabetes, Insulin dep HEENT History of HEENT Disorders: Yes HEENT Disorders: Macular Degeneration Hearing Impairment: Hard of Hearing, Hearing Aide Right, Hearing Aide Left Cancer History of Cancer: No Psychosocial History of Psychiatric Problem: Yes (short term memory loss) Behavioral Health Disorders: Anxiety, Depression Integumentary History of Skin or Integumenta: Yes (bruises easily) Blood Transfusions History of Blood Disorders: No Adverse Reaction to a Blood Tr: No Family Medical History Family Medial History: Cardiovascular disease G8 BROTHER Diabetes mellitus SON Review of Systems-General Constitutional: No chills, No fever Respiratory: No cough, No short of breath, No wheezing Cardiovascular: No chest pain, No edema, No palpitations Gastrointestinal: No diarrhea, No nausea, No vomiting Musculoskeletal: joint pain (L hip pain) Physical Exam-General Problems Physical Exam Vital Signs Vital Signs - First Documented 12/16/20 15:45 Temp 36.8 Pulse 85 Resp 18 B/P (MAP) 120/63 (82) Pulse Ox 95 O2 Delivery Room Air Capillary Refill : Less Than 3 Seconds HEENT: PERRL/EOMI Neck: supple, normal inspection Respiratory: chest non-tender, normal breath sounds Cardiovascular: regular rate, rhythm, no edema Gastrointestinal: non tender, soft; No distended Extremities: non-tender, no pedal edema, no calf tenderness, normal capillary refill Neurologic/Psychiatric: alert, oriented x 3 Skin: No cyanosis; pallor Data Review Labs Laboratory Tests 12/17/20 20:20: Glucometer 198H 12/18/20 05:55: Stool Occult Blood Immunoassay POSITIVEH 12/18/20 06:09: Glucometer 92 12/18/20 06:47: White Blood Count 6.6, Red Blood Count 2.93L, Hemoglobin 8.6L, Hematocrit 28L, Mean Corpuscular Volume 96, Mean Corpuscular Hemoglobin 29, Mean Corpuscular Hemoglobin Concent 31L, Red Cell Distribution Width 13.6, Platelet Count 139, Mean Platelet Volume 9.1, Sodium Level 132L, Potassium Level 4.5, Chloride Level 106, Carbon Dioxide Level 18L, Anion Gap 8, Blood Urea Nitrogen 9, Creatinine 0.57L, Estimat Glomerular Filtration Rate 100, BUN/Creatinine Ratio 16, Glucose Level 83, Calcium Level 7.8L, B-Type Natriuretic Peptide 473.5H Assessment/Plan Assessment/Plan Assessment/Plan Frequent falls Weakness Hyponatremia DM Hyperlipidemia HTN Afib GERD h/o Hemorroids Xarelto Held Continue to monitor for improvement. Will need to transfuse PRBCs if HgBs levels drop too low. Colonoscopy planned if patient condition improves GRECIA GALLARDO DO 12/18/20 1521: History of Present Illness History of Present Illness History of Present Illness Consult requested by Dr. Rodrigues due to hemoglobin trending down with history of falls and dark stools. Patient is a 89-year-old female who was admitted due to falls. Patient family states she has been getting weaker and having a couple falls and after the second 1 decided to bring her to the hospital for further evaluation. Patient was admitted. Her hemoglobin is slowly trending down. Patient has had some dark stools and occasionally some bright red stools on occasion her last few months. Patient has been on anticoagulation. This is on hold currently. Patient has some abdominal discomfort throughout the abdomen. She states that the only seems to make it better or make it worse. Changes locations she states. It comes and goes. She is tolerating diet currently. She feels weak and just feels like she is continuing to decline. Patient had an EGD and early October which she denies any active bleeding. She did have a polyp biopsied which was hyperplastic with focal erosion. Allergies and Home Medications Allergies Coded Allergies: Penicillins (Unverified Allergy, Unknown, rash, 07/16/18) Sulfa (Sulfonamide Antibiotics) (Unverified Allergy, Unknown, rash, 07/16/18) amlodipine (Unverified Allergy, Unknown, feet and leg swelling, 07/16/18) azithromycin (Unverified Allergy, Unknown, diarrhea, 07/16/18) diclofenac (Unverified Allergy, Unknown, colon cramp, 07/16/18) diltiazem (Unverified Allergy, Unknown, headache, jaw ache, swollen gums, 07/16/18) esomeprazole (Unverified Allergy, Unknown, gas, 07/16/18) famotidine (Unverified Allergy, Unknown, 04/19/18) fluocinonide (Unverified Allergy, Unknown, sore mouth, 07/16/18) glyburide (Unverified Allergy, Unknown, cough, hoarseness, hair loss, 07/16/18) lisinopril (Verified Allergy, Unknown, feet cramp, 07/16/18) losartan (Unverified Allergy, Unknown, cough, 07/16/18) meloxicam (Unverified Allergy, Unknown, bloody stool, 07/16/18) metaxalone (Verified Allergy, Unknown, nervousness, 07/16/18) metformin (Unverified Allergy, Unknown, diarrhea, 07/16/18) misoprostol (Unverified Allergy, Unknown, colon cramp, 07/16/18) naproxen (Unverified Allergy, Unknown, 04/19/18) pioglitazone (Unverified Allergy, Unknown, stiffness, 07/16/18) pirbuterol (Unverified Allergy, Unknown, face itching, 07/16/18) rosiglitazone (Unverified Allergy, Unknown, stiffness, 07/16/18) Uncoded Allergies: multivitamin (Allergy, Unknown, rash, 07/16/18) Patient Home Medication List Home Medication List Reviewed: Yes Acetaminophen (Tylenol Arthritis) 650 Mg Tablet.er, 650-1,300 MG PO Q8H PRN for PAIN-MILD (1-4), (Reported) Entered as Reported by: KARLA DELGADO on 12/17/201331 Last Action: Converted Alprazolam (Alprazolam) 0.5 Mg Tablet, 0.5 MG PO HS PRN for ANXIETY, (Reported) Entered as Reported by: KARLA DELGADO on 12/17/201331 Last Action: Continued Amiodarone HCl (Amiodarone HCl) 200 Mg Tablet, 200 MG PO BID, (Reported) Entered as Reported by: KARLA DELGADO on 12/17/201331 Last Action: Continued Atorvastatin Calcium (Atorvastatin Calcium) 40 Mg Tablet, 40 MG PO DAILY, (Reported) Entered as Reported by: MARCUS BARRIENTOS on 04/19/181419 Last Action: Continued Calcium Carbonate/Vitamin D3 (Calcium + Vitamin D Tablet) 1 Each Tablet, 1 EACH PO DAILY, (Reported) Entered as Reported by: KARLA DELGADO on 12/17/201331 Last Action: Held Cholecalciferol (Vitamin D3) (Vitamin D3) 50 Mcg Capsule, 50 MCG PO DAILY, (Reported) Entered as Reported by: KARLA DELGADO on 12/17/201331 Last Action: Held Diltiazem HCl (Diltiazem 24Hr ER) 240 Mg Cap.er.24h, 240 MG PO 1800, (Reported) Entered as Reported by: KARLA DELGADO on 12/17/201331 Last Action: Reviewed Docusate Sodium (Docusate Sodium) 100 Mg Capsule, 100 MG PO DAILY, (Reported) Entered as Reported by: KARLA DELGADO on 12/17/201331 Last Action: Continued Hydrochlorothiazide (Hydrochlorothiazide) 25 Mg Tablet, 25 MG PO DAILY, (Reported) Entered as Reported by: MARCUS BARRIENTOS on 04/19/181419 Last Action: Held Insulin Glargine,Hum.rec.anlog (Basaglar Kwikpen U-100) 100 Unit/1 Ml Insuln.pen, 16 UNITS SC HS, (Reported) Entered as Reported by: MARCUS BARRIENTOS on 04/19/181419 Last Action: Converted Insulin Lispro (Insulin Lispro Kwikpen U-100) 100 Unit/1 Ml Insuln.pen, 5 UNITS SC AC, (Reported) Entered as Reported by: KARLA DELGADO on 12/17/201331 Last Action: Held Levocetirizine Dihydrochloride (Xyzal) 5 Mg Tablet, 5 MG PO HS, (Reported) Entered as Reported by: KARLA DELGADO on 12/17/201331 Last Action: Continued Melatonin (Melatonin) 10 Mg Tablet, 10 MG PO HS PRN for SLEEP, (Reported) Entered as Reported by: KARLA DELGADO on 12/17/201331 Last Action: Continued Metoprolol Succinate (Metoprolol Succinate) 25 Mg Tab.er.24h, 25 MG PO DAILY, (Reported) Entered as Reported by: REGINA RUTHERFORD on 10/10/18911 Last Action: Continued Pantoprazole Sodium (Pantoprazole Sodium) 40 Mg Tablet.dr, 40 MG PO DAILY, (Reported) Entered as Reported by: KARLA DELGADO on 12/17/201331 Last Action: Continued Rivaroxaban (Xarelto) 15 Mg Tablet, 15 MG PO 1800, (Reported) Entered as Reported by: KARLA DELGADO on 12/17/201331 Last Action: Continued Ropinirole HCl (Ropinirole HCl) 0.5 Mg Tablet, 0.5 MG PO TID, (Reported) Entered as Reported by: KARLA DELGADO on 12/17/201331 Last Action: Converted Vit A/C/E/Zinc/Selenium/Copper (Vision Formula Tablet) 1 Each Tablet, 1 EACH PO DAILY, (Reported) Entered as Reported by: KARLA DELGADO on 12/17/201331 Last Action: Held Discontinued Medications ALPRAZolam (Xanax Tablet) 0.25 Mg Tablet, 0.25-0.5 MG PO BID PRN for ANXIETY, (Reported) Discontinued Reason: No Longer Taking Entered as Reported by: REGINA RUTHERFORD on 10/10/18911 Last Action: Discontinued Amlodipine Besylate (Amlodipine Besylate) 5 Mg Tablet, 5 MG PO DAILY, (Reported) Discontinued Reason: No Longer Taking Entered as Reported by: WILLIAM WOODRUFF on 07/16/18 08 Last Action: Discontinued Bacillus Coagulans (Probiotic) 1 Each Tab.chew, 1 EACH PO DAILY, (Reported) Discontinued Reason: No Longer Taking Entered as Reported by: REGINA RUTHERFORD on 10/10/18911 Last Action: Discontinued Calcium Carbonate/Vitamin D3 (Calcium + Vitamin D Tablet) 1 Each Tablet, 1 EACH PO, (Reported) Discontinued Reason: No Longer Taking Entered as Reported by: REGINA RUTHERFORD on 10/10/18911 Last Action: Discontinued Cholecalciferol (Vitamin D3) (D3-2000) 2,000 Unit Capsule, 2,000 UNIT PO DAILY, (Reported) Discontinued Reason: No Longer Taking Entered as Reported by: REGINA RUTHERFORD on 10/10/18911 Last Action: Discontinued Fluticasone Propionate (Fluticasone Propionate) 15.8 Ml Malone.susp, 15.8 ML NS DAILY, (Reported) Discontinued Reason: No Longer Taking Entered as Reported by: REGINA RUTHERFORD on 10/10/18911 Last Action: Discontinued Insulin Lispro (Humalog Kwikpen) 100 Unit/1 Ml Insuln.pen, 5 UNITS SC TIDAC, (Reported) Discontinued Reason: No Longer Taking Entered as Reported by: MARCUS BARRIENTOS on 04/19/18 1420 Last Action: Discontinued Loratadine (Loratadine) 10 Mg Tab.rapdis, 10 MG PO DAILY, (Reported) Discontinued Reason: No Longer Taking Entered as Reported by: REGINA RUTHERFORD on 10/10/18911 Last Action: Discontinued Naproxen Sodium (Aleve) 220 Mg Tablet, 220 MG PO TID PRN for PAIN-MILD TO MODERATE, (Reported) Discontinued Reason: No Longer Taking Entered as Reported by: WILLIAM WOODRUFF on 07/16/18 0809 Last Action: Discontinued Pantoprazole Sodium (Protonix) 40 Mg Tablet.dr, 40 MG PO DAILY Discontinued Reason: No Longer Taking Prescribed by: GRECIA GALLARDO on 11/02/20 1048 Last Action: Discontinued Rivaroxaban (Xarelto Tablet) 15 Mg Tablet, 15 MG PO DAILY@1700 Discontinued Reason: No Longer Taking Prescribed by: OSORIO DAWSON on 04/23/18 0902 Last Action: Discontinued Vit A/C/E/Zinc/Selenium/Copper (Vision Formula Tablet) 1 Each Tablet, 1 EACH PO DAILY, (Reported) Discontinued Reason: No Longer Taking Entered as Reported by: REGINA RUTHERFORD on 10/10/18911 Last Action: Discontinued Past Wczxvts-Wxbusx-Kwxrsu Hx Reviewed Nursing Assessment Reviewed/Agree w Nursing PMH: Yes Family Medical History Significant Family History: No Pertinent Family Hx Family Medial History: Cardiovascular disease G8 BROTHER Diabetes mellitus SON Review of Systems-General Constitutional: No chills, No fever; weakness Respiratory: No cough, No short of breath, No wheezing Cardiovascular: No chest pain, No edema, No palpitations Gastrointestinal: see HPI, abdominal pain; No diarrhea, No nausea, No vomiting Genitourinary: No decreased output, No discharge Musculoskeletal: No joint pain (L hip pain) Skin: No change in color, No change in hair/nails Psychiatric/Neurological: Denies Anxiety, Denies Depressed, Denies Emotional Problems All Other Systems Reviewed Negative Unless Noted: Yes (Negative excepted noted.) Physical Exam-General Problems Physical Exam General Appearance: no apparent distress (Laying in bed) HEENT: PERRL/EOMI, normal ENT inspection Neck: non-tender, supple, normal inspection Respiratory: chest non-tender, no respiratory distress, no accessory muscle use Cardiovascular: regular rate, rhythm, no JVD Gastrointestinal: soft; No distended; tenderness (Very minimal discomfort with deep palpation random locations) Rectal: deferred Back: normal inspection, no CVA tenderness Extremities: non-tender, no pedal edema, no calf tenderness Neurologic/Psychiatric: alert, normal mood/affect Skin: warm/dry, pallor Lymphatic: no adenopathy Assessment/Plan Assessment/Plan Assessment/Plan Frequent falls Weakness Anemia Dark stools Hyponatremia DM Hyperlipidemia HTN Afib GERD h/o Hemorroids Xarelto Held Follow hemoglobin and transfuse as needed Patient likely to leak at this current time to have colonoscopy performed patient and family and I do not feel that she would tolerate colon prep. We will continue conservative measures at this time. Supervisory-Addendum Brief Verification & Attestation Participated in pt care: history, MDM, physical Personally performed: exam, history, MDM, supervision of care Care discussed with: Medical Student Procedures: n/a Results interpretation: Verified all documentation Verification and Attestation of Medical Student E/M Service A medical student performed and documented this service in my presence. I reviewed and verified all information documented by the medical student and made modifications to such information, when appropriate. I personally performed the physical exam and medical decision making. Grecia Gallardo, Dec 18, 2020,15:21 [place] SEPULVEDA Dec 18, 2020 13:15 GRECIA GALLARDO DO Dec 18, 2020 15:21
[2020-12-18 16:00] VITALS: BP 115/56
[2020-12-18 20:00] VITALS: BP 138/73
[2020-12-18] MEDS: LORATADINE (CLARITIN) 10 MG TAB PO SCH (20:58)
[2020-12-18] MEDS: ALPRAZolam 0.5 MG (XANAX) TAB PO PRN (20:58)
[2020-12-18 23:46] VITALS: BP 118/63
[2020-12-19] VITALS (11 sets, daily range): BP systolic 122–148; BP diastolic 53–68
[2020-12-19] MEDS: MELATONIN 10 MG TABLET PO PRN (02:53)
[2020-12-19] MEDS: NS IV 1000 ML 1,000 ML IV SCH ×3 (02:59→20:36)
[2020-12-19 04:45] LABS: BASOPHILS % (AUTO) 0 % (0-10); EOSINOPHILS # (AUTO) 0.1 10^3/uL (0.0-0.3); EOSINOPHILS % (AUTO) 1 % (0-10); HEMATOCRIT 25 % (35-52); HEMOGLOBIN 7.9 g/dL (11.5-16.0); LYMPHOCYTES # (AUTO) 0.7 10^3/uL (1.0-4.0); LYMPHOCYTES % (AUTO) 8 % (12-44); MEAN CORPUSCULAR HEMOGLOBIN 29 pg (25-34); MEAN CORPUSCULAR HGB CONC 32 g/dL (32-36); MEAN CORPUSCULAR VOLUME 91 fL (80-99); MEAN PLATELET VOLUME 8.7 fL (9.0-12.2); MONOCYTES # (AUTO) 0.8 10^3/uL (0.0-1.0); MONOCYTES % (AUTO) 9 % (0-12); NEUTROPHILS # (AUTO) 6.7 10^3/uL (1.8-7.8); NEUTROPHILS % (AUTO) 81 % (42-75); PLATELET COUNT 229 10^3/uL (130-400); WHITE BLOOD COUNT 8.3 10^3/uL (4.3-11.0)
[2020-12-19 04:58] LABS: POTASSIUM 3.4 MMOL/L (3.6-5.0)
[2020-12-19 04:59] LABS: CALCIUM 7.6 MG/DL (8.5-10.1)
[2020-12-19 05:03] LABS: CREATININE SERUM 0.55 MG/DL (0.60-1.30)
[2020-12-19] MEDS: rOPINIRole 0.25 MG (REQUIP) TAB PO SCH ×3 (06:46→20:35)
[2020-12-19] MEDS: DOCUSATE SODIUM 100 MG (COLACE) CAP PO SCH (07:56)
[2020-12-19] MEDS: METHYL SALICYLATE/MENTHOL (BENGAY, MUSCLE RUB) 3 OZ TUBE TP PRN (08:15)
[2020-12-19] MEDS: PANTOPRAZOLE 40 MG (PROTONIX) TAB PO SCH (09:04)
[2020-12-19] MEDS: AMIODARONE 200 MG (CORDARONE) TAB PO SCH ×2 (09:04→20:35)
--- NOTE | 2020-12-19 10:23 | Progress Note - Hospitalist ---
Subjective HPI/CC On Admission Date Seen by Provider: Dec 19, 2020 Time Seen by Provider: 07:30 Subjective/Events-last exam Bloody diarrhea decreasing off Xarelto for her second day now. Biggest complaint is posterior buttock discomfort where the nurse states there is a significant hematoma from the fall. She does feel significantly weak and her hemoglobin was down to 7.9%. Focused Exam Lactate Level 12/16/20 16:45: Lactic Acid Level 1.31 Objective Exam Vital Signs Vital Signs Date Time Temp Pulse Resp B/P (MAP) Pulse Ox O2 Delivery O2 Flow Rate FiO2 12/19/20 08:19 36.4 61 18 136/62 (86) 96 Room Air Capillary Refill : Less Than 3 Seconds General Appearance: Chronically ill, Mild Distress HEENT: Pale Conjunctivae (L), Pale Conjunctivae (R) Respiratory: Lungs Clear, No Accessory Muscle Use, No Respiratory Distress Cardiovascular: Regular Rate, Rhythm, No Edema, No Gallop, No JVD, No Murmur Gastrointestinal: Other (Mild distention unchanged mild bilateral lower quadrant discomfort to palpation no rebound guarding or mass noted.) Results/Procedures Lab Laboratory Tests 12/19/20 04:35 Patient resulted labs reviewed. Assessment/Plan Assessment and Plan Assess & Plan/Chief Complaint (1) Frequent falls Status: Acute Assessment & Plan: Uncertain if progression of baseline debility or other cause, no clear evidence of infection currently. Family possibly working on assisted living for d/c. Social work consulted. (2) Weakness Status: Acute Assessment & Plan: PT (3) Hyponatremia Status: Acute Assessment & Plan: Improving, monitor. (4) Diabetes mellitus Status: Chronic Qualifiers: (5) Hyperlipidemia Status: Chronic (6) Hypertension Status: Chronic (7) Atrial fibrillation Status: Chronic (8) GERD (gastroesophageal reflux disease) Status: Chron 918 GI bleed will necessitate discontinuance of Xarelto currently the patient is hemodynamically stable with a hemoglobin of 8.6 as long as bleeding remains small-volume we will repeat blood counts in the morning plan transfusion for levels under 8. Electronic medical record reviewed 1 month ago she had undergone EGD evaluation that revealed no evidence for peptic ulcer disease with no potential bleeding sites and no evidence for erosive esophagitis she had a hyperplastic polyp removed from the distal esophagus. 12/18 GI bleed moderating off Xarelto patient's hemoglobin however is down to 7.9 with advanced age and significant fatigue with limited capability of blood production likely will give 2 units of packed cells today. Patient reports no antibiotic use for many months if diarrhea does not continue to improve and bleeding remains minimal would consider stool studies for enteric pathogens and C. difficile Dr. Smith continuing to follow. Critical Care Critically Ill Patient LARISA VIRK MD Dec 19, 2020 10:23
--- NOTE | 2020-12-19 12:22 | Progress Note - Surgery ---
PARIS SEPULVEDA 12/19/20 1222: Subjective Date Seen by a Provider: Dec 19, 2020 Time Seen by a Provider: 08:30 Subjective/Events-last exam Pt reports L hip pain and constipation. Hgb levels dropped to 7.9 today. Denies any fever, chills, nausea, vomiting, diarrhea, chest pain, or any blood in the stool. Focused Exam Lactate Level 12/16/20 16:45: Lactic Acid Level 1.31 Objective Exam Vital Signs Date Time Temp Pulse Resp B/P (MAP) Pulse Ox O2 Delivery O2 Flow Rate FiO2 12/19/20 08:19 36.4 61 18 136/62 (86) 96 Room Air 12/19/20 08:00 97 Room Air 12/19/20 04:08 36.4 60 17 122/65 (84) 97 Room Air 12/18/20 23:46 36.5 61 19 118/63 (81) 93 Room Air 12/18/20 20:51 97 Room Air 12/18/20 20:00 36.2 64 18 138/73 (94) 94 Room Air 12/18/20 16:00 36.6 62 18 115/56 (75) 97 Room Air I & O 12/19/20 07:00 Intake Total 950 ml Output Total 1375 ml Balance -425 ml Capillary Refill : Less Than 3 Seconds General Appearance: Chronically ill, Mild Distress HEENT: Pale Conjunctivae (L), Pale Conjunctivae (R) Respiratory: Lungs Clear, No Accessory Muscle Use, No Respiratory Distress Cardiovascular: Regular Rate, Rhythm, No Edema, No Gallop, No JVD, No Murmur Gastrointestinal: soft; No distended; tenderness (Very minimal discomfort with deep palpation random locations) Results Lab Laboratory Tests 12/18/20 20:44: Glucometer 126H 12/19/20 04:35: White Blood Count 8.3, Red Blood Count 2.73L, Hemoglobin 7.9L, Hematocrit 25L, Mean Corpuscular Volume 91, Mean Corpuscular Hemoglobin 29, Mean Corpuscular Hemoglobin Concent 32, Red Cell Distribution Width 13.2, Platelet Count 229, M trey Platelet Volume 8.7L, Immature Granulocyte % (Auto) 0, Neutrophils (%) (Auto) 81H, Lymphocytes (%) (Auto) 8L, Monocytes (%) (Auto) 9, Eosinophils (%) (Auto) 1, Basophils (%) (Auto) 0, Neutrophils # (Auto) 6.7, Lymphocytes # (Auto) 0.7L, Monocytes # (Auto) 0.8, Eosinophils # (Auto) 0.1, Basophils # (Auto) 0.0, Immature Granulocyte # (Auto) 0.0, Sodium Level 130L, Potassium Level 3.4L, Chloride Level 104, Carbon Dioxide Level 19L, Anion Gap 7, Blood Urea Nitrogen 11, Creatinine 0.55L, Estimat Glomerular Filtration Rate 104, BUN/Creatinine Ratio 20, Glucose Level 66L, Calcium Level 7.6L Assessment/Plan Assessment/Plan Assessment/Plan Frequent falls Weakness Anemia Dark stools Hyponatremia DM Hyperlipidemia HTN Afib GERD h/o Hemorroids Xarelto Held Follow hemoglobin and transfuse as needed We will continue conservative measures at this time GRECIA SMITH DO 12/19/201913: Subjective Subjective/Events-last exam Patient continues to feel weak. Still having some pain in left hip which is most of her complaint she states. Patient hemoglobin dropped to 7.9. She is going to get transfused today. Patient still with some diarrhea. Start her. Questionable blood. Patient denies nausea vomiting fever sweats chills shortness of breath or chest pain. Objective Exam General Appearance: No Apparent Distress, Chronically ill; No Mild Distress HEENT: PERRL/EOMI, Normal ENT Inspection Neck: Full Range of Motion, Non Tender, Supple Respiratory: Chest Non Tender, No Accessory Muscle Use, No Respiratory Distress Cardiovascular: Regular Rate, Rhythm, No JVD Gastrointestinal: soft; No distended; tenderness (Very minimal discomfort with deep palpation random locations) Extremity: Non Tender, No Calf Tenderness Neurologic/Psychiatric: Alert, Normal Mood/Affect Skin: Warm/Dry, Pallor Lymphatic: No Adenopathy Assessment/Plan Assessment/Plan Assessment/Plan Frequent falls Weakness Anemia Dark stools Hyponatremia DM Hyperlipidemia HTN Afib GERD h/o Hemorroids Xarelto Held Getting transfuse PRBC today. Follow hemoglobin and transfuse as needed We will continue conservative measures at this time to weak for endoscopy at this time. Supervisory-Addendum Brief Verification & Attestation Participated in pt care: history, MDM, physical Personally performed: exam, history, MDM, supervision of care Care discussed with: Medical Student Procedures: n/a Results interpretation: Verified all documentation Verification and Attestation of Medical Student E/M Service A medical student performed and documented this service in my presence. I reviewed and verified all information documented by the medical student and made modifications to such information, when appropriate. I personally performed the physical exam and medical decision making. Grecia Smith, Dec 19, 2020,19:14 PARIS SEPULVEDA Dec 19, 2020 12:22 GRECIA SMITH DO Dec 19, 2020 19:14
[2020-12-19] MEDS: LORATADINE (CLARITIN) 10 MG TAB PO SCH (20:35)
[2020-12-19] MEDS: ALPRAZolam 0.5 MG (XANAX) TAB PO PRN (20:35)
[2020-12-20] VITALS: BP 130/68
[2020-12-20 04:07] VITALS: BP 128/68
[2020-12-20] MEDS: rOPINIRole 0.25 MG (REQUIP) TAB PO SCH ×3 (04:55→20:14)
[2020-12-20] MEDS: NS IV 1000 ML 1,000 ML IV SCH ×2 (05:19→19:59)
[2020-12-20 06:40] LABS: BASOPHILS # (AUTO) 0.1 10^3/uL (0.0-0.1); BASOPHILS % (AUTO) 1 % (0-10); EOSINOPHILS # (AUTO) 0.1 10^3/uL (0.0-0.3); EOSINOPHILS % (AUTO) 1 % (0-10); HEMATOCRIT 39 % (35-52); HEMOGLOBIN 12.9 g/dL (11.5-16.0); LYMPHOCYTES # (AUTO) 0.8 10^3/uL (1.0-4.0); LYMPHOCYTES % (AUTO) 8 % (12-44); MEAN CORPUSCULAR HEMOGLOBIN 30 pg (25-34); MEAN CORPUSCULAR HGB CONC 33 g/dL (32-36); MEAN CORPUSCULAR VOLUME 89 fL (80-99); MONOCYTES % (AUTO) 10 % (0-12); NEUTROPHILS # (AUTO) 7.9 10^3/uL (1.8-7.8); NEUTROPHILS % (AUTO) 80 % (42-75); PLATELET COUNT 278 10^3/uL (130-400); WHITE BLOOD COUNT 9.9 10^3/uL (4.3-11.0)
[2020-12-20 06:47] LABS: POTASSIUM 3.2 MMOL/L (3.6-5.0)
[2020-12-20 06:48] LABS: CALCIUM 8.1 MG/DL (8.5-10.1)
[2020-12-20 06:52] LABS: CREATININE SERUM 0.58 MG/DL (0.60-1.30)
--- NOTE | 2020-12-20 07:38 | Progress Note - Surgery ---
PARIS SEPULVEDA 12/20/20 0738: Subjective Date Seen by a Provider: Dec 20, 2020 Time Seen by a Provider: 07:15 Subjective/Events-last exam Pt skin pallor reduced from yesterday and reports diarrhea, headache, L hip pain, and LLQ abdominal pain with guarding. After 2x blood transfuses at volume 270 yesterday, pt Hgb at 12.9 today. Denies any fever, chills, nausea, vomiting, or chest pain. Objective Exam Vital Signs Date Time Temp Pulse Resp B/P (MAP) Pulse Ox O2 Delivery O2 Flow Rate FiO2 12/20/20 04:07 36.4 62 18 128/68 (88) 96 Room Air 12/20/20 00:00 36.6 59 18 130/68 (88) 92 Room Air 12/19/20 20:41 97 Room Air 12/19/20 20:34 36.1 65 18 130/53 92 Room Air 12/19/20 20:00 36.1 65 18 130/53 (78) 92 Room Air 12/19/20 17:25 36.8 60 18 142/61 92 Room Air 12/19/20 17:08 36.9 60 18 148/68 94 Room Air 12/19/20 16:10 36.4 60 18 148/68 94 Room Air 12/19/20 16:00 36.6 60 18 140/65 (90) 93 Room Air 12/19/20 13:17 36.4 61 16 126/61 95 Room Air 12/19/20 12:54 36.1 60 14 133/60 95 Room Air 12/19/20 12:33 36.1 60 14 123/60 (81) 95 Room Air 12/19/20 08:19 36.4 61 18 136/62 (86) 96 Room Air 12/19/20 08:00 97 Room Air I & O 12/20/20 06:59 Intake Total 2120 ml Output Total 1325 ml Balance 795 ml Capillary Refill : Less Than 3 Seconds General Appearance: No Apparent Distress, Chronically ill HEENT: PERRL/EOMI Neck: Normal Inspection, Non Tender, Supple Respiratory: Chest Non Tender, No Accessory Muscle Use, No Respiratory Distress Cardiovascular: Regular Rate, Rhythm Gastrointestinal: soft, guarding (LLQ), tenderness (LLQ) Extremity: Non Tender, No Calf Tenderness, No Pedal Edema Neurologic/Psychiatric: Alert, Normal Mood/Affect Skin: Warm/Dry, Pallor (Reduced from yesterday) Results Lab Laboratory Tests 12/19/20 20:02: Glucometer 140H 12/20/20 06:24: White Blood Count 9.9, Red Blood Count 4.37, Hemoglobin 12.9#, Hematocrit 39, Mean Corpuscular Volume 89, Mean Corpuscular Hemoglobin 30, Mean Corpuscular Hemoglobin Concent 33, Red Cell Distribution Width 13.8, Platelet Count 278, Mean Platelet Volume 9.0, Immature Granulocyte % (Auto) 1, Neutrophils (%) (Au to) 80H, Lymphocytes (%) (Auto) 8L, Monocytes (%) (Auto) 10, Eosinophils (%) (Auto) 1, Basophils (%) (Auto) 1, Neutrophils # (Auto) 7.9H, Lymphocytes # (Auto) 0.8L, Monocytes # (Auto) 1.0, Eosinophils # (Auto) 0.1, Basophils # (Auto) 0.1, Immature Granulocyte # (Auto) 0.1, Sodium Level 131L, Potassium Level 3.2L, Chloride Level 100, Carbon Dioxide Level 21, Anion Gap 10, Blood Urea Nitrogen 12, Creatinine 0.58L, Estimat Glomerular Filtration Rate 98, BUN/Creatinine Ratio 21, Glucose Level 60*L, Calcium Level 8.1L Assessment/Plan Assessment/Plan Assessment/Plan Frequent falls Weakness Anemia Dark stools Hyponatremia DM Hyperlipidemia HTN Afib GERD h/o Hemorroids Was transfused 2x PRBC yesterday, current Hgb at 12.9 Follow hemoglobin and transfuse as needed We will continue conservative measures at this time Too weak for endoscopy at this time GRECIA SMITH DO 12/20/20 1838: Subjective Subjective/Events-last exam Patient sitting in chair. Patient having more abdominal discomfort today. Seems to be more distended. Transfused prbc 2 units yesterday. Hgb up to 12.9. Having diarrhea that's persistent. Denies n/v fever sweats chills shortess of breath or chest pain. Objective Exam General Appearance: No Apparent Distress, Chronically ill HEENT: PERRL/EOMI Neck: Normal Inspection, Non Tender, Supple Respiratory: Chest Non Tender, No Accessory Muscle Use, No Respiratory Distress Cardiovascular: Regular Rate, Rhythm, No JVD Gastrointestinal: distended; No guarding (LLQ); tenderness (more diffuse) Extremity: Non Tender, No Calf Tenderness Neurologic/Psychiatric: Alert, Normal Mood/Affect Skin: Normal Color, Warm/Dry Lymphatic: No Adenopathy Assessment/Plan Assessment/Plan Assessment/Plan Frequent falls Weakness Anemia Dark stools/diarrhea Hyponatremia DM Hyperlipidemia HTN Afib GERD h/o Hemorroids Was transfused 2x PRBC yesterday, current Hgb at 12.9 Follow hemoglobin and transfuse as needed Obtain KUB check c diff change to clears Too weak for endoscopy at this time Supervisory-Addendum Brief Verification & Attestation Participated in pt care: history, MDM, physical Personally performed: exam, history, MDM, supervision of care Care discussed with: Medical Student Procedures: n/a Results interpretation: Verified all documentation Verification and Attestation of Medical Student E/M Service A medical student performed and documented this service in my presence. I reviewed and verified all information documented by the medical student and made modifications to such information, when appropriate. I personally performed the physical exam and medical decision making. Grecia Smith, Dec 20, 2020,18:45 PARIS SEPULVEDA Dec 20, 2020 07:38 GRECIA SMITH DO Dec 20, 2020 18:38
[2020-12-20 08:00] VITALS: BP 126/69
[2020-12-20] MEDS: DOCUSATE SODIUM 100 MG (COLACE) CAP PO SCH (09:00)
[2020-12-20] MEDS ORDERED: CYANOCOBALAMIN INJ 1000 MCG/ML IM ONE (09:45)
[2020-12-20] MEDS ORDERED: KCL 20 MEQ TAB (K-DUR) PO ONE (09:45)
[2020-12-20] MEDS: AMIODARONE 200 MG (CORDARONE) TAB PO SCH ×2 (09:47→20:14)
[2020-12-20] MEDS: PANTOPRAZOLE 40 MG (PROTONIX) TAB PO SCH (09:48)
[2020-12-20 10:03] LABS: ALBUMIN 2.9 GM/DL (3.2-4.5)
[2020-12-20 10:06] LABS: TOTAL PROTEIN 5.1 GM/DL (6.4-8.2)
--- NOTE | 2020-12-20 10:07 | Physical Therapy Daily Note ---
PT Daily Note-Current Subjective Patient c/o 10/10 abdominal pain. RN notified. Incontinent BM/dependent to cleanse Mental Status Attachments: Mirza Catheter, IV Transfers SCALE: Activities may be completed with or without assistive devices. 5-Vxrdzgirij-bljjzhu completes the activity by him/herself with no assistance from a helper. 5-Set-up or Clean-up Assistance-helper sets up or cleans up; patient completes activity. [place] assists only prior to or following the activity. 4-Supervision or Touching Assistance-helper provides verbal cues and/or touching/steadying and/or contact guard assistance as patient completes activity. Assistance may be provided throughout the activity or intermittently. 3-Partial/Moderate Assistance-helper does LESS THAN HALF the effort. [place] l ifts, holds or supports trunk or limbs, but provides less than half the effort. 2-Substantial/Maximal Assistance-helper does MORE THAN HALF the effort. [place] lifts or holds trunk or limbs and provides more than half the effort. 8-Pebmwsvpe-wdorld does ALL the effort. Patient does none of the effort to complete the activity. Or, the assistance of 2 or more helpers is required for t he patient to complete the activity. If activity was not attempted, code reason: 7-Patient Refused. 9-Not Applicable-not attempted and the patient did not perform the activity before the current illness, exacerbation or injury. 10-Not Attempted due to Environmental Limitations-(lack of equipment, weather restraints, etc.). 88-Not Attempted due to Medical Conditions or Safety Concerns. Roll Left & Right (QC): 2 Lying to Sitting/Side of Bed(Q: 2 Sit to Stand (QC): 3 Chair/Wid-fk-Kdjgl Xfer(QC): 3 Gait Training Distance: 10' Walk 10 feet (QC): 3 Gait Assistive Device: FWW patient adamantly declined to walk a distance Exercises Seated Therapy Exercises: Ankle pumps, Long arc quads Seated Reps: 12 Assessment Patient up in recliner with needs met. Increase activity as tolerated by patient. PT Mcfp Goals Powerplant Operator Goals PT Mcfp Goals Time Frame: Jan 01, 2021 Roll Left & Right (QC): 6 Sit to Lying (QC): 6 Lying-Sitting on Side/Bed(QC): 6 Sit to Stand (QC): 5 Chair/Bum-eo-Azpxl Xfer(QC): 5 Toilet Transfer (QC): 5 Walk 10 feet (QC): 5 Walk 50ft with 2 Turns (QC): 5 Walk 150 ft (QC): 5 PT Plan Treatment/Plan Treatment Plan: Continue Plan of Care Treatment Plan: Bed Mobility, Education, Functional Activity [place], Functional Strength, Gait, Safety, Therapeutic Exercise, Transfers Treatment Duration: Jan 01, 2021 Frequency: 6 times per week Estimated Hrs Per Day: .25 hour per day Time/GCodes Time In: 846 Time Out: 859 Total Billed Treatment Time: 13 Total Billed Treatment 1 visit FA 13 min EDWIN AHUMADA PT Dec 20, 2020 10:07
[2020-12-20 10:08] LABS: BILIRUBIN,TOTAL 1.5 MG/DL (0.1-1.0)
[2020-12-20 10:11] LABS: BILIRUBIN,DIRECT 0.7 MG/DL (0.0-0.3); BILIRUBIN,INDIRECT 0.8 MG/DL
--- NOTE | 2020-12-20 10:54 | Occupational Ther Daily Note ---
OT Current Status-Daily Note Subjective Pt. alert seated in recliner. Pt. agrees to therapy. Mental Status/Objective Patient Orientation: Person, Place, Time, Situation Attachments: Mirza Catheter, IV ADL-Treatment Pt. requesting to get back in bed, passing gas in recliner transferred CGA to commode. Pt. completes BM, requires assist to cleanse buttocks/don brief. Pt. CGA transfer from commode to bed using FWW. EOB to supine independent. Pt. lying in bed, call light/phone in reach. All needs met in room. Therapy Code Descriptions/Definitions Functional [place] Measure: 0=Not Assessed/NA 4=Minimal Assistance 1=Total Assistance 5=Supervision or Setup 2=Maximal Assistance 6=Modified [place] 3=Moderate Assistance 7=Complete IndependenceSCALE: Activities may be completed with or without assistive devices. 3-Piwggomlwg-vklahvy completes the activity by him/herself with no assistance from a helper. 5-Set-up or Clean-up Assistance-helper sets up or cleans up; patient completes activity. [place] assists only prior to or following the activity. 4-Supervision or Touching Assistance-helper provides verbal cues and/or touching/steadying and/or contact guard assistance as patient completes activity. Assistance may be provided throughout the activity or intermittently. 3-Partial/Moderate Assistance-helper does LESS THAN HALF the effort. [place] lifts, holds or supports trunk or limbs, but provides less than half the effort. 2-Substantial/Maximal Assistance-helper does MORE THAN HALF the effort. [place] lifts or holds trunk or limbs and provides more than half the effort. 5-Khcqoobgm-zfgmjr does ALL the effort. Patient does none of the effort to complete the activity. Or, the assistance of 2 or more helpers is required for the patient to complete the activity. If activity was not attempted, code reason: 7-Patient Refused. 9-Not Applicable-not attempted and the patient did not perform the activity before the current illness, exacerbation or injury. 10-Not Attempted due to Environmental Limitations-(lack of equipment, weather restraints, etc.). 88-Not Attempted due to Medical Conditions or Safety Concerns. Toileting Hygiene (QC): 1 (One pt to stabilize and one pt to cleanse.) OT Detention Goals Audio Recording Engineer Goals Time Frame: Dec 29, 2020 Eating (QC): 6 Oral Hygiene (QC): 6 Toileting Hygiene (QC): 6 Shower/Bathe Self (QC): 4 Upper Body Dressing (QC): 5 Lower Body Dressing (QC): 4 On/Off Footwear (QC): 4 Additional Goals: 1-Demonstrate ADL Tasks, 2-Verbalize Understanding, 3- ImproveStrength/[place] 1=Demonstrate adherence to instructed precautions during ADL tasks. 2=Patient will verbalize/demonstrate understanding of assistive devices/modifications for ADL. 3=Patient will improve strength/tolerance for activity to enable patient to perform ADL's. OT Education/Plan Problem List/Assessment Assessment: Decreased Activ Tolerance, Decreased Safety Aware, Impaired Self- Care Skills Discharge Recommendations Plan/Recommendations: Continue POC Treatment Plan/Plan of Care Patient would benefit from OT for education, treatment and training to promote independence in ADL's, mobility, safety and/or upper extremity function for ADL's. Plan of Care: ADL Retraining, Functional Mobility, UE Funct Exercise/Act Treatment Duration: Dec 29, 2020 Frequency: 5 times per week Estimated Hrs Per Day: .25 hour per day Rehab Potential: Fair Time/GCodes Start Time: 09:15 Stop Time: 09:35 Total Time Billed (hr/min): 20 Billed Treatment Time 1 visit- ADL 1 (20 min) LUIZ ENCISO Dec 20, 2020 10:54
[2020-12-20] MEDS: ACETAMINOPHEN 500 MG TAB (TYLENOL) PO PRN ×2 (11:08→20:15)
--- NOTE | 2020-12-20 11:18 | Progress Note - Hospitalist ---
MARILEE BARON 12/20/20 1118: Subjective HPI/CC On Admission Time Seen by Provider: 08:00 Subjective/Events-last exam She reports new onset abdominal pain that is diffuse, but more pronounced in the lower quadrants. She still has Diarrhea and a headache, and still fells cold. Her pain for her left hip is controlled. Her sodium level is 131 and potassium level is 3.2. Review of Systems HEENT: Head Aches Pulmonary: No Dyspnea Cardiovascular: No: Chest Pain Objective Exam Vital Signs Vital Signs Date Time Temp Pulse Resp B/P (MAP) Pulse Ox O2 Delivery O2 Flow Rate FiO2 12/20/20 08:00 36.5 61 18 126/69 (88) 94 Room Air Capillary Refill : Less Than 3 Seconds General Appearance: Mild Distress Respiratory: Lungs Clear Genital/Rectal: Heme Positive Stool Results/Procedures Lab Laboratory Tests 12/20/20 06:24 Patient resulted labs reviewed. Assessment/Plan Assessment and Plan Assess & Plan/Chief Complaint Assessment: Frequent falls Weakness Anemia Dark stools Hyponatremia DM Hyperlipidemia HTN Afib GERD h/o Hemorroids Plan: PT and OT Ordered potassium Chloride, B12 1000mcg. Labs sent for B12 and liver panel. Was transfused 2x PRBC yesterday, current Hgb at 12.9 Follow hemoglobin and transfuse as needed We will continue conservative measures at this time Too weak for endoscopy at this time KIZZY DAWSON DO 12/21/20 0515: Subjective HPI/CC On Admission Date Seen by Provider: Dec 20, 2020 Subjective/Events-last exam Pt has a Hgb of 12.9 S/P two units of blood Surgery consulted and has seen the patient Having more and more melena PT and OT will be ordered but she appears to be pale and frail Pt a bit confused also Review of Systems General: Fatigue, Malaise Objective Exam General Appearance: No Apparent Distress, WD/WN, Anxious, Chronically ill, Obese Respiratory: No Accessory Muscle Use, No Respiratory Distress, Decreased Breath Sounds Cardiovascular: Regular Rate, Rhythm Neurologic/Psychiatric: Alert, Disoriented Assessment/Plan Assessment and Plan Assess & Plan/Chief Complaint Monitor hemoglobin Appreciate general surgery consult Supervisory-Addendum Brief Verification & Attestation Participated in pt care: history, MDM, physical Personally performed: exam, history, MDM, supervision of care Care discussed with: Medical Student Procedures: n/a Results interpretation: Verified all documentation Verification and Attestation of Medical Student E/M Service A medical student performed and documented this service in my presence. I reviewed and verified all information documented by the medical student and made modifications to such information, when appropriate. I personally performed the physical exam and medical decision making. Kizzy Dawson, Dec 21, 2020,05:13 MARILEE BARON Dec 20, 2020 11:18 KIZZY DAWSON DO Dec 21, 2020 05:15
[2020-12-20 12:00] VITALS: BP 126/67
--- NOTE | 2020-12-20 13:07 | Diagnostic Imaging Report ---
INDICATION: Abdominal distention. Comparison made with prior examination 01/29/2019 FINDINGS: The heart size is normal. Pacemaker overlies left hemithorax. There is some patchy bibasilar atelectasis and/or pneumonitis. There is no pneumothorax. Mediastinum is unremarkable. There may be trace bilateral pleural effusions. IMPRESSION: Patchy bibasilar atelectasis and/or pneumonitis and trace bilateral pleural effusions. Dictated by: Dictated on workstation # [id number]
[2020-12-20 16:00] VITALS: BP 160/80
[2020-12-20 19:57] VITALS: BP 170/74
[2020-12-20] MEDS: ALPRAZolam 0.5 MG (XANAX) TAB PO PRN (20:15)
[2020-12-20] MEDS: METHYL SALICYLATE/MENTHOL (BENGAY, MUSCLE RUB) 3 OZ TUBE TP PRN (20:15)
[2020-12-20] MEDS: LORATADINE (CLARITIN) 10 MG TAB PO SCH (20:15)
[2020-12-21] VITALS: BP 137/65
[2020-12-21] MEDS: NS IV 1000 ML 1,000 ML IV SCH ×2 (02:00→13:28)
[2020-12-21 04:00] VITALS: BP 154/71
[2020-12-21 05:57] LABS: BASOPHILS # (AUTO) 0.1 10^3/uL (0.0-0.1); BASOPHILS % (AUTO) 1 % (0-10); EOSINOPHILS # (AUTO) 0.1 10^3/uL (0.0-0.3); EOSINOPHILS % (AUTO) 2 % (0-10); HEMATOCRIT 36 % (35-52); HEMOGLOBIN 11.7 g/dL (11.5-16.0); LYMPHOCYTES # (AUTO) 0.6 10^3/uL (1.0-4.0); LYMPHOCYTES % (AUTO) 7 % (12-44); MEAN CORPUSCULAR HEMOGLOBIN 30 pg (25-34); MEAN CORPUSCULAR HGB CONC 33 g/dL (32-36); MEAN CORPUSCULAR VOLUME 91 fL (80-99); MEAN PLATELET VOLUME 8.6 fL (9.0-12.2); MONOCYTES # (AUTO) 0.8 10^3/uL (0.0-1.0); MONOCYTES % (AUTO) 10 % (0-12); NEUTROPHILS # (AUTO) 6.4 10^3/uL (1.8-7.8); NEUTROPHILS % (AUTO) 79 % (42-75); PLATELET COUNT 203 10^3/uL (130-400); WHITE BLOOD COUNT 8.1 10^3/uL (4.3-11.0)
[2020-12-21 06:12] LABS: ALBUMIN 2.5 GM/DL (3.2-4.5); POTASSIUM 3.4 MMOL/L (3.6-5.0)
[2020-12-21 06:13] LABS: CALCIUM 7.6 MG/DL (8.5-10.1)
[2020-12-21 06:14] LABS: TOTAL PROTEIN 4.3 GM/DL (6.4-8.2)
[2020-12-21] MEDS: KCL 20 MEQ TAB (K-DUR) PO SCH (06:15)
[2020-12-21] MEDS: rOPINIRole 0.25 MG (REQUIP) TAB PO SCH ×3 (06:15→21:51)
[2020-12-21 06:18] LABS: CREATININE SERUM 0.49 MG/DL (0.60-1.30)
[2020-12-21 06:30] LABS: BAND NEUTROPHILS 5 %; LYMPHOCYTES % (MANUAL) 7 %; MONOCYTES % (MANUAL) 8 %; NEUTROPHILS % (MANUAL) 80 %
[2020-12-21 06:31] LABS: BURR CELLS MODERATE
--- NOTE | 2020-12-21 07:45 | Progress Note - Surgery ---
PARIS SEPULVEDA 12/21/20 0745: Subjective Date Seen by a Provider: Dec 21, 2020 Time Seen by a Provider: 07:00 Subjective/Events-last exam Pt reports diarrhea and abdominal pain less than yesterday. On clear liquid diet. Also headache and chronic L hip pain. Denies any fever, chills, vomiting, or chest pain. On exam, abdomen is still mildly distended with some LLQ abdominal pain, but less than yesterday. Objective Exam Vital Signs Date Time Temp Pulse Resp B/P (MAP) Pulse Ox O2 Delivery O2 Flow Rate FiO2 12/21/20 04:00 35.7 59 18 154/71 (98) 91 Room Air 12/21/20 00:00 35.7 60 18 137/65 (89) 91 Room Air 12/20/20 20:36 97 Room Air 12/20/20 19:57 35.6 59 18 170/74 (106) 95 Room Air 12/20/20 16:00 36.1 67 18 160/80 (106) 93 Room Air 12/20/20 12:00 36.1 60 20 126/67 (86) 96 Room Air 12/20/20 08:00 36.5 61 18 126/69 (88) 94 Room Air 12/20/20 08:00 97 Room Air I & O 12/21/20 07:00 Intake Total 1600 ml Output Total 675 ml Balance 925 ml Capillary Refill : Less Than 3 Seconds General Appearance: No Apparent Distress, WD/WN, Chronically ill HEENT: PERRL/EOMI Neck: Normal Inspection, Non Tender, Supple Respiratory: Chest Non Tender, No Accessory Muscle Use, No Respiratory Distress Cardiovascular: Regular Rate, Rhythm Gastrointestinal: distended, tenderness (LLQ) Extremity: Non Tender, No Calf Tenderness, No Pedal Edema Neurologic/Psychiatric: Alert Skin: Normal Color, Warm/Dry Results Lab Laboratory Tests 12/20/20 08:26: Vitamin B12 Level 330 12/20/20 13:33: Lab Scanned Report Transfusion Reaction Form 12/20/20 20:05: Glucometer 75 12/21/20 05:42: Sodium Level 128L, Potassium Level 3.4L, Chloride Level 102, Carbon Dioxide Level 16L, Anion Gap 10, Blood Urea Nitrogen 11, Creatinine 0.49L, Estimat Glomerular Filtration Rate 119, BUN/Creatinine Ratio 22, Glucose Level 80, Calcium Level 7.6L, Corrected Calcium 8.8, Total Bilirubin 1.0, Aspartate Amino Transf (AST/SGOT) 29, Alanine Aminotransferase (ALT/SGPT) 40, Alkaline Phosphatase 62, Total Protein 4.3L, Albumin 2.5L 12/21/20 05:44: White Blood Count 8.1, Red Blood Count 3.92, Hemoglobin 11.7, Hematocrit 36, Mean Corpuscular Volume 91, Mean Corpuscular Hemoglobin 30, Mean Corpuscular Hemoglobin Concent 33, Red Cell Distribution Width 13.7, Platelet Count 203, Mean Platelet Volume 8.6L, Immature Granulocyte % (Auto) 1, Neutrophils (%) (Auto) 79H, Lymphocytes (%) (Auto) 7L, Monocytes (%) (Auto) 10, Eosinophils (%) (Auto) 2, Basophils (%) (Auto) 1, Neutrophils # (Auto) 6.4, Lymphocytes # (Auto) 0.6L, Monocytes # (Auto) 0.8, Eosinophils # (Auto) 0.1, Basophils # (Auto) 0.1, Immature Granulocyte # (Auto) 0.0, Neutrophils % (Manual) 80, Lymphocytes % (Manual) 7, Monocytes % (Manual) 8, Band Neutrophils 5, Reggie Cells MODERATE Microbiology 12/20/20 C. difficile GDH Antigen & Toxins - Final, Complete Assessment/Plan Assessment/Plan Assessment/Plan Frequent falls Weakness Anemia Dark stools/diarrhea Hyponatremia DM Hyperlipidemia HTN Afib GERD h/o Hemorroids Was transfused 2x PRBC yesterday, current Hgb at 12.9 Follow hemoglobin and transfuse as needed Obtain KUB check c diff change to clears Too weak for endoscopy at this time Current Hgb at 11.7 Follow hemoglobin and transfuse as needed Reviewed KUB Reviewed C. diff negative On clear liquid diet Too weak for endoscopy at this time ELIGIO SMITH DO 12/21/202010: Subjective Subjective/Events-last exam Patient with less abdominal pain. She is passing flatus and having less diarrhea. Patien with complaints of headache and left hip pain. She has no other complaints at this time. She is tolerating clear liquids. Denies any nausea vomiting fever sweats chills shortness of breath or chest pain at this time Objective Exam General Appearance: No Apparent Distress, Chronically ill HEENT: PERRL/EOMI, Normal ENT Inspection Neck: Non Tender, Supple Respiratory: Chest Non Tender, No Accessory Muscle Use, No Respiratory Distress Cardiovascular: Regular Rate, Rhythm, No JVD Gastrointestinal: distended (Slight), tenderness (Uncomfortable with palpation diffuselyminimal) Extremity: Non Tender, No Calf Tenderness Neurologic/Psychiatric: Alert, Normal Mood/Affect Skin: Normal Color, Warm/Dry Lymphatic: No Adenopathy Assessment/Plan Assessment/Plan Assessment/Plan Frequent falls Weakness Anemia Dark stools/diarrhea Hyponatremia DM Hyperlipidemia HTN Afib GERD h/o Hemorroids Current Hgb at 11.7 Follow hemoglobin and transfuse as needed Reviewed C. diff negative On clear liquid diet if feeling better tomorrow will advance diet Too weak for endoscopy at this time Supervisory-Addendum Brief Verification & Attestation Participated in pt care: history, MDM, physical Personally performed: exam, history, MDM, supervision of care Care discussed with: Medical Student Procedures: n/a Results interpretation: Verified all documentation Verification and Attestation of Medical Student E/M Service A medical student performed and documented this service in my presence. I reviewed and verified all information documented by the medical student and made modifications to such information, when appropriate. I personally performed the physical exam and medical decision making. Eligio Smith Dec 21, 2020,20:10 PARIS SEPULVEDA Dec 21, 2020 07:45 ELIGIO SMITH DO Dec 21, 2020 20:11
[2020-12-21 08:00] VITALS: BP 149/71
[2020-12-21] MEDS: AMIODARONE 200 MG (CORDARONE) TAB PO SCH ×2 (08:49→21:51)
[2020-12-21] MEDS: PANTOPRAZOLE 40 MG (PROTONIX) TAB PO SCH (08:49)
[2020-12-21] MEDS: DOCUSATE SODIUM 100 MG (COLACE) CAP PO SCH (08:50)
--- NOTE | 2020-12-21 10:51 | Occupational Ther Daily Note ---
OT Current Status-Daily Note Subjective Declines therapy initially, requires encouragement to participate. Appearance Pt left supine in bed, all needs within reach. Mental Status/Objective Patient Orientation: Person, Confused Attachments: IV ADL-Treatment Therapy Code Descriptions/Definitions Functional [place] Measure: 0=Not Assessed/NA 4=Minimal Assistance 1=Total Assistance 5=Supervision or Setup 2=Maximal Assistance 6=Modified [place] 3=Moderate Assistance 7=Complete IndependenceSCALE: Activities may be completed with or without assistive devices. 7-Hmilydftgf-drtjzsn completes the activity by him/herself with no assistance from a helper. 5-Set-up or Clean-up Assistance-helper sets up or cleans up; patient completes activity. [place] assists only prior to or following the activity. 4-Supervision or Touching Assistance-helper provides verbal cues and/or touching/steadying and/or contact guard assistance as patient completes activity. Assistance may be provided throughout the activity or intermittently. 3-Partial/Moderate Assistance-helper does LESS THAN HALF the effort. [place] lifts, holds or supports trunk or limbs, but provides less than half the effort. 2-Substantial/Maximal Assistance-helper does MORE THAN HALF the effort. [place] lifts or holds trunk or limbs and provides more than half the effort. 6-Egjepadub-kqwbiq does ALL the effort. Patient does none of the effort to complete the activity. Or, the assistance of 2 or more helpers is required for the patient to complete the activity. If activity was not attempted, code reason: 7-Patient Refused. 9-Not Applicable-not attempted and the patient did not perform the activity before the current illness, exacerbation or injury. 10-Not Attempted due to Environmental Limitations-(lack of equipment, weather restraints, etc.). 88-Not Attempted due to Medical Conditions or Safety Concerns. Toileting Hygiene (QC): 2 Toilet Transfer (QC): 3 Pt reports being on bedpan at OT arrival. Discussion/education on using commode vs bedpan. Little insight noted. corporate staff accountant notified on having pt use commode. Min a needed to roll R with cues to use bedrail for support. Poor tolerance to maintain sidelying during fabienne care, requires min a. Dep to clean. Pt grimmacing in pain with all bed mobility. Requires mod a and verbal cues to scoot to HOB. Pt declines getting out of bed despite encouragement. She reports fatigue from constant diarrhea. Education OT Patient Education: Correct positioning, Energy conservation, Modified ADL techniques, Progress toward Goal/Update tx plan, Purpose of tx/functional activities, Rehab process, Safety issues, Transfer techniques Teaching Recipient: Patient Teaching Methods: Discussion Response to Teaching: Reinforcement Needed OT Mapping Specialist Goals Mapping Specialist Goals Time Frame: Dec 29, 2020 Eating (QC): 6 Oral Hygiene (QC): 6 Toileting Hygiene (QC): 6 Shower/Bathe Self (QC): 4 Upper Body Dressing (QC): 5 Lower Body Dressing (QC): 4 On/Off Footwear (QC): 4 Additional Goals: 1-Demonstrate ADL Tasks, 2-Verbalize Understanding, 3- ImproveStrength/Regan 1=Demonstrate adherence to instructed precautions during ADL tasks. 2=Patient will verbalize/demonstrate understanding of assistive devices/modifications for ADL. 3=Patient will improve strength/tolerance for activity to enable patient to perform ADL's. OT Education/Plan Problem List/Assessment Assessment: Decreased Activ Tolerance, Decreased Safety Aware, Decreased UE S trength, Impaired Bed Mobility, Impaired Cognition, Impaired Funct Balance, Impaired I ADL's, Impaired Self-Care Skills, Restricted Funct UE ROM Discharge Recommendations Plan/Recommendations: Continue POC Treatment Plan/Plan of Care Treatment,Training & Education: Yes Patient would benefit from OT for education, treatment and training to promote independence in ADL's, mobility, safety and/or upper extremity function for ADL's. Plan of Care: ADL Retraining, Functional Mobility, UE Funct Exercise/Act Treatment Duration: Dec 29, 2020 Frequency: 5 times per week Estimated Hrs Per Day: .25 hour per day Rehab Potential: Fair Time/GCodes Start Time: 10:02 Stop Time: 10:20 Total Time Billed (hr/min): 18 Billed Treatment Time 1 visit, ADL Rosenda Guevara OT Dec 21, 2020 10:51
--- NOTE | 2020-12-21 11:03 | Progress Note - Hospitalist ---
MARILEE BARON 12/21/20 1103: Subjective HPI/CC On Admission Time Seen by Provider: 08:00 Subjective/Events-last exam LLQ pain is improved with mild abdominal distention. Pt has a Hgb of 11.7 down from 12.9 post S/P two units of blood Surgery consulted and has seen the patient Having more and more melena PT and OT will be ordered but she appears to be pale and frail Pt a bit confused also, but she is communicating much better today and is able to provide appropriate responses Objective Exam Vital Signs Vital Signs Date Time Temp Pulse Resp B/P (MAP) Pulse Ox O2 Delivery O2 Flow Rate FiO2 12/21/20 08:00 97 Room Air 12/21/20 08:00 36.6 60 16 149/71 (97) Capillary Refill : Less Than 3 Seconds General Appearance: No Apparent Distress, WD/WN, Chronically ill Respiratory: No Accessory Muscle Use, No Respiratory Distress, Decreased Breath Sounds Cardiovascular: Regular Rate, Rhythm Neurologic/Psychiatric: Alert, Disoriented Results/Procedures Lab Laboratory Tests 12/21/20 05:42 12/21/20 05:44 Patient resulted labs reviewed. Assessment/Plan Assessment and Plan Assess & Plan/Chief Complaint Assessment: Frequent falls Weakness Anemia Dark stools Hyponatremia DM Hyperlipidemia HTN Afib GERD h/o Hemorroids Plan: PT and OT Ordered potassium Chloride, B12 1000mcg. Labs sent for B12 and liver panel. Was transfused 2x PRBC yesterday, current Hgb at 12.9 Follow hemoglobin and transfuse as needed We will continue conservative measures at this time Too weak for endoscopy at this time KIZZY DAWSON DO 12/22/20 0518: Subjective HPI/CC On Admission Date Seen by Provider: Dec 21, 2020 Subjective/Events-last exam Pt about the same Less abdominal pain Vitamin B12 is normal Albumin of 2.5 Sodium level 128 prompting fluid restriction of 1200 CCs Improved confusion but not by a whole lot Review of Systems General: Fatigue Gastrointestinal: Abdominal Pain Neurological: Confusion Objective Exam General Appearance: No Apparent Distress, WD/WN, Chronically ill Respiratory: No Accessory Muscle Use, No Respiratory Distress, Decreased Breath Sounds Cardiovascular: Regular Rate, Rhythm Neurologic/Psychiatric: Alert, Disoriented Assessment/Plan Assessment and Plan Assess & Plan/Chief Complaint PT and OT Monitor hemoglobin Supervisory-Addendum Brief Verification & Attestation Participated in pt care: history, MDM, physical Personally performed: exam, history, MDM, supervision of care Care discussed with: Medical Student Procedures: n/a Results interpretation: Verified all documentation Verification and Attestation of Medical Student E/M Service A medical student performed and documented this service in my presence. I reviewed and verified all information documented by the medical student and made modifications to such information, when appropriate. I personally performed the physical exam and medical decision making. Kizzy Dawson, Dec 22, 2020,05:17 MARILEE BARON Dec 21, 2020 11:03 KIZZY DAWSON DO Dec 22, 2020 05:18
--- NOTE | 2020-12-21 11:42 | Physical Therapy Progress Note ---
Therapy Progress Note Patient adamantly declined PT stating,"I'm not going to get out of this bed. I'm on the bed conway and I don't want to get up." PT attempted to educate patient on importance of OOB activity, however, patient continued to refuse. PT to attempt in a.m. 1 ref ([id number]) EDWIN AHUMADA PT Dec 21, 2020 11:42
[2020-12-21 12:00] VITALS: BP 166/80
[2020-12-21 16:00] VITALS: BP 173/79
[2020-12-21 20:00] VITALS: BP 153/70
[2020-12-21] MEDS: LORATADINE (CLARITIN) 10 MG TAB PO SCH (21:51)
[2020-12-22] VITALS (7 sets, daily range): BP systolic 129–154; BP diastolic 63–77
[2020-12-22] MEDS: ACETAMINOPHEN 500 MG TAB (TYLENOL) PO PRN (03:38)
[2020-12-22 05:52] LABS: BASOPHILS % (AUTO) 0 % (0-10); EOSINOPHILS # (AUTO) 0.1 10^3/uL (0.0-0.3); EOSINOPHILS % (AUTO) 1 % (0-10); HEMATOCRIT 34 % (35-52); HEMOGLOBIN 11.4 g/dL (11.5-16.0); LYMPHOCYTES # (AUTO) 0.5 10^3/uL (1.0-4.0); LYMPHOCYTES % (AUTO) 7 % (12-44); MEAN CORPUSCULAR HEMOGLOBIN 30 pg (25-34); MEAN CORPUSCULAR HGB CONC 34 g/dL (32-36); MEAN CORPUSCULAR VOLUME 87 fL (80-99); MEAN PLATELET VOLUME 8.6 fL (9.0-12.2); MONOCYTES # (AUTO) 0.8 10^3/uL (0.0-1.0); MONOCYTES % (AUTO) 11 % (0-12); NEUTROPHILS # (AUTO) 5.7 10^3/uL (1.8-7.8); NEUTROPHILS % (AUTO) 79 % (42-75); PLATELET COUNT 207 10^3/uL (130-400); WHITE BLOOD COUNT 7.3 10^3/uL (4.3-11.0)
[2020-12-22] MEDS: NS IV 1000 ML 1,000 ML IV SCH ×2 (05:57→21:48)
[2020-12-22] MEDS: KCL 20 MEQ TAB (K-DUR) PO SCH (05:57)
[2020-12-22] MEDS: rOPINIRole 0.25 MG (REQUIP) TAB PO SCH ×3 (05:57→21:28)
[2020-12-22 06:06] LABS: ALBUMIN 2.3 GM/DL (3.2-4.5); POTASSIUM 3.6 MMOL/L (3.6-5.0)
[2020-12-22 06:07] LABS: CALCIUM 7.7 MG/DL (8.5-10.1)
[2020-12-22 06:09] LABS: TOTAL PROTEIN 4.1 GM/DL (6.4-8.2)
[2020-12-22 06:12] LABS: CREATININE SERUM 0.52 MG/DL (0.60-1.30)
--- NOTE | 2020-12-22 07:51 | Progress Note - Surgery ---
PARIS SEPULVEDA 12/22/20 0751: Subjective Date Seen by a Provider: Dec 22, 2020 Time Seen by a Provider: 07:00 Subjective/Events-last exam Pt reports feeling a lot better today and still has complaints of headache, diarrhea, and L hip pain. Hgb at 11.4 today. Denies any fever, chills, nausea, vomiting, or chest pain. Abdomen still slightly distended and tenderness decreased compared to yesterday. Objective Exam Vital Signs Date Time Temp Pulse Resp B/P (MAP) Pulse Ox O2 Delivery O2 Flow Rate FiO2 12/22/20 03:36 35.8 64 20 148/72 (97) 94 Room Air 12/22/20 00:04 35.7 67 20 154/77 (102) 95 Room Air 12/21/20 20:55 Room Air 12/21/20 20:00 36.3 62 18 153/70 (97) 94 Room Air 12/21/20 16:00 35.9 60 18 173/79 (110) 94 Room Air 12/21/20 12:00 36.6 61 18 166/80 (108) 93 Room Air 12/21/20 08:00 97 Room Air 12/21/20 08:00 36.6 60 16 149/71 (97) 92 Room Air I & O 12/22/20 06:59 Intake Total 3265 ml Output Total 1250 ml Balance 2015 ml Capillary Refill : Less Than 3 Seconds General Appearance: No Apparent Distress, WD/WN, Chronically ill HEENT: PERRL/EOMI Neck: Normal Inspection, Non Tender, Supple Respiratory: Chest Non Tender, No Accessory Muscle Use, No Respiratory Distress Cardiovascular: Regular Rate, Rhythm Gastrointestinal: distended (Slight), tenderness (Uncomfortable with palpation diffuselyminimal) Extremity: Non Tender, No Calf Tenderness, No Pedal Edema Neurologic/Psychiatric: Alert, Disoriented Skin: Normal Color, Warm/Dry Results Lab Laboratory Tests 12/21/20 21:36: Glucometer 154H 12/22/20 05:40: White Blood Count 7.3, Red Blood Count 3.86, Hemoglobin 11.4L, Hematocrit 34L, Mean Corpuscular Volume 87, Mean Corpuscular Hemoglobin 30, Mean Corpuscular Hemoglobin Concent 34, Red Cell Distribution Width 13.2, Platelet Count 207, Mean Platelet Volume 8.6L, Immature Granulocyte % (Auto) 1, Neutrophils (%) (Auto) 79H, Lymphocytes (%) (Auto) 7L, Monocytes (%) (Auto) 11, Eosinophils (%) (Auto) 1, Basophils (%) (Auto) 0, Neutrophils # (Auto) 5.7, Lymphocytes # (Auto) 0.5L, Monocytes # (Auto) 0.8, Eosinophils # (Auto) 0.1, Basophils # (Auto) 0.0, Immature Granulocyte # (Auto) 0.1, Sodium Level 127L, Potassium Level 3.6, Chloride Level 100, Carbon Dioxide Level 18L, Anion Gap 9, Blood Urea Nitrogen 9, Creatinine 0.52L, Estimat Glomerular Filtration Rate 111, BUN/Creatinine Ratio 17, Glucose Level 128H, Calcium Level 7.7L, Corrected Calcium 9.1, Total Bilirubin 1.0, Aspartate Amino Transf (AST/SGOT) 25, Alanine Aminotransferase (ALT/SGPT) 36, Alkaline Phosphatase 68, Total Protein 4.1L, Albumin 2.3L Microbiology 12/20/20 C. difficile GDH Antigen & Toxins - Final, Complete Assessment/Plan Assessment/Plan Assessment/Plan Frequent falls Weakness Anemia Dark stools/diarrhea Hyponatremia DM Hyperlipidemia HTN Afib GERD h/o Hemorroids Current Hgb at 11.4 Follow hemoglobin and transfuse as needed On clear liquid diet with fluid restrictions, advance diet as appropriate Too weak for endoscopy at this time GRECIA SMITH DO 12/22/202038: Subjective Subjective/Events-last exam Patient states that she felt a bit better today. Patient abdominal discomfort a lot less. Still with some diarrhea but maybe not as much. Patient still with headache and left hip pain. Hemoglobin 11.4. Patient still feeling weak. No new complaints. Denies any nausea vomiting fever sweats chills shortness of breath or chest pain. Objective Exam General Appearance: No Apparent Distress, Chronically ill HEENT: PERRL/EOMI Neck: Normal Inspection, Non Tender Respiratory: Chest Non Tender, No Accessory Muscle Use, No Respiratory Distress Cardiovascular: Regular Rate, Rhythm, No JVD Gastrointestinal: distended (Slight), tenderness (Uncomfortable with palpation diffuselyminimal, less than yesterday) Neurologic/Psychiatric: Alert, Normal Mood/Affect Skin: Normal Color, Warm/Dry Lymphatic: No Adenopathy Assessment/Plan Assessment/Plan Assessment/Plan Frequent falls Weakness Anemia Dark stools/diarrhea Hyponatremia DM Hyperlipidemia HTN Afib GERD h/o Hemorroids Current Hgb at 11.4 Follow hemoglobin and transfuse as needed Dysphagia 2 diet Too weak for endoscopy at this time Supervisory-Addendum Brief Verification & Attestation Participated in pt care: history, MDM, physical Personally performed: exam, history, MDM, supervision of care Care discussed with: Medical Student Procedures: n/a Results interpretation: Verified all documentation Verification and Attestation of Medical Student E/M Service A medical student performed and documented this service in my presence. I reviewed and verified all information documented by the medical student and made modifications to such information, when appropriate. I personally performed the physical exam and medical decision making. Grecia Smith, Dec 22, 2020,20:39 [place] SEPULVEDA Dec 22, 2020 07:51 GRECIA SMITH DO Dec 22, 2020 20:39
[2020-12-22] MEDS: DOCUSATE SODIUM 100 MG (COLACE) CAP PO SCH (08:18)
[2020-12-22] MEDS: AMIODARONE 200 MG (CORDARONE) TAB PO SCH ×2 (08:18→21:28)
[2020-12-22] MEDS: PANTOPRAZOLE 40 MG (PROTONIX) TAB PO SCH (08:18)
[2020-12-22] MEDS ORDERED: polyethylene glycoL POWDER 17 GM (MIRALAX) PACK PO ONE (10:00)
--- NOTE | 2020-12-22 10:48 | Progress Note - Hospitalist ---
MARILEE BARON 12/22/20 1048: Subjective HPI/CC On Admission Time Seen by Provider: 08:00 Subjective/Events-last exam She is doing better but still complains of abdominal distention, diarrhea, and headache. Her Hemoglobin is 11.4, her sodium level is 127 and her potassium is normal at 3.6. Objective Exam Vital Signs Vital Signs Date Time Temp Pulse Resp B/P (MAP) Pulse Ox O2 Delivery O2 Flow Rate FiO2 12/22/20 08:00 36.3 65 20 153/72 (99) 96 Room Air Capillary Refill : Less Than 3 Seconds General Appearance: WD/WN, Chronically ill Gastrointestinal: Distended Neurologic/Psychiatric: Alert, Disoriented Results/Procedures Lab Laboratory Tests 12/22/20 05:40 Patient resulted labs reviewed. Assessment/Plan Assessment and Plan Assess & Plan/Chief Complaint Assessment: Frequent falls Weakness Anemia Dark stools Hyponatremia DM Hyperlipidemia HTN Afib GERD h/o Hemorroids Plan: PT and OT Hgb of 11.4 that is stabilizing Follow hemoglobin and transfuse as needed We will continue conservative measures at this time Surgery will determine if endoscopy is needed when she regains strength KIZZY DAWSON DO 12/23/20 0454: Subjective HPI/CC On Admission Date Seen by Provider: Dec 22, 2020 Subjective/Events-last exam Pt doing a little better Will DC catheter today Sodium level 127- Normal saline at 60 an hour Potassium 3.6 Abdominal distention is less Still having some [facility] living will be set up in [place] where her family lives Review of Systems General: Fatigue, Malaise Gastrointestinal: Abdominal Pain Neurological: Confusion Objective Exam General Appearance: No Apparent Distress, WD/WN, Chronically ill Respiratory: Lungs Clear, Normal Breath Sounds Cardiovascular: Regular Rate, Rhythm Neurologic/Psychiatric: Alert, Disoriented Assessment/Plan Assessment and Plan Assess & Plan/Chief Complaint Disposition pending Fluid restriction Normal saline at 60 an hour Monitor abdominal pain Supervisory-Addendum Brief Verification & Attestation Participated in pt care: history, MDM, physical Personally performed: exam, history, MDM, supervision of care Care discussed with: Medical Student Procedures: n/a Results interpretation: Verified all documentation Verification and Attestation of Medical Student E/M Service A medical student performed and documented this service in my presence. I re viewed and verified all information documented by the medical student and made modifications to such information, when appropriate. I personally performed the physical exam and medical decision making. Kizzy Dawson, Dec 23, 2020,04:52 MARILEE BARON Dec 22, 2020 10:48 KIZZY DAWSON DO Dec 23, 2020 04:54
--- NOTE | 2020-12-22 12:08 | Occupational Ther Daily Note ---
OT Current Status-Daily Note Subjective Pt apprehensive to participate, requires encouragement. Appearance Left sitting in chair, all needs within reach. RN notified. Mental Status/Objective Patient Orientation: Person, Confused Attachments: Mirza Catheter, IV ADL-Treatment Therapy Code Descriptions/Definitions Functional [place] Measure: 0=Not Assessed/NA 4=Minimal Assistance 1=Total Assistance 5=Supervision or Setup 2=Maximal Assistance 6=Modified [place] 3=Moderate Assistance 7=Complete IndependenceSCALE: Activities may be completed with or without assistive devices. 2-Ybjoqucznf-ieuvgpn completes the activity by him/herself with no assistance from a helper. 5-Set-up or Clean-up Assistance-helper sets up or cleans up; patient completes activity. [place] assists only prior to or following the activity. 4-Supervision or Touching Assistance-helper provides verbal cues and/or touching/steadying and/or contact guard assistance as patient completes activity. Assistance may be provided throughout the activity or intermittently. 3-Partial/Moderate Assistance-helper does LESS THAN HALF the effort. [place] lifts, holds or supports trunk or limbs, but provides less than half the effort. 2-Substantial/Maximal Assistance-helper does MORE THAN HALF the effort. [place] lifts or holds trunk or limbs and provides more than half the effort. 5-Zdbrutmqy-narbzr does ALL the effort. Patient does none of the effort to complete the activity. Or, the assistance of 2 or more helpers is required for the patient to complete the activity. If activity was not attempted, code reason: 7-Patient Refused. 9-Not Applicable-not attempted and the patient did not perform the activity before the current illness, exacerbation or injury. 10-Not Attempted due to Environmental Limitations-(lack of equipment, weather restraints, etc.). 88-Not Attempted due to Medical Conditions or Safety Concerns. Toileting Hygiene (QC): 2 Toilet Transfer (QC): 3 Pt reclined in bed at OT arrival, requires encouragement and education on benefits of participating in therapy. Initially pt wanting to use bed conway, agreeable to use commode post education. Min-mod a to sit EOB. Intermittent min- mod a needed for sitting balance. Only able to sustain static sitting for brief moments before requiring assist/cues for trunk control. Pt often attempting to lay back down as she reports not needing to use toilet anymore. Encouragement to transfer to chair instead. Mod a to stand and maintain balance as she ambulated 2-3 steps towards chair. Poor walker management, assist from therapist required. Cues to ensure chair was behind her prior to sitting. Pt would require assist w ith fabienne care and clothing management secondary to poor balance and endurance. Education OT Patient Education: Correct positioning, Modified ADL techniques, Progress toward Goal/Update tx plan, Purpose of tx/functional activities, Rehab process, Safety issues, Transfer techniques Teaching Recipient: Patient Teaching Methods: Demonstration, Discussion Response to Teaching: Reinforcement Needed OT Senior Living Goals Financial Aid Counselor Goals Time Frame: Dec 29, 2020 Eating (QC): 6 Oral Hygiene (QC): 6 Toileting Hygiene (QC): 6 Shower/Bathe Self (QC): 4 Upper Body Dressing (QC): 5 Lower Body Dressing (QC): 4 On/Off Footwear (QC): 4 Additional Goals: 1-Demonstrate ADL Tasks, 2-Verbalize Understanding, 3-Improv eStrength/Regan 1=Demonstrate adherence to instructed precautions during ADL tasks. 2=Patient will verbalize/demonstrate understanding of assistive devices/modifications for ADL. 3=Patient will improve strength/tolerance for activity to enable patient to p erform ADL's. OT Education/Plan Problem List/Assessment Assessment: Decreased Activ Tolerance, Decreased Safety Aware, Decreased UE Strength, Impaired Bed Mobility, Impaired Cognition, Impaired Funct Balance, I mpaired I ADL's, Impaired Self-Care Skills Discharge Recommendations Plan/Recommendations: Continue POC Therapy Discharge Recommendati: Assisted Living Treatment Plan/Plan of Care Treatment,Training & Education: Yes Patient would benefit from OT for education, treatment and training to promote independence in ADL's, mobility, safety and/or upper extremity function for ADL's. Plan of Care: ADL Retraining, Functional Mobility, UE Funct Exercise/Act Treatment Duration: Dec 29, 2020 Frequency: 5 times per week Estimated Hrs Per Day: .25 hour per day Rehab Potential: Fair Time/GCodes Start Time: 11:25 Stop Time: 11:48 Total Time Billed (hr/min): 23 Billed Treatment Time 1 visit, Rosenda Abbasi OT Dec 22, 2020 12:08
--- NOTE | 2020-12-22 12:24 | Physical Therapy Daily Note ---
PT Daily Note-Current Subjective Pt in recliner w/ family in room upon arrival. Pt states pain 7/10 in L hip. Pt states that she is afraid of falling when standing and that she won't do any more standing today. Mental Status Patient Orientation: Person, Place Transfers SCALE: Activities may be completed with or without assistive devices. 5-Tbxgkuzech-ozbinxl completes the activity by him/herself with no assistance from a helper. 5-Set-up or Clean-up Assistance-helper sets up or cleans up; patient completes activity. [place] assists only prior to or following the activity. 4-Supervision or Touching Assistance-helper provides verbal cues and/or touching/steadying and/or contact guard assistance as patient completes activity. Assistance may be provided throughout the activity or intermittently. 3-Partial/Moderate Assistance-helper does LESS THAN HALF the effort. [place] lifts, holds or supports trunk or limbs, but provides less than half the effort. 2-Substantial/Maximal Assistance-helper does MORE THAN HALF the effort. [place] lifts or holds trunk or limbs and provides more than half the effort. 1-Jodwpbcwp-oulnfi does ALL the effort. Patient does none of the effort to complete the activity. Or, the assistance of 2 or more helpers is required for the patient to complete the activity. If activity was not attempted, code reason: 7-Patient Refused. 9-Not Applicable-not attempted and the patient did not perform the activity before the current illness, exacerbation or injury. 10-Not Attempted due to Environmental Limitations-(lack of equipment, weather restraints, etc.). 88-Not Attempted due to Medical Conditions or Safety Concerns. Sit to Stand (QC): 3 Exercises Seated Therapy Exercises: Ankle pumps, Long arc quads Seated Reps: 10 Treatments Pt sit to stand from recliner x2 w/ U[place]ila, pt held FWW for stabilization. Pt has flexed posture in stance and shakiness in LE. Pt holds static standing for 20 secs x2. Pt then completes seated ex in recliner. Nursing enters room at this time and pt remains in recliner w/ all needs met, call light in hand. Assessment Current Status: Fair Progress Pt self limits d/t fear of falling and pain. PT Hand Potter Goals [facility]sp Goals PT Hand Potter Goals Time Frame: Jan 01, 2021 Roll Left & Right (QC): 6 Sit to Lying (QC): 6 Lying-Sitting on Side/Bed(QC): 6 Sit to Stand (QC): 5 Chair/Rdv-cr-Bqsjp Xfer(QC): 5 Toilet Transfer (QC): 5 Walk 10 feet (QC): 5 Walk 50ft with 2 Turns (QC): 5 Walk 150 ft (QC): 5 PT Plan Treatment/Plan Treatment Plan: Continue Plan of Care Treatment Plan: Bed Mobility, Education, Functional Activity [place]an, Functional Strength, Gait, Safety, Therapeutic Exercise, Transfers Treatment Duration: Jan 01, 2021 Frequency: 6 times per week Estimated Hrs Per Day: .25 hour per day Time/GCodes Time In: 1205 Time Out: 1219 Total Billed Treatment Time: 14 Total Billed Treatment 1, EX JOSE YEH [facility]IO SPECIALIST Dec 22, 2020 12:24
[2020-12-22] MEDS: LORATADINE (CLARITIN) 10 MG TAB PO SCH (21:28)
[2020-12-23 04:00] VITALS: BP 121/60
[2020-12-23] MEDS: KCL 20 MEQ TAB (K-DUR) PO SCH (06:27)
[2020-12-23] MEDS: rOPINIRole 0.25 MG (REQUIP) TAB PO SCH ×3 (06:27→21:30)
[2020-12-23 06:29] LABS: BASOPHILS # (AUTO) 0.1 10^3/uL (0.0-0.1); BASOPHILS % (AUTO) 1 % (0-10); EOSINOPHILS # (AUTO) 0.1 10^3/uL (0.0-0.3); EOSINOPHILS % (AUTO) 1 % (0-10); HEMATOCRIT 34 % (35-52); HEMOGLOBIN 11.6 g/dL (11.5-16.0); LYMPHOCYTES # (AUTO) 0.6 10^3/uL (1.0-4.0); LYMPHOCYTES % (AUTO) 5 % (12-44); MEAN CORPUSCULAR HEMOGLOBIN 30 pg (25-34); MEAN CORPUSCULAR HGB CONC 34 g/dL (32-36); MEAN CORPUSCULAR VOLUME 88 fL (80-99); MEAN PLATELET VOLUME 8.8 fL (9.0-12.2); MONOCYTES # (AUTO) 1.1 10^3/uL (0.0-1.0); MONOCYTES % (AUTO) 11 % (0-12); NEUTROPHILS # (AUTO) 8.6 10^3/uL (1.8-7.8); NEUTROPHILS % (AUTO) 82 % (42-75); PLATELET COUNT 247 10^3/uL (130-400); WHITE BLOOD COUNT 10.5 10^3/uL (4.3-11.0)
--- NOTE | 2020-12-23 06:46 | Progress Note - Surgery ---
PARIS SEPULVEDA 12/23/20 0645: Subjective Date Seen by a Provider: Dec 23, 2020 Time Seen by a Provider: 05:30 Subjective/Events-last exam Pt somnulent and history was mainly obtained through nursing staff. Pt currently has some urine retention and is on dysphagia 2 mechanical soft diet. Reports of same ongoing complaints of L hip pain and headache, but less episodes of diarrhea. Pt briefly woke up disoriented asking where she was and why she was in the hospital, complained of achey back pain, and then went back to sleep. Hbg at 11.6. Objective Exam Vital Signs Date Time Temp Pulse Resp B/P (MAP) Pulse Ox O2 Delivery O2 Flow Rate FiO2 12/23/20 04:00 36.4 60 18 121/60 (80) 91 Room Air 12/22/20 23:30 35.7 60 18 129/63 (85) 94 Room Air 12/22/20 20:35 Room Air 12/22/20 19:41 36.3 59 18 150/76 (100) 94 Room Air 12/22/20 16:00 36.0 60 18 149/70 (96) 96 Room Air 12/22/20 12:00 36.2 64 20 148/77 (100) 96 Room Air 12/22/20 08:00 36.3 65 20 153/72 (99) 96 Room Air 12/22/20 08:00 Room Air I & O 12/23/20 06:59 Intake Total 2090 ml Output Total 550 ml Balance 1540 ml Capillary Refill : Less Than 3 Seconds General Appearance: No Apparent Distress, WD/WN, Chronically ill HEENT: PERRL/EOMI Neck: Normal Inspection, Non Tender Respiratory: Chest Non Tender, Lungs Clear, Normal Breath Sounds, No Accessory Muscle Use, No Respiratory Distress Cardiovascular: Regular Rate, Rhythm Gastrointestinal: non tender, distended (Slight) Extremity: Non Tender, No Calf Tenderness, No Pedal Edema Neurologic/Psychiatric: Alert, Disoriented Skin: Normal Color, Warm/Dry Results Lab Laboratory Tests 12/22/20 20:03: Glucometer 123H 12/23/20 05:50: White Blood Count 10.5, Red Blood Count 3.88, Hemoglobin 11.6, Hematocrit 34L, Mean Corpuscular Volume 88, Mean Corpuscular Hemoglobin 30, Mean Corpuscular Hemoglobin Concent 34, Red Cell Distribution Width 13.4, Platelet Count 247, Mean Platelet Volume 8.8L, Immature Granulocyte % (Auto) 1, Neutrophils (%) (Auto) 82H, Lymphocytes (%) (Auto) 5L, Monocytes (%) (Auto) 11, Eosinophils (%) (Auto) 1, Basophils (%) (Auto) 1, Neutrophils # (Auto) 8.6H, Lymphocytes # (Auto) 0.6L, Monocytes # (Auto) 1.1H, Eosinophils # (Auto) 0.1, Basophils # (Auto) 0.1, Immature Granulocyte # (Auto) 0.1 Microbiology 12/20/20 C. difficile GDH Antigen & Toxins - Final, Complete Assessment/Plan Assessment/Plan Assessment/Plan Frequent falls Weakness Anemia Dark stools/diarrhea Hyponatremia DM Hyperlipidemia HTN Afib GERD h/o Hemorroids Hgb at 11.6 Follow hemoglobin and transfuse as needed Dysphagia 2 diet Too weak for endoscopy at this time GRECIA SMITH DO 12/23/20 1645: Subjective Subjective/Events-last exam Feeling better today. Tolerating diet. Abdominal pain improved compared to yesterday. Denies any new complaints. Hgb stable. Denies n/v fever sweats chills shortness of breath or chest pain at this time. Objective Exam General Appearance: No Apparent Distress, WD/WN, Chronically ill HEENT: PERRL/EOMI, Normal ENT Inspection Neck: Normal Inspection, Non Tender Respiratory: Chest Non Tender, No Accessory Muscle Use, No Respiratory Distress Cardiovascular: Regular Rate, Rhythm, No JVD Gastrointestinal: non tender, soft, distended (minimal) Extremity: Non Tender, No Calf Tenderness Neurologic/Psychiatric: Alert; No Oriented x3 Skin: Normal Color, Warm/Dry Lymphatic: No Adenopathy Assessment/Plan Assessment/Plan Assessment/Plan Frequent falls Weakness Anemia Dark stools/diarrhea Hyponatremia DM Hyperlipidemia HTN Afib GERD h/o Hemorroids Hgb at 11.6 Follow hemoglobin and transfuse as needed Dysphagia 2 diet can advance as tolerates Too weak for endoscopy at this time Supervisory-Addendum Brief Verification & Attestation Participated in pt care: history, MDM, physical Personally performed: exam, history, MDM, supervision of care Care discussed with: Medical Student Procedures: n/a Results interpretation: Verified all documentation Verification and Attestation of Medical Student E/M Service A medical student performed and documented this service in my presence. I reviewed and verified all information documented by the medical student and made modifications to such information, when appropriate. I personally performed the physical exam and medical decision making. Grecia Smith, Dec 23, 2020,16:45 [place] SEPULVEDA Dec 23, 2020 06:45 GRECIA SMITH DO Dec 23, 2020 16:45
[2020-12-23 06:49] LABS: ALBUMIN 2.5 GM/DL (3.2-4.5)
[2020-12-23 06:50] LABS: CALCIUM 7.8 MG/DL (8.5-10.1)
[2020-12-23 06:52] LABS: TOTAL PROTEIN 4.3 GM/DL (6.4-8.2)
[2020-12-23 06:54] LABS: BILIRUBIN,TOTAL 0.7 MG/DL (0.1-1.0)
[2020-12-23 06:55] LABS: CREATININE SERUM 0.49 MG/DL (0.60-1.30)
[2020-12-23 08:00] VITALS: BP_SYST 129; BP_SYST 132; BP_DIAS 64; BP_DIAS 73
[2020-12-23] MEDS: AMIODARONE 200 MG (CORDARONE) TAB PO SCH ×2 (08:34→21:30)
[2020-12-23] MEDS: PANTOPRAZOLE 40 MG (PROTONIX) TAB PO SCH (08:34)
[2020-12-23] MEDS: DOCUSATE SODIUM 100 MG (COLACE) CAP PO SCH (08:35)
[2020-12-23] MEDS ORDERED: SENNOSIDES 8.6 MG (SENOKOT) TAB PO SCH (09:00)
--- NOTE | 2020-12-23 09:58 | Physical Therapy Daily Note ---
PT Daily Note-Current Subjective Patient reluctantly agrees to PT. Mental Status Patient Orientation: Person Attachments: IV Transfers SCALE: Activities may be completed with or without assistive devices. 8-Bnlgxtecco-mgirlrq completes the activity by him/herself with no assistance from a helper. 5-Set-up or Clean-up Assistance-helper sets up or cleans up; patient completes activity. [place] assists only prior to or following the activity. 4-Supervision or Touching Assistance-helper provides verbal cues and/or touching/steadying and/or contact guard assistance as patient completes activity. Assistance may be provided throughout the activity or intermittently. 3-Partial/Moderate Assistance-helper does LESS THAN HALF the effort. [place] lifts, holds or supports trunk or limbs, but provides less than half the effort. 2-Substantial/Maximal Assistance-helper does MORE THAN HALF the effort. [place] lifts or holds trunk or limbs and provides more than half the effort. 7-Pzyoyxhse-xrnufg does ALL the effort. Patient does none of the effort to complete the activity. Or, the assistance of 2 or more helpers is required for the patient to complete the activity. If activity was not attempted, code reason: 7-Patient Refused. 9-Not Applicable-not attempted and the patient did not perform the activity before the current illness, exacerbation or injury. 10-Not Attempted due to Environmental Limitations-(lack of equipment, weather restraints, etc.). 88-Not Attempted due to Medical Conditions or Safety Concerns. Lying to Sitting/Side of Bed(Q: 3 Sit to Stand (QC): 3 Chair/Zed-yg-Udlsw Xfer(QC): 3 Toilet Transfer (QC): 3 Gait Training Does the Patient Walk?: Yes Distance: 20' x 2 Walk 10 feet (QC): 3 Gait Assistive Device: FWW functional gait sequence with FWW use Assessment Patient tolerates minimal activity and is up in recliner with needs met. Patient required assistance to cleanse after BM. Increase activity as tolerated by patient. PT [facility] Goals Washroom Attendant Goals PT Washroom Attendant Goals Time Frame: Jan 01, 2021 Roll Left & Right (QC): 6 Sit to Lying (QC): 6 Lying-Sitting on Side/Bed(QC): 6 Sit to Stand (QC): 5 Chair/Hdl-cq-Ktvsy Xfer(QC): 5 Toilet Transfer (QC): 5 Walk 10 feet (QC): 5 Walk 50ft with 2 Turns (QC): 5 Walk 150 ft (QC): 5 PT Plan Treatment/Plan Treatment Plan: Continue Plan of Care Treatment Plan: Bed Mobility, Education, Functional Activity [place], Functional Strength, Gait, Safety, Therapeutic Exercise, Transfers Treatment Duration: Jan 01, 2021 Frequency: 6 times per week Estimated Hrs Per Day: .25 hour per day Time/GCodes Time In: 913 Time Out: 925 Total Billed Treatment Time: 12 Total Billed Treatment 1 visit FA 12 min EDWIN AHUMADA PT Dec 23, 2020 09:58
[2020-12-23 12:00] VITALS: BP 129/73
--- NOTE | 2020-12-23 12:41 | Occupational Ther Daily Note ---
OT Current Status-Daily Note Subjective Pt. alert in recliner. Pt. c/o pain in L hip, agrees to therapy. Mental Status/Objective Patient Orientation: Person, Confused ADL-Treatment Therapy Code Descriptions/Definitions Functional [place] Measure: 0=Not Assessed/NA 4=Minimal Assistance 1=Total Assistance 5=Supervision or Setup 2=Maximal Assistance 6=Modified [place] 3=Moderate Assistance 7=Complete IndependenceSCALE: Activities may be completed with or without assistive devices. 4-Lerwqlxuqk-leyttfq completes the activity by him/herself with no assistance from a helper. 5-Set-up or Clean-up Assistance-helper sets up or cleans up; patient completes activity. [place] assists only prior to or following the activity. 4-Supervision or Touching Assistance-helper provides verbal cues and/or touching/steadying and/or contact guard assistance as patient completes activity. Assistance may be provided throughout the activity or intermittently. 3-Partial/Moderate Assistance-helper does LESS THAN HALF the effort. [place] lifts, holds or supports trunk or limbs, but provides less than half the effort. 2-Substantial/Maximal Assistance-helper does MORE THAN HALF the effort. [place] lifts or holds trunk or limbs and provides more than half the effort. 2-Kgmlkembw-axqkou does ALL the effort. Patient does none of the effort to complete the activity. Or, the assistance of 2 or more helpers is required for the patient to complete the activity. If activity was not attempted, code reason: 7-Patient Refused. 9-Not Applicable-not attempted and the patient did not perform the activity be fore the current illness, exacerbation or injury. 10-Not Attempted due to Environmental Limitations-(lack of equipment, weather restraints, etc.). 88-Not Attempted due to Medical Conditions or Safety Concerns. Other Treatment Skilled instruction required to adhere to proper technique while Pt. participated in B UE ex's in all planes using medium resistance theraband 5 reps 1 set. Pt. perseverated on hip pain during ex's, unable to focus on task multiple physical and verbal cues required to complete proper technique with ex's. Nursing was notified, made as comfortable as possible in recliner. Pt. lying in recliner call light/phone in reach. All needs met in room. Education OT Patient Education: Correct positioning, Exercise program, Home exercise program Teaching Recipient: Patient Teaching Methods: Demonstration, Discussion Response to Teaching: Verbalize Understanding, Return Demonstration OT Shelter Goals Shelter Goals Time Frame: Dec 29, 2020 Eating (QC): 6 Oral Hygiene (QC): 6 Toileting Hygiene (QC): 6 Shower/Bathe Self (QC): 4 Upper Body Dressing (QC): 5 Lower Body Dressing (QC): 4 On/Off Footwear (QC): 4 Additional Goals: 1-Demonstrate ADL Tasks, 2-Verbalize Understanding, 3- ImproveStrength/[place] 1=Demonstrate adherence to instructed precautions during ADL tasks. 2=Patient will verbalize/demonstrate understanding of assistive devices/modifications for ADL. 3=Patient will improve strength/tolerance for activity to enable patient to perform ADL's. OT Education/Plan Problem List/Assessment Assessment: Decreased Activ Tolerance, Decreased Safety Aware, Decreased UE Strength, Impaired Self-Care Skills, Restricted Funct UE ROM Discharge Recommendations Plan/Recommendations: Continue POC Treatment Plan/Plan of Care Patient would benefit from OT for education, treatment and training to promote independence in ADL's, mobility, safety and/or upper extremity function for ADL's. Plan of Care: ADL Retraining, Functional Mobility, UE Funct Exercise/Act Treatment Duration: Dec 29, 2020 Frequency: 5 times per week Estimated Hrs Per Day: .25 hour per day Rehab Potential: Fair Time/GCodes Start Time: 11:40 Stop Time: 11:57 Total Time Billed (hr/min): 17 Billed Treatment Time 1 visit- EX 1 (17 min) LUIZ ENCISO Dec 23, 2020 12:41
--- NOTE | 2020-12-23 12:54 | Progress Note - Hospitalist ---
MARILEE BARON 12/23/20 1254: Subjective HPI/CC On Admission Time Seen by Provider: 07:45 Subjective/Events-last exam Pt somnulent and history was mainly obtained through nursing staff. Pt currently has some urine retention and is on dysphagia 2 mechanical soft diet. Reports of same ongoing complaints of L hip pain and headache, but less episodes of diarrhea. Pt briefly woke up disoriented asking where she was and why she was in the hospital, complained of achey back pain, and then went back to sleep. Hbg at 11.6 and sodium of 130. Objective Exam Vital Signs Vital Signs Date Time Temp Pulse Resp B/P (MAP) Pulse Ox O2 Delivery O2 Flow Rate FiO2 12/23/20 12:00 36.0 74 18 129/73 (91) 96 Room Air Capillary Refill : Less Than 3 Seconds General Appearance: Chronically ill Respiratory: Normal Breath Sounds, No Accessory Muscle Use, No Respiratory Distress Neurologic/Psychiatric: Alert; No Oriented x3; Disoriented, Other (She is more disoriented then she was yesterday, amnesia as she doesn't remember students that have been seeing her for the past few days) Results/Procedures Lab Laboratory Tests 12/23/20 05:50 Patient resulted labs reviewed. Assessment/Plan Assessment and Plan Assess & Plan/Chief Complaint Assessment: Dysphasia Frequent falls Weakness Anemia Dark stools Hyponatremia DM Hyperlipidemia HTN Afib GERD h/o Hemorroids Plan: Soft diet PT and OT Hgb of 11.4 that is stabilizing Follow hemoglobin and transfuse as needed We will continue conservative measures at this time Surgery determined today that she is too much for endoscopy KIZZY DAWSON DO 12/24/20 0532: Subjective HPI/CC On Admission Date Seen by Provider: Dec 23, 2020 Subjective/Events-last exam Patient much improved per family Patient denies any pain Not really participating in therapy much About the same confusion status Potassium 3.0 replacing that Sodium 130 Review of Systems General: Fatigue, Malaise Objective Exam General Appearance: No Apparent Distress, WD/WN, Chronically ill, Thin Respiratory: Lungs Clear, Decreased Breath Sounds Cardiovascular: Regular Rate, Rhythm Neurologic/Psychiatric: Alert, Disoriented Assessment/Plan Assessment and Plan Assess & Plan/Chief Complaint Patient remained stable Discharge planning Supervisory-Addendum Brief Verification & Attestation Participated in pt care: history, MDM, physical Personally performed: exam, history, MDM, supervision of care Care discussed with: Medical Student Procedures: n/a Results interpretation: Verified all documentation Verification and Attestation of Medical Student E/M Service A medical student performed and documented this service in my presence. I reviewed and verified all information documented by the medical student and made modifications to such information, when appropriate. I personally performed the physical exam and medical decision making. Kizzy Dawson, Dec 24, 2020,05:30 MARILEE BARON Dec 23, 2020 12:54 KIZZY DAWSON DO Dec 24, 2020 05:32
[2020-12-23] MEDS: BETHANECHOL 25 MG (URECHOLINE) TAB PO SCH ×3 (12:57→21:30)
[2020-12-23] MEDS: METHYL SALICYLATE/MENTHOL (BENGAY, MUSCLE RUB) 3 OZ TUBE TP PRN (13:33)
[2020-12-23] MEDS: ACETAMINOPHEN 500 MG TAB (TYLENOL) PO PRN (14:14)
[2020-12-23 15:39] VITALS: BP 119/57
[2020-12-23] MEDS: NS IV 1000 ML 1,000 ML IV SCH ×2 (15:52→21:36)
[2020-12-23 19:30] VITALS: BP 115/59
[2020-12-23] MEDS: MELATONIN 10 MG TABLET PO PRN (21:30)
[2020-12-23] MEDS: LORATADINE (CLARITIN) 10 MG TAB PO SCH (21:30)
[2020-12-23 23:30] VITALS: BP 118/54
[2020-12-24 03:17] VITALS: BP 120/61
[2020-12-24] MEDS: BETHANECHOL 25 MG (URECHOLINE) TAB PO SCH ×4 (06:17→21:27)
[2020-12-24] MEDS: rOPINIRole 0.25 MG (REQUIP) TAB PO SCH ×3 (06:17→21:27)
[2020-12-24] MEDS: KCL 20 MEQ TAB (K-DUR) PO SCH (06:17)
[2020-12-24 06:27] LABS: BASOPHILS % (AUTO) 1 % (0-10); EOSINOPHILS # (AUTO) 0.1 10^3/uL (0.0-0.3); EOSINOPHILS % (AUTO) 2 % (0-10); HEMATOCRIT 30 % (35-52); HEMOGLOBIN 9.9 g/dL (11.5-16.0); LYMPHOCYTES # (AUTO) 0.7 10^3/uL (1.0-4.0); LYMPHOCYTES % (AUTO) 8 % (12-44); MEAN CORPUSCULAR HEMOGLOBIN 30 pg (25-34); MEAN CORPUSCULAR HGB CONC 33 g/dL (32-36); MEAN CORPUSCULAR VOLUME 90 fL (80-99); MONOCYTES # (AUTO) 0.8 10^3/uL (0.0-1.0); MONOCYTES % (AUTO) 9 % (0-12); NEUTROPHILS # (AUTO) 6.8 10^3/uL (1.8-7.8); NEUTROPHILS % (AUTO) 80 % (42-75); PLATELET COUNT 213 10^3/uL (130-400); WHITE BLOOD COUNT 8.6 10^3/uL (4.3-11.0)
[2020-12-24 06:42] LABS: ALBUMIN 2.1 GM/DL (3.2-4.5); POTASSIUM 3.7 MMOL/L (3.6-5.0)
[2020-12-24 06:43] LABS: CALCIUM 7.6 MG/DL (8.5-10.1)
[2020-12-24 06:45] LABS: TOTAL PROTEIN 3.8 GM/DL (6.4-8.2)
[2020-12-24 06:46] LABS: BILIRUBIN,TOTAL 0.5 MG/DL (0.1-1.0)
[2020-12-24 06:48] LABS: CREATININE SERUM 0.57 MG/DL (0.60-1.30)
--- NOTE | 2020-12-24 07:35 | Progress Note - Surgery ---
PARIS SEPULVEDA 12/24/20 0735: Subjective Date Seen by a Provider: Dec 24, 2020 Time Seen by a Provider: 06:15 Subjective/Events-last exam Pt has same complaints of left hip pain. No headache at this time. Denies any chills, nausea, vomiting, diarrhea, or chest pain. Pt had a low grade fever last night. Current Hgb at 9.9. Objective Exam Vital Signs Date Time Temp Pulse Resp B/P (MAP) Pulse Ox O2 Delivery O2 Flow Rate FiO2 12/24/20 03:17 36.4 60 18 120/61 (80) 93 Room Air 12/23/20 23:30 36.2 60 18 118/54 (75) 93 Room Air 12/23/20 20:00 Room Air 12/23/20 19:30 37.6 61 20 115/59 (77) 96 Room Air 12/23/20 15:39 37.3 62 20 119/57 (77) 95 Room Air 12/23/20 12:00 36.0 74 18 129/73 (91) 96 Room Air 12/23/20 08:00 35.5 62 16 132/64 (86) 99 Room Air 12/23/20 08:00 Room Air I & O 12/24/20 06:59 Intake Total 1400 ml Output Total 500 ml Balance 900 ml Capillary Refill : Less Than 3 Seconds General Appearance: No Apparent Distress, WD/WN, Chronically ill, Thin HEENT: PERRL/EOMI Neck: Normal Inspection, Non Tender, Supple Respiratory: Chest Non Tender, No Accessory Muscle Use, No Respiratory Distress Cardiovascular: Regular Rate, Rhythm Gastrointestinal: non tender, soft, distended (minimal) Extremity: Non Tender, No Calf Tenderness, No Pedal Edema Neurologic/Psychiatric: Alert, Disoriented Skin: Warm/Dry Results Lab Laboratory Tests 12/23/20 08:09: Glucometer 53*L 12/23/20 08:41: Glucometer 59*L 12/23/20 09:10: Glucometer 95 12/23/20 21:44: Glucometer 127H 12/24/20 05:50: White Blood Count 8.6, Red Blood Count 3.34L, Hemoglobin 9.9L, Hematocrit 30L, Mean Corpuscular Volume 90, Mean Corpuscular Hemoglobin 30, Mean Corpuscular Hemoglobin Concent 33, Red Cell Distribution Width 13.8, Platelet Count 213, Mean Platelet Volume 9.0, Immature Granulocyte % (Auto) 1, Neutrophils (%) (Auto) 80H, Lymphocytes (%) (Auto) 8L, Monocytes (%) (Auto) 9, Eosinophils (%) (Auto) 2, Basophils (%) (Auto) 1, Neutrophils # (Auto) 6.8, Lymphocytes # (Auto) 0.7L, Monocytes # (Auto) 0.8, Eosinophils # (Auto) 0.1, Basophils # (Auto) 0.0, Immature Granulocyte # (Auto) 0.1, Sodium Level 127L, Potassium Level 3.7, Chloride Level 101, Carbon Dioxide Level 20L, Anion Gap 6, Blood Urea Nitrogen 11, Creatinine 0.57L, Estimat Glomerular Filtration Rate 100, BUN/Creatinine Ratio 19, Glucose Level 111H, Calcium Level 7.6L, Corrected Calcium 9.1, Total Bilirubin 0.5, Aspartate Amino Transf (AST/SGOT) 27, Alanine Aminotransferase (ALT/SGPT) 30, Alkaline Phosphatase 66, Total Protein 3.8L, Albumin 2.1L Microbiology 12/20/20 C. difficile GDH Antigen & Toxins - Final, Complete Assessment/Plan Assessment/Plan Assessment/Plan Frequent falls Weakness Anemia Dark stools/diarrhea Hyponatremia DM Hyperlipidemia HTN Afib GERD h/o Hemorroids Hgb at 9.9 Follow hemoglobin and transfuse as needed Dysphagia 2 diet can advance as tolerates Too weak for endoscopy at this time GRECIA SMITH DO 12/24/20 1547: Subjective Subjective/Events-last exam Still with left hip pain. Hgb 9.9. Tolerating diet. No new complaints. Denies n/v fever sweats chills shortness of breath or chest pain. Objective Exam General Appearance: No Apparent Distress, Chronically ill HEENT: PERRL/EOMI, Normal ENT Inspection Neck: Full Range of Motion, Normal Inspection, Non Tender, Supple Respiratory: Chest Non Tender, No Accessory Muscle Use, No Respiratory Distress Cardiovascular: Regular Rate, Rhythm, No JVD Gastrointestinal: non tender, soft, distended (minimal) Extremity: Non Tender, No Calf Tenderness Neurologic/Psychiatric: Alert, Disoriented Skin: Normal Color, Warm/Dry Lymphatic: No Adenopathy Assessment/Plan Assessment/Plan Assessment/Plan Frequent falls Weakness Anemia Dark stools/diarrhea Hyponatremia DM Hyperlipidemia HTN Afib GERD h/o Hemorroids Hgb at 9.9 Follow hemoglobin and transfuse as needed Dysphagia 2 diet can advance as tolerates Too weak for endoscopy at this time Supervisory-Addendum Brief Verification & Attestation Participated in pt care: history, MDM, physical Personally performed: exam, history, MDM, supervision of care Care discussed with: Medical Student Procedures: n/a Results interpretation: Verified all documentation Verification and Attestation of Medical Student E/M Service A medical student performed and documented this service in my presence. I reviewed and verified all information documented by the medical student and made modifications to such information, when appropriate. I personally performed the physical exam and medical decision making. Grecia Smith, Dec 24, 2020,15:47 PARIS SEPULVEDA Dec 24, 2020 07:35 GRECIA SMITH DO Dec 24, 2020 15:47
[2020-12-24 08:00] VITALS: BP 116/62
[2020-12-24] MEDS: AMIODARONE 200 MG (CORDARONE) TAB PO SCH ×2 (08:24→21:27)
[2020-12-24] MEDS: DOCUSATE SODIUM 100 MG (COLACE) CAP PO SCH (08:24)
[2020-12-24] MEDS: PANTOPRAZOLE 40 MG (PROTONIX) TAB PO SCH (08:24)
[2020-12-24] MEDS ORDERED: SODIUM CHLORIDE 1 GM TABLET PO ONE (11:00)
--- NOTE | 2020-12-24 11:07 | Physical Therapy Daily Note ---
PT Daily Note-Current Subjective Patient reluctantly agrees to PT. Mental Status Attachments: IV Transfers SCALE: Activities may be completed with or without assistive devices. 3-Gqvgzawbog-hqcvzds completes the activity by him/herself with no assistance from a helper. 5-Set-up or Clean-up Assistance-helper sets up or cleans up; patient completes activity. [place] assists only prior to or following the activity. 4-Supervision or Touching Assistance-helper provides verbal cues and/or touching/steadying and/or contact guard assistance as patient completes activity. Assistance may be provided throughout the activity or intermittently. 3-Partial/Moderate Assistance-helper does LESS THAN HALF the effort. [place] lifts, holds or supports trunk or limbs, but provides less than half the effort. 2-Substantial/Maximal Assistance-helper does MORE THAN HALF the effort. [place] lifts or holds trunk or limbs and provides more than half the effort. 2-Xjqucqrmz-blwotb does ALL the effort. Patient does none of the effort to complete the activity. Or, the assistance of 2 or more helpers is required for the patient to complete the activity. If activity was not attempted, code reason: 7-Patient Refused. 9-Not Applicable-not attempted and the patient did not perform the activity before the current illness, exacerbation or injury. 10-Not Attempted due to Environmental Limitations-(lack of equipment, weather restraints, etc.). 88-Not Attempted due to Medical Conditions or Safety Concerns. Lying to Sitting/Side of Bed(Q: 3 Sit to Stand (QC): 3 Chair/Pqo-di-Dmfdu Xfer(QC): 3 Toilet Transfer (QC): 3 assisted patient with cleansing after toileting and changed depends due to incontinence. Gait Training Does the Patient Walk?: Yes Distance: 30'x 2 Walk 10 feet (QC): 3 Gait Assistive Device: FWW slow, steady gait sequence with FWW Exercises Seated Therapy Exercises: Ankle pumps, Long arc quads Seated Reps: 12 Assessment Patient requires time to complete all functional tasks. Patient continues to voice fear of falling with PT reassuring her with use of gait belt and assistance. PT [place] Turret Lathe Operator Goals [place] Turret Lathe Operator Goals PT [place] Turret Lathe Operator Goals Time Frame: Jan 01, 2021 Roll Left & Right (QC): 6 Sit to Lying (QC): 6 Lying-Sitting on Side/Bed(QC): 6 Sit to Stand (QC): 5 Chair/Nyk-vp-Snjcd Xfer(QC): 5 Toilet Transfer (QC): 5 Walk 10 feet (QC): 5 Walk 50ft with 2 Turns (QC): 5 Walk 150 ft (QC): 5 PT Plan Treatment/Plan Treatment Plan: Continue Plan of Care Treatment Plan: Bed Mobility, Education, Functional Activity Regan, Functional Strength, Gait, Safety, Therapeutic Exercise, Transfers Treatment Duration: Jan 01, 2021 Frequency: 6 times per week Estimated Hrs Per Day: .25 hour per day Time/GCodes Time In: 735 Time Out: 800 Total Billed Treatment Time: 25 Total Billed Treatment 1 visit FA x 2 25 min EDWIN AHUMADA PT Dec 24, 2020 11:07
--- NOTE | 2020-12-24 11:29 | Occupational Ther Daily Note ---
OT Current Status-Daily Note Subjective Pt was lying supine in bed upon OT entry. Pt stated she would participate in T- band exercises while seated in bed; even though she was tired. Mental Status/Objective Patient Orientation: Person, Place, Situation Attachments: IV ADL-Treatment Therapy Code Descriptions/Definitions Functional [place] Measure: 0=Not Assessed/NA 4=Minimal Assistance 1=Total Assistance 5=Supervision or Setup 2=Maximal Assistance 6=Modified [place] 3=Moderate Assistance 7=Complete IndependenceSCALE: Activities may be completed with or without assistive devices. 8-Rlcxkqgbek-smplhur completes the activity by him/herself with no assistance from a helper. 5-Set-up or Clean-up Assistance-helper sets up or cleans up; patient completes activity. [place] assists only prior to or following the activity. 4-Supervision or Touching Assistance-helper provides verbal cues and/or touching/steadying and/or contact guard assistance as patient completes activity. Assistance may be provided throughout the activity or intermittently. 3-Partial/Moderate Assistance-helper does LESS THAN HALF the effort. [place] lifts, holds or supports trunk or limbs, but provides less than half the effort. 2-Substantial/Maximal Assistance-helper does MORE THAN HALF the effort. [place] lifts or holds trunk or limbs and provides more than half the effort. 6-Axdwvpair-ekfymv does ALL the effort. Patient does none of the effort to complete the activity. Or, the assistance of 2 or more helpers is required for the patient to complete the activity. If activity was not attempted, code reason: 7-Patient Refused. 9-Not Applicable-not attempted and the patient did not perform the activity before the current illness, exacerbation or injury. 10-Not Attempted due to Environmental Limitations-(lack of equipment, weather restraints, etc.). 88-Not Attempted due to Medical Conditions or Safety Concerns. Other Treatment Pt participated in T-Band BUE exercises w/ medium resistance. Pt performed x5 reps of the following exercises: Shd Abd, Shd Ext. Rotation, Shd Hor. Abd, elbow flexion, and elbow extension. OT provided skilled instruction w/ demonstrations and verbal cues per each exercise. At end of tx session pt was lying supine in bed, w/ call light in reach, and all needs met. Education OT Patient Education: Correct positioning, Energy conservation, Exercise program, Home exercise program, Progress toward Goal/Update tx plan, Purpose of tx/functional activities, Safety issues Teaching Recipient: Patient Teaching Methods: Demonstration, Handout, Discussion Response to Teaching: Verbalize Understanding, Return Demonstration OT Business Services Assistant Goals Group Home Goals Time Frame: Dec 29, 2020 Eating (QC): 6 Oral Hygiene (QC): 6 Toileting Hygiene (QC): 6 Shower/Bathe Self (QC): 4 Upper Body Dressing (QC): 5 Lower Body Dressing (QC): 4 On/Off Footwear (QC): 4 Additional Goals: 1-Demonstrate ADL Tasks, 2-Verbalize Understanding, 3- ImproveStrength/[place] 1=Demonstrate adherence to instructed precautions during ADL tasks. 2=Patient will verbalize/demonstrate understanding of assistive devices/modifications for ADL. 3=Patient will improve strength/tolerance for activity to enable patient to perform ADL's. OT Education/Plan Problem List/Assessment Assessment: Decreased Activ Tolerance, Decreased Safety Aware, Decreased UE Strength, Impaired Coordination, Impaired Funct Balance, Impaired Self-Care Skills Discharge Recommendations Plan/Recommendations: Continue POC Treatment Plan/Plan of Care Patient would benefit from OT for education, treatment and training to promote independence in ADL's, mobility, safety and/or upper extremity function for ADL's. Plan of Care: ADL Retraining, Functional Mobility, UE Funct Exercise/Act Treatment Duration: Dec 29, 2020 Frequency: 5 times per week Estimated Hrs Per Day: .25 hour per day Rehab Potential: Fair Time/GCodes Start Time: 10:39 Stop Time: 10:50 Total Time Billed (hr/min): 11 Billed Treatment Time 1 visit, EX VIKKI CASAREZ OT Dec 24, 2020 11:29
[2020-12-24 12:00] VITALS: BP 138/73
--- NOTE | 2020-12-24 13:03 | Progress Note - Hospitalist ---
MARILEE BARON 12/24/20 1303: Subjective HPI/CC On Admission Time Seen by Provider: 07:45 Subjective/Events-last exam Pt has same complaints of left hip pain. Pt had a low grade fever last night. Current Hgb at 9.9 down from 11.6. Her sodium is 127 and her potassium is normal at 3.7. Objective Exam Vital Signs Vital Signs Date Time Temp Pulse Resp B/P (MAP) Pulse Ox O2 Delivery O2 Flow Rate FiO2 12/24/20 08:00 36.7 60 20 116/62 (80) 91 Room Air Capillary Refill : Less Than 3 Seconds General Appearance: Chronically ill Respiratory: No Accessory Muscle Use, No Respiratory Distress Neurologic/Psychiatric: Alert, Disoriented Results/Procedures Lab Laboratory Tests 12/24/20 05:50 Patient resulted labs reviewed. Assessment/Plan Assessment and Plan Assess & Plan/Chief Complaint Assessment: Dysphasia Frequent falls Weakness Anemia Dark stools Hyponatremia DM Hyperlipidemia HTN Afib GERD h/o Hemorroids Plan: Hep lock and salt tablets PT and OT Hgb of 9.9 monitor Follow hemoglobin and transfuse as needed We will continue conservative measures at this time Surgery determined today that she is too weak for endoscopy KIZZY DAWSON DO 12/25/20 0626: Subjective HPI/CC On Admission Date Seen by Provider: Dec 24, 2020 Subjective/Events-last exam Patient doing about the same Salt tablets started Fluid restriction maintained Sodium 127 Hemoglobin 9.9 Awaiting approval for assisted living Review of Systems General: Fatigue, Malaise Objective Exam General Appearance: No Apparent Distress, WD/WN, Chronically ill, Other (Pale) Respiratory: Lungs Clear Cardiovascular: Regular Rate, Rhythm Neurologic/Psychiatric: Alert, Disoriented Assessment/Plan Assessment and Plan Assess & Plan/Chief Complaint Supportive care Fluid restriction Salt tablets Supervisory-Addendum Brief Verification & Attestation Participated in pt care: history, MDM, physical Personally performed: exam, history, MDM, supervision of care Care discussed with: Medical Student Procedures: n/a Results interpretation: Verified all documentation Verification and Attestation of Medical Student E/M Service A medical student performed and documented this service in my presence. I reviewed and verified all information documented by the medical student and made modifications to such information, when appropriate. I personally performed the physical exam and medical decision making. Kizzy Dawson, Dec 25, 2020,06:25 MARILEE BARON Dec 24, 2020 13:03 KIZZY DAWSON DO Dec 25, 2020 06:26
[2020-12-24 16:00] VITALS: BP 146/63
[2020-12-24 19:26] VITALS: BP 122/56
[2020-12-24] MEDS: SODIUM CHLORIDE 1 GM TABLET PO SCH (21:27)
[2020-12-24] MEDS: LORATADINE (CLARITIN) 10 MG TAB PO SCH (21:27)
[2020-12-24] MEDS: MELATONIN 10 MG TABLET PO PRN (21:27)
[2020-12-24 23:49] VITALS: BP 118/63
[2020-12-25 03:31] VITALS: BP 145/77
[2020-12-25] MEDS: rOPINIRole 0.25 MG (REQUIP) TAB PO SCH ×3 (06:06→21:52)
[2020-12-25] MEDS: BETHANECHOL 25 MG (URECHOLINE) TAB PO SCH ×4 (06:07→21:52)
[2020-12-25] MEDS: KCL 20 MEQ TAB (K-DUR) PO SCH (06:07)
[2020-12-25 07:05] LABS: BASOPHILS # (AUTO) 0.1 10^3/uL (0.0-0.1); BASOPHILS % (AUTO) 1 % (0-10); EOSINOPHILS # (AUTO) 0.1 10^3/uL (0.0-0.3); EOSINOPHILS % (AUTO) 2 % (0-10); HEMATOCRIT 31 % (35-52); HEMOGLOBIN 10.2 g/dL (11.5-16.0); LYMPHOCYTES # (AUTO) 0.7 10^3/uL (1.0-4.0); LYMPHOCYTES % (AUTO) 9 % (12-44); MEAN CORPUSCULAR HEMOGLOBIN 30 pg (25-34); MEAN CORPUSCULAR HGB CONC 33 g/dL (32-36); MEAN CORPUSCULAR VOLUME 89 fL (80-99); MEAN PLATELET VOLUME 8.5 fL (9.0-12.2); MONOCYTES # (AUTO) 0.8 10^3/uL (0.0-1.0); MONOCYTES % (AUTO) 9 % (0-12); NEUTROPHILS # (AUTO) 6.7 10^3/uL (1.8-7.8); NEUTROPHILS % (AUTO) 78 % (42-75); PLATELET COUNT 207 10^3/uL (130-400); WHITE BLOOD COUNT 8.6 10^3/uL (4.3-11.0)
[2020-12-25 07:22] LABS: ALBUMIN 2.4 GM/DL (3.2-4.5); POTASSIUM 3.8 MMOL/L (3.6-5.0)
[2020-12-25 07:24] LABS: CALCIUM 7.7 MG/DL (8.5-10.1)
[2020-12-25 07:25] LABS: TOTAL PROTEIN 4.3 GM/DL (6.4-8.2)
[2020-12-25 07:27] LABS: BILIRUBIN,TOTAL 0.6 MG/DL (0.1-1.0)
[2020-12-25 07:28] LABS: CREATININE SERUM 0.58 MG/DL (0.60-1.30)
--- NOTE | 2020-12-25 07:48 | Progress Note - Hospitalist ---
Subjective HPI/CC On Admission Date Seen by Provider: Dec 25, 2020 Time Seen by Provider: 10:30 Subjective/Events-last exam Patient about the same Labs stable Left arm is swollen and considering her GI bleed I can empirically place her on Lovenox or anticoagulation so we will have to have a stat ultrasound Patient very weak Review of Systems General: Fatigue Musculoskeletal: arm pain Neurological: Confusion Objective Exam Vital Signs Vital Signs Date Time Temp Pulse Resp B/P (MAP) Pulse Ox O2 Delivery O2 Flow Rate FiO2 12/25/20 15:22 36.8 60 24 134/71 (92) 93 Room Air Capillary Refill : Less Than 3 Seconds General Appearance: No Apparent Distress, WD/WN, Chronically ill, Thin Respiratory: Lungs Clear, Normal Breath Sounds Cardiovascular: Regular Rate, Rhythm Extremity: Other (Left upper extremity edema no erythema) Neurologic/Psychiatric: Alert, Oriented x3 Results/Procedures Lab Laboratory Tests 12/25/20 06:59 Patient resulted labs reviewed. Assessment/Plan Assessment and Plan Assess & Plan/Chief Complaint Assessment: GI bleed Dementia Weakness Prior CVA Hyponatremia Acute left arm edema getting ultrasound to rule out DVT Plan: Stat ultrasound Monitor hemoglobin Critical Care Critically Ill Patient DAWSONPERRY ADNIELAdilene QUIROZ Dec 25, 2020 07:48
[2020-12-25 08:00] VITALS: BP 144/70
[2020-12-25] MEDS: DOCUSATE SODIUM 100 MG (COLACE) CAP PO SCH (08:47)
[2020-12-25] MEDS: PANTOPRAZOLE 40 MG (PROTONIX) TAB PO SCH (08:48)
[2020-12-25] MEDS: SODIUM CHLORIDE 1 GM TABLET PO SCH ×2 (08:48→21:52)
[2020-12-25] MEDS: AMIODARONE 200 MG (CORDARONE) TAB PO SCH ×2 (08:48→21:52)
--- NOTE | 2020-12-25 10:43 | Physical Therapy Daily Note ---
PT Daily Note-Current Subjective Pt sleeping, easily awakened. Agreeable to PT with encouragement. 2nd person present for Pt comfort due to fear of falling. With walking Pt keeps stating, "I feel like I could fall at any second". As we were approaching bed, Pt very unsafe, reaching for bed and attempting to sit before completing turn. No response to VCS. Pt adamantly refused up to chair. Pain Location: Left Location Body Site: Hip Comment: Not rated Mental Status Patient Orientation: Person, Confused Transfers SCALE: Activities may be completed with or without assistive devices. 0-Qbtzxbqgey-ejojgqx completes the activity by him/herself with no assistance from a helper. 5-Set-up or Clean-up Assistance-helper sets up or cleans up; patient completes activity. [place] assists only prior to or following the activity. 4-Supervision or Touching Assistance-helper provides verbal cues and/or touching/steadying and/or contact guard assistance as patient completes activity. Assistance may be provided throughout the activity or intermittently. 3-Partial/Moderate Assistance-helper does LESS THAN HALF the effort. [place] lifts, holds or supports trunk or limbs, but provides less than half the effort. 2-Substantial/Maximal Assistance-helper does MORE THAN HALF the effort. [place] lifts or holds trunk or limbs and provides more than half the effort. 1-Qvsiwabth-ccnpuu does ALL the effort. Patient does none of the effort to complete the activity. Or, the assistance of 2 or more helpers is required for the patient to complete the activity. If activity was not attempted, code reason: 7-Patient Refused. 9-Not Applicable-not attempted and the patient did not perform the activity before the current illness, exacerbation or injury. 10-Not Attempted due to Environmental Limitations-(lack of equipment, weather restraints, etc.). 88-Not Attempted due to Medical Conditions or Safety Concerns. Sit to Lying (QC): 4 Lying to Sitting/Side of Bed(Q: 3 Sit to Stand (QC): 4 Pt retropulsive in sitting and initial standing. Minimal correction with VCS, improved with tactile cues. Weight Bearing Right Lower Extremity: Right Full Weight Bearing Left Lower Extremity: Left Full Weight Bearing Gait Training Does the Patient Walk?: Yes Distance: 40 Walk 10 feet (QC): 1 Walk 50 ft with 2 Turns(QC): 88 Walk 150 ft (QC): 88 Walking 10ft/uneven surface-QC: 88 Gait Persons Needed: 2 Gait Assistive Device: FWW Pt ambulated 40' x 1 with FWW. Initially min A x 1 with occasional VCS for posture. When approaching bed, max A x 1 required with additional assist. Pt leaning forearm on walker, reaching outside base of walker for bed with increasing flexed posture, attempting to sit before completing transfer. No correction with max VCS for safety. Treatments Transfer and gait training with FWW. Returned to bed with all needs met, bed alarm activated. Assessment Current Status: Poor Progress Pt self limits due to fear of falling. Unsafe with approach to bed but no response to skilled VCS, tactile cues to improve safety. PT Senior Living Goals [place] Hand Goals PT Senior Living Goals Time Frame: Jan 01, 2021 Roll Left & Right (QC): 6 Sit to Lying (QC): 6 Lying-Sitting on Side/Bed(QC): 6 Sit to Stand (QC): 5 Chair/Qmf-zp-Mqgub Xfer(QC): 5 Toilet Transfer (QC): 5 Walk 10 feet (QC): 5 Walk 50ft with 2 Turns (QC): 5 Walk 150 ft (QC): 5 PT Plan Problem List Problem List: Activity Tolerance, Functional Strength, Safety, Balance, Gait, Transfer, Bed Mobility Treatment/Plan Treatment Plan: Continue Plan of Care Treatment Plan: Bed Mobility, Education, Functional Activity [place]an, Functional Strength, Gait, Safety, Therapeutic Exercise, Transfers Treatment Duration: Jan 01, 2021 Frequency: 6 times per week Estimated Hrs Per Day: .25 hour per day Safety Risks/Education Patient Education: Gait Training, Transfer Techniques Teaching Recipient: Patient Teaching Methods: Discussion Response to Teaching: Unable to Return Demonstration, Reinforcement Needed Importance of OOB, increasing activity, posture with gait. Time/GCodes Time In: 1012 Time Out: 1028 Total Billed Treatment Time: 16 Total Billed Treatment 1, FA x 16' CLAUDIO ELLSWORTH DPT Dec 25, 2020 10:43
--- NOTE | 2020-12-25 11:38 | Progress Note ---
Subjective Date Seen by a Provider: Dec 25, 2020 Time Seen by a Provider: 10:15 Subjective/Events-last exam Patient seen with Dr. Geller. Patient reports doing ok. Does report some LLQ abdominal discomfort. No N/V. Tolerating diet and passing flatus. Objective Exam Vital Signs Date Time Temp Pulse Resp B/P (MAP) Pulse Ox O2 Delivery O2 Flow Rate FiO2 12/25/20 08:04 Room Air 12/25/20 08:00 36.6 60 18 144/70 (94) 92 Room Air 12/25/20 03:31 36.7 60 18 145/77 (99) 92 Room Air 12/24/20 23:49 37.0 60 18 118/63 (81) 91 Room Air 12/24/20 20:00 Room Air 12/24/20 19:26 37.4 60 22 122/56 (78) 91 Room Air 12/24/20 16:00 36.9 60 18 146/63 (90) 91 Room Air 12/24/20 12:00 36.7 60 20 138/73 (94) 94 Room Air I & O 12/25/20 07:00 Intake Total 1652 ml Balance 1652 ml Capillary Refill : Less Than 3 Seconds General Appearance: No Apparent Distress, WD/WN Neck: Normal Inspection, Supple Respiratory: No Accessory Muscle Use, No Respiratory Distress Cardiovascular: Regular Rate, Rhythm, No Edema Gastrointestinal: normal bowel sounds, soft, tenderness (LLQ) Extremity: Normal Inspection, Normal Range of Motion Neurologic/Psychiatric: Alert, Oriented x3 Skin: Normal Color, Warm/Dry Results Lab Laboratory Tests 12/24/20 19:34: Glucometer 158H 12/25/20 06:59: White Blood Count 8.6, Red Blood Count 3.46L, Hemoglobin 10.2L, Hematocrit 31L, Mean Corpuscular Volume 89, Mean Corpuscular Hemoglobin 30, Mean Corpuscular Hemoglobin Concent 33, Red Cell Distribution Width 13.8, Platelet Count 207, Mean Platelet Volume 8.5L, Immature Granulocyte % (Auto) 2, Neutrophils (%) (Auto) 78H, Lymphocytes (%) (Auto) 9L, Monocytes (%) (Auto) 9, Eosinophils (%) (Auto) 2, Basophils (%) (Auto) 1, Neutrophils # (Auto) 6.7, Lymphocytes # (Auto) 0.7L, Monocytes # (Auto) 0.8, Eosinophils # (Auto) 0.1, Basophils # (Auto) 0.1, Immature Granulocyte # (Auto) 0.2H, Sodium Level 128L, Potassium Level 3.8, Chloride Level 100, Carbon Dioxide Level 20L, Anion Gap 8, Blood Urea Nitrogen 11, Creatinine 0.58L, Estimat Glomerular Filtration Rate 98, BUN/Creatinine Ratio 19, Glucose Level 123H, Calcium Level 7.7L, Corrected Calcium 9.0, Total Bilirubin 0.6, Aspartate Amino Transf (AST/SGOT) 29, Alanine Aminotransferase (ALT/SGPT) 34, Alkaline Phosphatase 67, Total Protein 4.3L, Albumin 2.4L 12/25/20 09:56: Glucometer 113H Microbiology 12/20/20 C. difficile GDH Antigen & Toxins - Final, Complete Assessment/Plan Assessment/Plan Assess & Plan/Chief Complaint An 89 year old female with Frequent falls Weakness Anemia Dark stools/diarrhea Hyponatremia DM Hyperlipidemia HTN Afib GERD h/o Hemorroids VSS Hgb at 10.2 Follow hemoglobin and transfuse as needed Dysphagia 2 diet can advance as tolerates Too weak for endoscopy at this time FRANSISCO CALLAHAN RAIL DOWELING MACHINE OPERATOR Dec 25, 2020 11:38
[2020-12-25 12:00] VITALS: BP 147/69
[2020-12-25] MEDS: METHYL SALICYLATE/MENTHOL (BENGAY, MUSCLE RUB) 3 OZ TUBE TP PRN (14:32)
[2020-12-25] MEDS: ACETAMINOPHEN 500 MG TAB (TYLENOL) PO PRN ×2 (14:36→22:11)
[2020-12-25 15:22] VITALS: BP 134/71
--- NOTE | 2020-12-25 15:53 | Diagnostic Imaging Report ---
EXAMINATION: US upper extremity venous duplex left. TECHNIQUE: Multiple real-time grayscale images were obtained over the left upper extremity in various projections. Additional spectral analysis and color Doppler duplex images were also obtained. HISTORY: Swelling COMPARISON: None available. FINDINGS: The left jugular vein, subclavian vein, cephalic vein and axillary vein are patent with normal grayscale and Doppler appearance. The veins of the distal arm are patent. There is normal respiratory variation and augmentation. IMPRESSION: No DVT of the left upper extremity. Dictated by: Dictated on workstation # [id number]
[2020-12-25 19:54] VITALS: BP 150/69
[2020-12-25] MEDS: LORATADINE (CLARITIN) 10 MG TAB PO SCH (21:52)
[2020-12-25] MEDS: ALPRAZolam 0.5 MG (XANAX) TAB PO PRN (22:11)
[2020-12-25] MEDS: MELATONIN 10 MG TABLET PO PRN (22:11)
[2020-12-26 00:15] VITALS: BP 144/70
[2020-12-26 04:12] VITALS: BP 127/69
[2020-12-26 06:06] LABS: ALBUMIN 2.4 GM/DL (3.2-4.5); POTASSIUM 3.5 MMOL/L (3.6-5.0)
[2020-12-26 06:07] LABS: CALCIUM 7.7 MG/DL (8.5-10.1)
[2020-12-26 06:08] LABS: TOTAL PROTEIN 4.3 GM/DL (6.4-8.2)
[2020-12-26 06:10] LABS: BILIRUBIN,TOTAL 0.6 MG/DL (0.1-1.0)
[2020-12-26 06:12] LABS: CREATININE SERUM 0.52 MG/DL (0.60-1.30)
--- NOTE | 2020-12-26 06:34 | Progress Note - Hospitalist ---
Subjective HPI/CC On Admission Date Seen by Provider: Dec 26, 2020 Time Seen by Provider: 11:45 Subjective/Events-last exam Patient doing about the same Left upper extremity ultrasound was negative for DVT Hemoglobin 10.9 Sodium level 129 Blood sugar was low so holding [facility] Review of Systems General: Fatigue Neurological: Confusion Objective Exam Vital Signs Vital Signs Date Time Temp Pulse Resp B/P (MAP) Pulse Ox O2 Delivery O2 Flow Rate FiO2 12/26/20 15:54 34.6 60 18 133/61 (85) 95 Room Air Capillary Refill : Less Than 3 Seconds General Appearance: No Apparent Distress, WD/WN, Chronically ill Respiratory: No Accessory Muscle Use, No Respiratory Distress, Decreased Breath Sounds Cardiovascular: Regular Rate, Rhythm Neurologic/Psychiatric: Alert, Oriented x3, No Motor/Sensory Deficits, Normal Mood/Affect Results/Procedures Lab Laboratory Tests 12/26/20 05:38 12/26/20 06:55 Patient resulted labs reviewed. Assessment/Plan Assessment and Plan Assess & Plan/Chief Complaint Assessment: GI bleed Dementia Weakness Prior CVA Hyponatremia Acute left arm edema negative ultrasound for DVT Hypoglycemia 12/25/2020 Plan: Disposition Hold [facility] Critical Care Critically Ill Patient OSORIO DAWSON DO Dec 26, 2020 06:34
[2020-12-26] MEDS: rOPINIRole 0.25 MG (REQUIP) TAB PO SCH ×3 (06:38→20:35)
[2020-12-26] MEDS: KCL 20 MEQ TAB (K-DUR) PO SCH (06:38)
[2020-12-26] MEDS: BETHANECHOL 25 MG (URECHOLINE) TAB PO SCH ×4 (06:38→20:35)
[2020-12-26 07:34] LABS: BASOPHILS # (AUTO) 0.1 10^3/uL (0.0-0.1); BASOPHILS % (AUTO) 1 % (0-10); EOSINOPHILS # (AUTO) 0.1 10^3/uL (0.0-0.3); EOSINOPHILS % (AUTO) 1 % (0-10); HEMATOCRIT 33 % (35-52); HEMOGLOBIN 10.9 g/dL (11.5-16.0); LYMPHOCYTES # (AUTO) 0.6 10^3/uL (1.0-4.0); LYMPHOCYTES % (AUTO) 6 % (12-44); MEAN CORPUSCULAR HEMOGLOBIN 29 pg (25-34); MEAN CORPUSCULAR HGB CONC 33 g/dL (32-36); MEAN CORPUSCULAR VOLUME 89 fL (80-99); MEAN PLATELET VOLUME 8.7 fL (9.0-12.2); MONOCYTES # (AUTO) 0.9 10^3/uL (0.0-1.0); MONOCYTES % (AUTO) 8 % (0-12); NEUTROPHILS % (AUTO) 83 % (42-75); PLATELET COUNT 271 10^3/uL (130-400); WHITE BLOOD COUNT 10.8 10^3/uL (4.3-11.0)
[2020-12-26 08:00] VITALS: BP 127/69
[2020-12-26] MEDS: DOCUSATE SODIUM 100 MG (COLACE) CAP PO SCH (08:14)
[2020-12-26] MEDS: AMIODARONE 200 MG (CORDARONE) TAB PO SCH ×2 (08:14→20:36)
[2020-12-26] MEDS: SODIUM CHLORIDE 1 GM TABLET PO SCH ×2 (08:14→20:36)
[2020-12-26] MEDS: PANTOPRAZOLE 40 MG (PROTONIX) TAB PO SCH (08:14)
[2020-12-26] MEDS: METHYL SALICYLATE/MENTHOL (BENGAY, MUSCLE RUB) 3 OZ TUBE TP PRN ×2 (10:54→20:36)
[2020-12-26] MEDS: ACETAMINOPHEN 500 MG TAB (TYLENOL) PO PRN ×2 (10:54→18:10)
--- NOTE | 2020-12-26 11:32 | Progress Note ---
Subjective Date Seen by a Provider: Dec 26, 2020 Time Seen by a Provider: 09:35 Subjective/Events-last exam Patient seen with Dr. Geller. Patient reports doing ok. Does report some abdominal tenderness mainly in LLQ. No fever/chills, N/V. Tolerating diet. Objective Exam Vital Signs Date Time Temp Pulse Resp B/P (MAP) Pulse Ox O2 Delivery O2 Flow Rate FiO2 12/26/20 08:00 35.6 60 16 127/69 (88) 96 Room Air 12/26/20 08:00 Room Air 12/26/20 04:12 36.3 59 20 127/69 (88) 94 Room Air 12/26/20 00:15 36.4 61 20 144/70 (94) 91 Room Air 12/25/20 20:10 Room Air 12/25/20 19:54 36.8 60 22 150/69 (96) 92 Room Air 12/25/20 15:22 36.8 60 24 134/71 (92) 93 Room Air 12/25/20 12:00 36.2 62 18 147/69 (95) 91 Room Air I & O 12/26/20 07:00 Intake Total 1140 ml Balance 1140 ml Capillary Refill : Less Than 3 Seconds General Appearance: No Apparent Distress, WD/WN Neck: Normal Inspection, Supple Respiratory: No Accessory Muscle Use, No Respiratory Distress Cardiovascular: Regular Rate, Rhythm, No Edema Gastrointestinal: normal bowel sounds, soft, tenderness (LLQ) Extremity: Normal Inspection, Normal Range of Motion Neurologic/Psychiatric: Alert, Oriented x3 Skin: Normal Color, Warm/Dry Results Lab Laboratory Tests 12/25/20 19:55: Glucometer 143H 12/26/20 05:38: Sodium Level 129L, Potassium Level 3.5L, Chloride Level 98, Carbon Dioxide Level 22, Anion Gap 9, Blood Urea Nitrogen 8, Creatinine 0.52L, Estimat Glomerular Filtration Rate 111, BUN/Creatinine Ratio 15, Glucose Level 50*L, Calcium Level 7.7L, Corrected Calcium 9.0, Total Bilirubin 0.6, Aspartate Amino Transf (AST/SGOT) 29, Alanine Aminotransferase (ALT/SGPT) 33, Alkaline Phosphatase 67, Total Protein 4.3L, Albumin 2.4L 12/26/20 06:55: White Blood Count 10.8, Red Blood Count 3.71L, Hemoglobin 10.9L, Hematocrit 33L, Mean Corpuscular Volume 89, Mean Corpuscular Hemoglobin 29, Mean Corpuscular Hemoglobin Concent 33, Red Cell Distribution Width 13.7, Platelet Count 271, Mean Platelet Volume 8.7L, Immature Granulocyte % (Auto) 2, Neutrophils (%) (Auto) 83H, Lymphocytes (%) (Auto) 6L, Monocytes (%) (Auto) 8, Eosinophils (%) (Auto) 1, Basophils (%) (Auto) 1, Neutrophils # (Auto) 9.0H, Lymphocytes # (Auto) 0.6L, Monocytes # (Auto) 0.9, Eosinophils # (Auto) 0.1, Basophils # (Auto) 0.1, Immature Granulocyte # (Auto) 0.2H 12/26/20 07:32: Glucometer 69L 12/26/20 11:25: Glucometer 85 Microbiology 12/20/20 C. difficile GDH Antigen & Toxins - Final, Complete Assessment/Plan Assessment/Plan Assess & Plan/Chief Complaint An 89 year old female with Frequent falls Weakness Anemia Dark stools/diarrhea Hyponatremia DM Hyperlipidemia HTN Afib GERD h/o Hemorroids VSS Hgb at 10.9 Follow hemoglobin and transfuse as needed Dysphagia 2 diet can advance as tolerates Too weak for endoscopy at this time FRANSISCO CALLAHAN SCRAPER BURRER Dec 26, 2020 11:32
[2020-12-26 12:00] VITALS: BP 125/64
[2020-12-26 15:54] VITALS: BP 133/61
[2020-12-26 20:29] VITALS: BP 139/77
[2020-12-26] MEDS: MELATONIN 10 MG TABLET PO PRN (20:35)
[2020-12-26] MEDS: LORATADINE (CLARITIN) 10 MG TAB PO SCH (20:35)
[2020-12-26] MEDS: SENNA W/DOCUSATE (SENOKOT S) TABLET PO SCH (20:35)
[2020-12-26] MEDS: ALPRAZolam 0.5 MG (XANAX) TAB PO PRN (20:35)
[2020-12-26] MEDS: polyethylene glycoL POWDER 17 GM (MIRALAX) PACK PO SCH (20:35)
[2020-12-27] VITALS (7 sets, daily range): BP systolic 130–175; BP diastolic 66–73
[2020-12-27 05:08] LABS: BASOPHILS # (AUTO) 0.1 10^3/uL (0.0-0.1); BASOPHILS % (AUTO) 0 % (0-10); EOSINOPHILS # (AUTO) 0.1 10^3/uL (0.0-0.3); EOSINOPHILS % (AUTO) 1 % (0-10); HEMATOCRIT 35 % (35-52); HEMOGLOBIN 11.4 g/dL (11.5-16.0); LYMPHOCYTES # (AUTO) 0.7 10^3/uL (1.0-4.0); LYMPHOCYTES % (AUTO) 6 % (12-44); MEAN CORPUSCULAR HEMOGLOBIN 30 pg (25-34); MEAN CORPUSCULAR HGB CONC 33 g/dL (32-36); MEAN CORPUSCULAR VOLUME 90 fL (80-99); MEAN PLATELET VOLUME 8.7 fL (9.0-12.2); MONOCYTES # (AUTO) 0.8 10^3/uL (0.0-1.0); MONOCYTES % (AUTO) 7 % (0-12); NEUTROPHILS # (AUTO) 9.8 10^3/uL (1.8-7.8); NEUTROPHILS % (AUTO) 85 % (42-75); PLATELET COUNT 275 10^3/uL (130-400); WHITE BLOOD COUNT 11.6 10^3/uL (4.3-11.0)
[2020-12-27 05:35] LABS: ALBUMIN 2.6 GM/DL (3.2-4.5); BILIRUBIN,TOTAL 0.6 MG/DL (0.1-1.0); CALCIUM 8.2 MG/DL (8.5-10.1); CREATININE SERUM 0.57 MG/DL (0.60-1.30); POTASSIUM 4.1 MMOL/L (3.6-5.0); TOTAL PROTEIN 4.7 GM/DL (6.4-8.2)
[2020-12-27 05:50] LABS: LYMPHOCYTES % (MANUAL) 5 %; MONOCYTES % (MANUAL) 3 %; NEUTROPHILS % (MANUAL) 92 %; POLYCHROMASIA SLIGHT
[2020-12-27] MEDS: KCL 20 MEQ TAB (K-DUR) PO SCH (06:13)
[2020-12-27] MEDS: rOPINIRole 0.25 MG (REQUIP) TAB PO SCH ×3 (06:13→21:12)
[2020-12-27] MEDS: BETHANECHOL 25 MG (URECHOLINE) TAB PO SCH ×5 (06:13→21:12)
--- NOTE | 2020-12-27 07:39 | Progress Note - Surgery ---
PARIS SEPULVEDA 12/27/20 0739: Subjective Date Seen by a Provider: Dec 27, 2020 Time Seen by a Provider: 06:00 Subjective/Events-last exam Pt reports same complaints of headache, L hip pain, and constipation but had a bowel movement yesterday with no blood. Reports not eating/drinking that well but won't go into detail. Still has LLQ pain and abdomen slightly distended. Hgb at 11.4 today. Objective Exam Vital Signs Date Time Temp Pulse Resp B/P (MAP) Pulse Ox O2 Delivery O2 Flow Rate FiO2 12/27/20 05:01 36.1 60 18 130/73 (92) 94 Room Air 12/27/20 04:00 36.1 60 18 130/73 (92) 94 Room Air 12/27/20 00:30 36.5 60 18 153/72 (99) 99 Room Air 12/26/20 20:29 36.1 60 20 139/77 (97) 90 Room Air 12/26/20 20:20 Room Air 12/26/20 15:54 34.6 60 18 133/61 (85) 95 Room Air 12/26/20 12:00 35.9 60 16 125/64 (84) 97 Room Air 12/26/20 08:00 35.6 60 16 127/69 (88) 96 Room Air 12/26/20 08:00 Room Air I & O 12/27/20 07:00 Intake Total 750 ml Output Total 200 ml Balance 550 ml Capillary Refill : Less Than 3 Seconds General Appearance: No Apparent Distress, WD/WN, Chronically ill HEENT: PERRL/EOMI Neck: Normal Inspection, Non Tender, Supple Respiratory: No Accessory Muscle Use, No Respiratory Distress, Decreased Breath Sounds Cardiovascular: Regular Rate, Rhythm Gastrointestinal: normal bowel sounds, soft, distended (slight), tenderness (LLQ) Extremity: Normal Inspection, Normal Range of Motion Neurologic/Psychiatric: Alert, Oriented x3, No Motor/Sensory Deficits, Normal Mood/Affect Skin: Normal Color, Warm/Dry Results Lab Laboratory Tests 12/26/20 11:25: Glucometer 85 12/26/20 19:48: Glucometer 112H 12/27/20 04:40: White Blood Count 11.6H, Red Blood Count 3.84, Hemoglobin 11.4L, Hematocrit 35, Mean Corpuscular Volume 90, Mean Corpuscular Hemoglobin 30, Mean Corpuscular Hemoglobin Concent 33, Red Cell Distribution Width 13.8, Platelet Count 275, Mean Platelet Volume 8.7L, Immature Granulocyte % (Auto) 1, Neutrophils (%) (Auto) 85H, Lymphocytes (%) (Auto) 6L, Monocytes (%) (Auto) 7, Eosinophils (%) (Auto) 1, Basophils (%) (Auto) 0, Neutrophils # (Auto) 9.8H, Lymphocytes # (Aut o) 0.7L, Monocytes # (Auto) 0.8, Eosinophils # (Auto) 0.1, Basophils # (Auto) 0.1, Immature Granulocyte # (Auto) 0.2H, Neutrophils % (Manual) 92, Lymphocytes % (Manual) 5, Monocytes % (Manual) 3, Polychromasia SLIGHT, Sodium Level 127L, Potassium Level 4.1, Chloride Level 96L, Carbon Dioxide Level 23, Anion Gap 8, Blood Urea Nitrogen 8, Creatinine 0.57L, Estimat Glomerular Filtration Rate 100, BUN/Creatinine Ratio 14, Glucose Level 111H, Calcium Level 8.2L, Corrected Calcium 9.3, Total Bilirubin 0.6, Aspartate Amino Transf (AST/SGOT) 24, Alanine Aminotransferase (ALT/SGPT) 33, Alkaline Phosphatase 82, Total Protein 4.7L, Albumin 2.6L Microbiology 12/20/20 C. difficile GDH Antigen & Toxins - Final, Complete Assessment/Plan Assessment/Plan Assessment/Plan An 89 year old female with Frequent falls Weakness Anemia Dark stools/diarrhea Hyponatremia DM Hyperlipidemia HTN Afib GERD h/o Hemorroids Hgb at 11.4 Follow hemoglobin and transfuse as needed Dysphagia 2 diet can advance as tolerates Too weak for endoscopy at this time GRECIA SMITH DO 12/27/202125: Subjective Subjective/Events-last exam Hemoglobin stable has increased to 11.4. Patient with no new complaints. She is having bowel function. She is tolerating diet. Patient with no family at bedside. Slightly confused. Denies any nausea vomiting fever sweats chills shortness of breath or chest pain. Objective Exam General Appearance: No Apparent Distress, Chronically ill HEENT: PERRL/EOMI, Normal ENT Inspection Neck: Normal Inspection, Non Tender Respiratory: Chest Non Tender, No Accessory Muscle Use, No Respiratory Distress Cardiovascular: Regular Rate, Rhythm, No JVD Gastrointestinal: normal bowel sounds, soft, distended (slight), tenderness (LLQminimal) Extremity: Normal Inspection, Normal Range of Motion Neurologic/Psychiatric: Alert, No Motor/Sensory Deficits, Normal Mood/Affect, Disoriented Skin: Normal Color, Warm/Dry Lymphatic: No Adenopathy Assessment/Plan Assessment/Plan Assessment/Plan Frequent falls Weakness Anemia Dark stools/diarrhea Hyponatremia DM Hyperlipidemia HTN Afib GERD h/o Hemorroids Hgb at 11.4 Follow hemoglobin, has remained stable, transfuse as needed Diet as tolerates Too weak for endoscopy at this time Working on placement Supervisory-Addendum Brief Verification & Attestation Participated in pt care: history, MDM, physical Personally performed: exam, history, MDM, supervision of care Care discussed with: Medical Student Procedures: n/a Results interpretation: Verified all documentation Verification and Attestation of Medical Student E/M Service A medical student performed and documented this service in my presence. I reviewed and verified all information documented by the medical student and made modifications to such information, when appropriate. I personally performed the physical exam and medical decision making. Grecia Smith, Dec 27, 2020,21:26 PARIS SEPULVEDA Dec 27, 2020 07:39 GRECIA SMITH DO Dec 27, 2020 21:26
[2020-12-27] MEDS: PANTOPRAZOLE 40 MG (PROTONIX) TAB PO SCH (08:49)
[2020-12-27] MEDS: AMIODARONE 200 MG (CORDARONE) TAB PO SCH ×2 (08:49→21:12)
[2020-12-27] MEDS: DOCUSATE SODIUM 100 MG (COLACE) CAP PO SCH (08:49)
[2020-12-27] MEDS: SENNA W/DOCUSATE (SENOKOT S) TABLET PO SCH ×2 (08:49→21:12)
[2020-12-27] MEDS: SODIUM CHLORIDE 1 GM TABLET PO SCH ×2 (08:53→21:16)
--- NOTE | 2020-12-27 09:45 | Physical Therapy Daily Note ---
PT Daily Note-Current Subjective Patient reluctantly agrees to PT. Appearance bilateral LE and UE edema with weeping Mental Status Patient Orientation: Person, Time Transfers SCALE: Activities may be completed with or without assistive devices. 1-Dkbwqxftjt-vlbdotg completes the activity by him/herself with no assistance from a helper. 5-Set-up or Clean-up Assistance-helper sets up or cleans up; patient completes activity. [place] assists only prior to or following the activity. 4-Supervision or Touching Assistance-helper provides verbal cues and/or touching/steadying and/or contact guard assistance as patient completes activity. Assistance may be provided throughout the activity or intermittently. 3-Partial/Moderate Assistance-helper does LESS THAN HALF the effort. [place] lifts, holds or supports trunk or limbs, but provides less than half the effort. 2-Substantial/Maximal Assistance-helper does MORE THAN HALF the effort. [place] lifts or holds trunk or limbs and provides more than half the effort. 1-Jfbhkxckk-odwjrj does ALL the effort. Patient does none of the effort to complete the activity. Or, the assistance of 2 or more helpers is required for the patient to complete the activity. If activity was not attempted, code reason: 7-Patient Refused. 9-Not Applicable-not attempted and the patient did not perform the activity before the current illness, exacerbation or injury. 10-Not Attempted due to Environmental Limitations-(lack of equipment, weather restraints, etc.). 88-Not Attempted due to Medical Conditions or Safety Concerns. Sit to Stand (QC): 3 Weight Bearing Right Lower Extremity: Right Full Weight Bearing Left Lower Extremity: Left Full Weight Bearing Gait Training Does the Patient Walk?: Yes Distance: 15' x 4 Walk 10 feet (QC): 2 Gait Assistive Device: FWW trunk and bilateral knee flexed posture with shuffle gait Exercises Seated Therapy Exercises: Long arc quads Seated Reps: 15 Assessment Patient tolerates minimal activity and is up in recliner with needs met. Patient continues to voice fear of falling. Gait belt in place with PT assist. PT Group Home Goals Cage Fighter Goals PT Group Home Goals Time Frame: Jan 01, 2021 Roll Left & Right (QC): 6 Sit to Lying (QC): 6 Lying-Sitting on Side/Bed(QC): 6 Sit to Stand (QC): 5 Chair/Idv-zg-Ltwrp Xfer(QC): 5 Toilet Transfer (QC): 5 Walk 10 feet (QC): 5 Walk 50ft with 2 Turns (QC): 5 Walk 150 ft (QC): 5 PT Plan Treatment/Plan Treatment Plan: Continue Plan of Care Treatment Plan: Bed Mobility, Education, Functional Activity [place], Functional Strength, Gait, Safety, Therapeutic Exercise, Transfers Treatment Duration: Jan 01, 2021 Frequency: 6 times per week Estimated Hrs Per Day: .25 hour per day Time/GCodes Time In: 913 Time Out: 936 Total Billed Treatment Time: 23 Total Billed Treatment 1 visit GT x 2 23 min EDWIN AHUMADA PT Dec 27, 2020 09:45
--- NOTE | 2020-12-27 14:00 | Occupational Ther Daily Note ---
OT Current Status-Daily Note Subjective Pt alert, lying in bed. Nrsg stated that pt had just gotten back into bed. Pt agrees to therapy. No c/o pain. Mental Status/Objective Patient Orientation: Person, Confused Attachments: IV ADL-Treatment Therapy Code Descriptions/Definitions Functional [place] Measure: 0=Not Assessed/NA 4=Minimal Assistance 1=Total Assistance 5=Supervision or Setup 2=Maximal Assistance 6=Modified [place] 3=Moderate Assistance 7=Complete IndependenceSCALE: Activities may be completed with or without assistive devices. 2-Sctlhimsnx-zpblndo completes the activity by him/herself with no assistance from a helper. 5-Set-up or Clean-up Assistance-helper sets up or cleans up; patient completes activity. [place] assists only prior to or following the activity. 4-Supervision or Touching Assistance-helper provides verbal cues and/or touching/steadying and/or contact guard assistance as patient completes activi ty. Assistance may be provided throughout the activity or intermittently. 3-Partial/Moderate Assistance-helper does LESS THAN HALF the effort. [place] lifts, holds or supports trunk or limbs, but provides less than half the effort. 2-Substantial/Maximal Assistance-helper does MORE THAN HALF the effort. [place] lifts or holds trunk or limbs and provides more than half the effort. 5-Cmrmioyts-gnziob does ALL the effort. Patient does none of the effort to complete the activity. Or, the assistance of 2 or more helpers is required for the patient to complete the activity. If activity was not attempted, code reason: 7-Patient Refused. 9-Not Applicable-not attempted and the patient did not perform the activity before the current illness, exacerbation or injury. 10-Not Attempted due to Environmental Limitations-(lack of equipment, weather restraints, etc.). 88-Not Attempted due to Medical Conditions or Safety Concerns. Other Treatment Requires skilled instruction to complete B UE strengthening exercises with and without medium resistance theraband. VC and gestural cues to complete 2 theraband exercises, horizontal shldr abd/add and rows. B shldr flexion with bicep flexion to reach up and touch head 10x's. Completed making fist and extending fingers to increase strength and decrease edema in L hand. Finger opposition with L hand, AAROM 10x's, AROM with R hand. After therapy, pt lying in bed with call light/phone in reach. All needs met in room. OT Vehicle And Equipment Cleaner Goals Skilled Nursing Goals Time Frame: Dec 29, 2020 Eating (QC): 6 Oral Hygiene (QC): 6 Toileting Hygiene (QC): 6 Shower/Bathe Self (QC): 4 Upper Body Dressing (QC): 5 Lower Body Dressing (QC): 4 On/Off Footwear (QC): 4 Additional Goals: 1-Demonstrate ADL Tasks, 2-Verbalize Understanding, 3- ImproveStrength/[place] 1=Demonstrate adherence to instructed precautions during ADL tasks. 2=Patient will verbalize/demonstrate understanding of assistive devices/modifications for ADL. 3=Patient will improve strength/tolerance for activity to enable patient to perform ADL's. OT Education/Plan Problem List/Assessment Assessment: Decreased Activ Tolerance Discharge Recommendations Plan/Recommendations: Continue POC Treatment Plan/Plan of Care Patient would benefit from OT for education, treatment and training to promote independence in ADL's, mobility, safety and/or upper extremity function for ADL's. Plan of Care: ADL Retraining, Functional Mobility, UE Funct Exercise/Act Treatment Duration: Dec 29, 2020 Frequency: 5 times per week Estimated Hrs Per Day: .25 hour per day Rehab Potential: Fair Time/GCodes Start Time: 13:30 Stop Time: 13:45 Total Time Billed (hr/min): 15 Billed Treatment Time 1 visit-EX 1 (15 min) LUIZ ENCISO Dec 27, 2020 13:59
--- NOTE | 2020-12-27 14:16 | Progress Note ---
Subjective Subjective/Events-last exam Patient stable this AM. No acute concerns. Pleasantly demented. Alert to person and place. Tolerating PO diet. Continues on fluid restriction. Review of Systems Pulmonary: No Dyspnea, No Cough Cardiovascular: Edema; No: Chest Pain, Palpitations Gastrointestinal: No: Nausea, Vomiting, Abdominal Pain Neurological: Weakness, Incoordination Objective Exam Last Set of Vital Signs Vital Signs Date Time Temp Pulse Resp B/P (MAP) Pulse Ox O2 Delivery O2 Flow Rate FiO2 12/27/20 12:00 35.9 59 16 134/66 (88) 94 Room Air Capillary Refill : Less Than 3 Seconds I&O Intake and Output 12/27/20 00:00 Intake Total 1100 ml Balance 1100 ml Intake Oral 1100 ml # Voids 10 General: Alert (Oriented x2) Lungs: Clear to Auscultation, Normal Air Movement Heart: Regular Rate, No Murmurs Abdomen: Normal Bowel Sounds, Soft, No Tenderness, No Masses Extremities: Other (1+ pitting edema bilaterally) Neuro: Normal Speech, Sensation Intact, Cranial Nerves 3-12 NL Psych/Mental Status: Mental Status NL, Mood NL Results/Procedures Lab Laboratory Tests 12/26/20 19:48: Glucometer 112H 12/27/20 04:40: White Blood Count 11.6H, Red Blood Count 3.84, Hemoglobin 11.4L, Hematocrit 35, Mean Corpuscular Volume 90, Mean Corpuscular Hemoglobin 30, Mean Corpuscular Hemoglobin Concent 33, Red Cell Distribution Width 13.8, Platelet Count 275, Mean Platelet Volume 8.7L, Immature Granulocyte % (Auto) 1, Neutrophils (%) (Auto) 85H, Lymphocytes (%) (Auto) 6L, Monocytes (%) (Auto) 7, Eosinophils (%) (Auto) 1, Basophils (%) (Auto) 0, Neutrophils # (Auto) 9.8H, Lymphocytes # (Auto) 0.7L, Monocytes # (Auto) 0.8, Eosinophils # (Auto) 0.1, Basophils # (Auto) 0.1, Immature Granulocyte # (Auto) 0.2H, Neutrophils % (Manual) 92, Lymphocytes % (Manual) 5, Monocytes % (Manual) 3, Polychromasia SLIGHT, Sodium Level 127L, Potassium Level 4.1, Chloride Level 96L, Carbon Dioxide Level 23, Anion Gap 8, Blood Urea Nitrogen 8, Creatinine 0.57L, Estimat Glomerular Filtration Rate 100, BUN/Creatinine Ratio 14, Glucose Level 111H, Calcium Level 8.2L, Corrected Calcium 9.3, Total Bilirubin 0.6, Aspartate Amino Transf (AST/SGOT) 24, Alanine Aminotransferase (ALT/SGPT) 33, Alkaline Phosphatase 82, Total Protein 4.7L, Albumin 2.6L 12/27/20 08:55: Glucometer 153H Microbiology 12/20/20 C. difficile GDH Antigen & Toxins - Final, Complete Radiology Pelvis/Hip x-ray: IMPRESSION: No identified acute bony abnormality of the pelvis or left hip. Assessment/Plan Assessment/Plan (1) GI bleed Status: Chronic Assessment & Plan: 12/27: Hgb stable, no signs of further acute bleeding Qualifiers: Qualified Codes: K92.2 - Gastrointestinal hemorrhage, unspecified (2) Frequent falls Status: Acute Assessment & Plan: Uncertain if progression of baseline debility or other cause, no clear evidence of infection currently. Family possibly working on assisted living for d/c. Social work consulted. 12/27: SNF placement pending, family prefers [facility] placement (3) Weakness Status: Acute Assessment & Plan: PT (4) Hyponatremia Status: Acute Assessment & Plan: Improving, monitor. 12/27: Continue fluid restriction (5) Diabetes mellitus Status: Chronic Qualifiers: (6) Hyperlipidemia Status: Chronic Qualifiers: Qualified Codes: E78.5 - Hyperlipidemia, unspecified (7) Hypertension Status: Chronic Qualifiers: Qualified Codes: I10 - Essential (primary) hypertension (8) Atrial fibrillation Status: Chronic Assessment & Plan: 12/27: Off OAC at this time due to acute GI bleeding Qualifiers: Qualified Codes: I48.0 - Paroxysmal atrial fibrillation (9) GERD (gastroesophageal reflux disease) Status: Chronic RENATO DUPONT MD Dec 27, 2020 14:16
[2020-12-27] MEDS: MELATONIN 10 MG TABLET PO PRN (21:12)
[2020-12-27] MEDS: polyethylene glycoL POWDER 17 GM (MIRALAX) PACK PO SCH (21:12)
[2020-12-27] MEDS: LORATADINE (CLARITIN) 10 MG TAB PO SCH (21:12)
[2020-12-27] MEDS: ALPRAZolam 0.5 MG (XANAX) TAB PO PRN (21:12)
[2020-12-28] VITALS: BP_SYST 136; BP_DIAS 58; BP_DIAS 78
[2020-12-28 04:23] VITALS: BP 136/58
[2020-12-28] MEDS: BETHANECHOL 25 MG (URECHOLINE) TAB PO SCH ×2 (06:36→13:25)
[2020-12-28] MEDS: KCL 20 MEQ TAB (K-DUR) PO SCH (06:36)
[2020-12-28] MEDS: rOPINIRole 0.25 MG (REQUIP) TAB PO SCH ×2 (06:36→13:25)
[2020-12-28 06:40] LABS: BASOPHILS # (AUTO) 0.1 10^3/uL (0.0-0.1); BASOPHILS % (AUTO) 0 % (0-10); EOSINOPHILS % (AUTO) 0 % (0-10); HEMATOCRIT 41 % (35-52); HEMOGLOBIN 13.9 g/dL (11.5-16.0); LYMPHOCYTES # (AUTO) 0.3 10^3/uL (1.0-4.0); LYMPHOCYTES % (AUTO) 1 % (12-44); MEAN CORPUSCULAR HEMOGLOBIN 30 pg (25-34); MEAN CORPUSCULAR HGB CONC 34 g/dL (32-36); MEAN CORPUSCULAR VOLUME 89 fL (80-99); MEAN PLATELET VOLUME 8.4 fL (9.0-12.2); MONOCYTES # (AUTO) 1.4 10^3/uL (0.0-1.0); MONOCYTES % (AUTO) 5 % (0-12); NEUTROPHILS # (AUTO) 27.1 10^3/uL (1.8-7.8); NEUTROPHILS % (AUTO) 93 % (42-75); PLATELET COUNT 306 10^3/uL (130-400); WHITE BLOOD COUNT 29.3 10^3/uL (4.3-11.0)
[2020-12-28 07:10] LABS: ALBUMIN 3.3 GM/DL (3.2-4.5); BILIRUBIN,TOTAL 1.2 MG/DL (0.1-1.0); CALCIUM 9.2 MG/DL (8.5-10.1); CREATININE SERUM 0.66 MG/DL (0.60-1.30); POTASSIUM 4.2 MMOL/L (3.6-5.0); TOTAL PROTEIN 6.1 GM/DL (6.4-8.2)
[2020-12-28 07:27] LABS: BAND NEUTROPHILS 10 %; LYMPHOCYTES % (MANUAL) 3 %; MONOCYTES % (MANUAL) 3 %; NEUTROPHILS % (MANUAL) 84 %; RBC MORPH NORMAL; TOXIC GRANULATION/VACUOLAZATIO 1+
[2020-12-28 07:41] VITALS: BP 146/65
--- NOTE | 2020-12-28 07:41 | Progress Note - Surgery ---
PARIS SEPULVEDA 12/28/20 0741: Subjective Date Seen by a Provider: Dec 28, 2020 Time Seen by a Provider: 07:15 Subjective/Events-last exam Pt somnulent at this time. Pt reports some projectile vomiting after she ate some food this morning. Reports BM. Denies any fever, chills, nausea, diarrhea, or chest pain. Objective Exam Vital Signs Date Time Temp Pulse Resp B/P (MAP) Pulse Ox O2 Delivery O2 Flow Rate FiO2 12/28/20 04:23 36.2 68 21 136/58 (84) 100 Room Air 12/28/20 00:00 36.5 60 19 136/78 (97) 93 Room Air 12/27/20 20:59 Room Air 12/27/20 20:00 36.2 64 20 142/71 (94) 96 Room Air 12/27/20 16:00 36.2 65 18 137/71 (93) 93 Room Air 12/27/20 12:00 35.9 59 16 134/66 (88) 94 Room Air 12/27/20 08:00 36.3 66 18 175/66 (102) 94 Room Air 12/27/20 08:00 Room Air I & O 12/28/20 07:00 Intake Total 850 ml Output Total 1150 ml Balance -300 ml Capillary Refill : Less Than 3 Seconds General Appearance: No Apparent Distress, Chronically ill HEENT: PERRL/EOMI Neck: Non Tender, Supple Respiratory: Chest Non Tender, No Accessory Muscle Use, No Respiratory Distress Cardiovascular: Regular Rate, Rhythm Gastrointestinal: soft, distended (slight), tenderness (diffuse, minimal) Extremity: Normal Inspection, Non Tender, No Calf Tenderness, No Pedal Edema Neurologic/Psychiatric: Alert, No Motor/Sensory Deficits, Normal Mood/Affect, Disoriented Skin: Normal Color, Warm/Dry Results Lab Laboratory Tests 12/27/20 08:55: Glucometer 153H 12/27/20 20:11: Glucometer 164H 12/28/20 06:35: White Blood Count 29.3H, Red Blood Count 4.59, Hemoglobin 13.9#, Hematocrit 41, Mean Corpuscular Volume 89, Mean Corpuscular Hemoglobin 30, Mean Corpuscular Hemoglobin Concent 34, Red Cell Distribution Width 13.5, Platelet Count 306, Mean Platelet Volume 8.4L, Immature Granulocyte % (Auto) 1, Neutrophils (%) (Auto) 93H, Lymphocytes (%) (Auto) 1L, Monocytes (%) (Auto) 5, Eosinophils (%) (Auto) 0, Basophils (%) (Auto) 0, Neutrophils # (Auto) 27.1H, Lymphocytes # (Auto) 0.3L, Monocytes # (Auto) 1.4H, Eosinophils # (Auto) 0.0, Basophils # (Auto) 0.1, Immature Granulocyte # (Auto) 0.4H, Neutrophils % (Manual) 84, Lymphocytes % (Manual) 3, Monocytes % (Manual) 3, Band Neutrophils 10, Toxic Granulation 1+, Blood Morphology Comment NORMAL, Sodium Level 130L, Potassium Level 4.2, Chloride Level 96L, Carbon Dioxide Level 21, Anion Gap 13, Blood Urea Nitrogen 13, Creatinine 0.66, Estimat Glomerular Filtration Rate 84, BUN/Creatinine Ratio 20, Glucose Level 157H, Calcium Level 9.2, Corrected Calcium 9.8, Total Bilirubin 1.2H, Aspartate Amino Transf (AST/SGOT) 27, Alanine Aminotransferase (ALT/SGPT) 37, Alkaline Phosphatase 108, Total Protein 6.1L, Albumin 3.3 Microbiology 12/20/20 C. difficile GDH Antigen & Toxins - Final, Complete Assessment/Plan Assessment/Plan Assessment/Plan Frequent falls Weakness Anemia Dark stools/diarrhea Hyponatremia DM Hyperlipidemia HTN Afib GERD h/o Hemorroids Hgb at 13.9 Follow hemoglobin, has remained stable, transfuse as needed Diet as tolerates Too weak for endoscopy at this time Working on placement GRECIA SMITH DO 12/28/202006: Subjective Subjective/Events-last exam Patient sitting in the chair currently. Patient she is resting. She states she is doing okay. Patient states she tolerated lunch. She has no abdominal pain. She is having bowel function. Patient pleasantly demented and wants to go back to sleep. Objective Exam General Appearance: No Apparent Distress, Chronically ill HEENT: PERRL/EOMI Neck: Non Tender, Supple Respiratory: Chest Non Tender, No Accessory Muscle Use, No Respiratory Distress Cardiovascular: Regular Rate, Rhythm, No JVD Gastrointestinal: soft, distended (slight), tenderness (diffuse, minimal) Extremity: Normal Inspection, Non Tender, No Calf Tenderness Neurologic/Psychiatric: Alert; No Oriented x3; No Motor/Sensory Deficits, Normal Mood/Affect, Disoriented Skin: Normal Color, Warm/Dry Lymphatic: No Adenopathy Assessment/Plan Assessment/Plan Assessment/Plan Frequent falls Weakness Anemia Dark stools/diarrhea Hyponatremia DM Hyperlipidemia HTN Afib GERD h/o Hemorroids Hgb at 13.9 Follow hemoglobin, has remained stable, transfuse as needed Diet as tolerates Too weak for endoscopy at this time Working on placement Supervisory-Addendum Brief Verification & Attestation Participated in pt care: history, MDM, physical Personally performed: exam, history, MDM, supervision of care Care discussed with: Medical Student Procedures: n/a Results interpretation: Verified all documentation Verification and Attestation of Medical Student E/M Service A medical student performed and documented this service in my presence. I reviewed and verified all information documented by the medical student and made modifications to such information, when appropriate. I personally performed the physical exam and medical decision making. Grecia Smith, Dec 28, 2020,20:07 PARIS SEPULVEDA Dec 28, 2020 07:41 GRECIA SMITH DO Dec 28, 2020 20:07
[2020-12-28] MEDS: SENNA W/DOCUSATE (SENOKOT S) TABLET PO SCH (09:12)
[2020-12-28] MEDS: SODIUM CHLORIDE 1 GM TABLET PO SCH (09:12)
[2020-12-28] MEDS: PANTOPRAZOLE 40 MG (PROTONIX) TAB PO SCH (09:12)
[2020-12-28] MEDS: DOCUSATE SODIUM 100 MG (COLACE) CAP PO SCH (09:12)
[2020-12-28] MEDS: AMIODARONE 200 MG (CORDARONE) TAB PO SCH (09:12)
--- NOTE | 2020-12-28 10:04 | Physical Therapy Daily Note ---
PT Daily Note-Current Subjective Patient more confused on this date. Reluctantly agrees to PT. Mental Status Patient Orientation: Confused Transfers SCALE: Activities may be completed with or without assistive devices. 6-Avegwizemu-nrwmxbl completes the activity by him/herself with no assistance from a helper. 5-Set-up or Clean-up Assistance-helper sets up or cleans up; patient completes activity. Annabella assists only prior to or following the activity. 4-Supervision or Touching Assistance-helper provides verbal cues and/or gordo ani/steadying and/or contact guard assistance as patient completes activity. Assistance may be provided throughout the activity or intermittently. 3-Partial/Moderate Assistance-helper does LESS THAN HALF the effort. Annabella lifts, holds or supports trunk or limbs, but provides less than half the effort. 2-Substantial/Maximal Assistance-helper does MORE THAN HALF the effort. Annabella lifts or holds trunk or limbs and provides more than half the effort. 3-Tywwethqg-bkqyct does ALL the effort. Patient does none of the effort to complete the activity. Or, the assistance of 2 or more helpers is required for the patient to complete the activity. If activity was not attempted, code reason: 7-Patient Refused. 9-Not Applicable-not attempted and the patient did not perform the activity before the current illness, exacerbation or injury. 10-Not Attempted due to Environmental Limitations-(lack of equipment, weather restraints, etc.). 88-Not Attempted due to Medical Conditions or Safety Concerns. Lying to Sitting/Side of Bed(Q: 2 Sit to Stand (QC): 2 Chair/Ocj-lx-Ygalw Xfer(QC): 2 Toilet Transfer (QC): 2 Patient impulsive to sit unsafely to toilet and chair Weight Bearing Right Lower Extremity: Right Full Weight Bearing Left Lower Extremity: Left Full Weight Bearing Gait Training Distance: 25' x 2 Walk 10 feet (QC): 2 Gait Assistive Device: FWW extended UE's and shuffle gait sequence with continuous VC's for body placement in FWW and gait sequence Exercises Seated Therapy Exercises: Ankle pumps, Long arc quads Seated Reps: 12 (AAROM) Treatments Patient incontinent BM requiring dependent assist to cleanse and change depends. Patient unaware of incontinence. Assessment Patient up in recliner with breakfast in situ. Patient tolerates minimal activity and fatigues very quickly. Noted bilateral LE and UE edema. RN aware. PT Retail Solar Advisor Goals Mcfp Goals PT Mcfp Goals Time Frame: Jan 01, 2021 Roll Left & Right (QC): 6 Sit to Lying (QC): 6 Lying-Sitting on Side/Bed(QC): 6 Sit to Stand (QC): 5 Chair/Dgh-yh-Kzbyb Xfer(QC): 5 Toilet Transfer (QC): 5 Walk 10 feet (QC): 5 Walk 50ft with 2 Turns (QC): 5 Walk 150 ft (QC): 5 PT Plan Treatment/Plan Treatment Plan: Continue Plan of Care Treatment Plan: Bed Mobility, Education, Functional Activity Regan, Functional Strength, Gait, Safety, Therapeutic Exercise, Transfers Treatment Duration: Jan 01, 2021 Frequency: 6 times per week Estimated Hrs Per Day: .25 hour per day Time/GCodes Time In: 754 Time Out: 817 Total Billed Treatment Time: 23 Total Billed Treatment 1 visit GT 11 min FA 12 min EDWIN AHUMADA PT Dec 28, 2020 10:04
--- NOTE | 2020-12-28 11:30 | Discharge Summary ---
Discharge Summary Reconcile Patient Problems Problems Reviewed?: Yes Hospital Course Hospital Course Date of Admission: Dec 16, 2020 at 20:00 Admission Diagnosis : Family Physician/Provider: Malena David Aprn Date of Discharge: 12/28/20 Discharge Diagnosis: GI bleed Frequent Falls Severe Debility Hyponatremia IDDM HLD HTN Atrial Fibrillation GERD Advanced Age Hospital Course: See problem list. Labs and Pending Lab Test: Laboratory Tests 12/27/20 20:11: Glucometer 164H 12/28/20 06:35: White Blood Count 29.3H, Red Blood Count 4.59, Hemoglobin 13.9#, Hematocrit 41, Mean Corpuscular Volume 89, Mean Corpuscular Hemoglobin 30, Mean Corpuscular Hemoglobin Concent 34, Red Cell Distribution Width 13.5, Platelet Count 306, Mean Platelet Volume 8.4L, Immature Granulocyte % (Auto) 1, Neutrophils (%) (Aut o) 93H, Lymphocytes (%) (Auto) 1L, Monocytes (%) (Auto) 5, Eosinophils (%) (Auto) 0, Basophils (%) (Auto) 0, Neutrophils # (Auto) 27.1H, Lymphocytes # (Auto) 0.3L, Monocytes # (Auto) 1.4H, Eosinophils # (Auto) 0.0, Basophils # (Auto) 0.1, Immature Granulocyte # (Auto) 0.4H, Neutrophils % (Manual) 84, Lymphocytes % (Manual) 3, Monocytes % (Manual) 3, Band Neutrophils 10, Toxic Granulation 1+, Blood Morphology Comment NORMAL, Sodium Level 130L, Potassium Level 4.2, Chloride Level 96L, Carbon Dioxide Level 21, Anion Gap 13, Blood Urea Nitrogen 13, Creatinine 0.66, Estimat Glomerular Filtration Rate 84, BUN/ Creatinine Ratio 20, Glucose Level 157H, Calcium Level 9.2, Corrected Calcium 9.8, Total Bilirubin 1.2H, Aspartate Amino Transf (AST/SGOT) 27, Alanine Aminotransferase (ALT/SGPT) 37, Alkaline Phosphatase 108, Total Protein 6.1L, Albumin 3.3 12/28/20 07:37: Glucometer 175H Microbiology 12/20/20 C. difficile GDH Antigen & Toxins - Final, Complete Home Meds Active Reported Alprazolam 0.5 Mg Tablet 0.5 Mg PO HS PRN Tylenol Arthritis (Acetaminophen) 650 Mg Tablet.er 650-1,300 Mg PO Q8H PRN Docusate Sodium 100 Mg Capsule 100 Mg PO DAILY Melatonin 10 Mg Tablet 10 Mg PO HS PRN Vitamin D3 (Cholecalciferol (Vitamin D3)) 50 Mcg Capsule 50 Mcg PO DAILY Calcium + Vitamin D Tablet (Calcium Carbonate/Vitamin D3) 1 Each Tablet 1 Each PO DAILY Xyzal (Levocetirizine Dihydrochloride) 5 Mg Tablet 5 Mg PO HS Vision Formula Tablet (Vit A/C/E/Zinc/Selenium/Copper) 1 Each Tablet 1 Each PO DAILY Xarelto (Rivaroxaban) 15 Mg Tablet 15 Mg PO 1800 TAKES AFTER DINNER LAST FILLED 07-19-2020 #90/90 DAY SUPPLY Insulin Lispro Kwikpen U-100 (Insulin Lispro) 100 Unit/1 Ml Insuln.pen 5 Units SC AC Amiodarone HCl 200 Mg Tablet 200 Mg PO BID Ropinirole HCl 0.5 Mg Tablet 0.5 Mg PO TID Pantoprazole Sodium 40 Mg Tablet.dr 40 Mg PO DAILY Diltiazem 24Hr ER (Diltiazem HCl) 240 Mg Cap.er.24h 240 Mg PO 1800 Metoprolol Succinate 25 Mg Tab.er.24h 25 Mg PO DAILY Hydrochlorothiazide 25 Mg Tablet 25 Mg PO DAILY Basaglar Kwikpen U-100 (Insulin Glargine,Hum.rec.anlog) 100 Unit/1 Ml Insuln.pen 16 Units SC HS Atorvastatin Calcium 40 Mg Tablet 40 Mg PO DAILY Instructions to Patient/Family Assessment/Instructions 1.5 L Fluid Restriction Long Acting insulin was D/c'ed during this admission due to hypoglycemia episodes, recommend Sliding scale for meal time only at this time until appetite improves Skilled NF Admit to: Certification (SNF) I certify that SNF services are required to be given on an inpatient basis because of the above named patient's need for correction care on a continuing basis for the conditions(s) for which he/she was receiving inpatient hospital services prior to his/her transfer to the SNF. Shelter Facility Order: Nursing Services, Assistant Womens Volleyball Coach-Evaluate & Treat, Physical Therapy-Evaluate & Treat Oxygen Delivery Method: Room Air Discharge Diet: ADA Diet (With fluid restriction) Daily Activity as Tolerated: Yes Resuscitation Status: Full Code Renato Lambert Dec 28, 2020 11:25 Discharge Physical Exam General: Alert (Oriented Person and Place), Cooperative, No Acute Distress HEENT: Mucous Memb Moist/[place] Lungs: Clear to Auscultation, Normal Air Movement Heart: Other (Iregularly Iregular rate, no murmurs) Abdomen: Normal Bowel Sounds, Soft, No Tenderness, No Masses Extremities: No Edema, No Tenderness/Swelling Neuro: Normal Speech, Sensation Intact, Cranial Nerves 3-12 NL RENATO LAMBERT MD Dec 28, 2020 11:30
[2020-12-28] MEDS ORDERED: LORA10TA7 PO (11:32)
--- NOTE | 2020-12-28 13:02 | Occupational Ther Daily Note ---
OT Current Status-Daily Note Subjective Pt sleeping in recliner. Pt woke easily to name. Pt states that she still doesn't feel well but better than yesterday. Pleasantly confused. Mental Status/Objective Patient Orientation: Person, Confused Attachments: IV ADL-Treatment Edema in L hand, skin cold and bluish. With movement and massage, skin pinked up and warmth returned. Pt required set up and built up handle to eat lunch. Pt continued to need cues to eat and would fall asleep while scooping food. Pt able to bring food to mouth when awake after scooping. Nrsg aware of pt's position. After session, pt sitting in recliner with call light/phone in reach. All needs met in room. Therapy Code Descriptions/Definitions Functional [place] Measure: 0=Not Assessed/NA 4=Minimal Assistance 1=Total Assistance 5=Supervision or Setup 2=Maximal Assistance 6=Modified [place] 3=Moderate Assistance 7=Complete IndependenceSCALE: Activities may be completed with or without assistive devices. 2-Lbumvvbxxi-urhteeg completes the activity by him/herself with no assistance from a helper. 5-Set-up or Clean-up Assistance-helper sets up or cleans up; patient completes activity. Warren assists only prior to or following the activity. 4-Supervision or Touching Assistance-helper provides verbal cues and/or touc eugenio/steadying and/or contact guard assistance as patient completes activity. Assistance may be provided throughout the activity or intermittently. 3-Partial/Moderate Assistance-helper does LESS THAN HALF the effort. Warren lifts, holds or supports trunk or limbs, but provides less than half the effort. 2-Substantial/Maximal Assistance-helper does MORE THAN HALF the effort. Warren lifts or holds trunk or limbs and provides more than half the effort. 0-Wbdvblcvg-ewpdmg does ALL the effort. Patient does none of the effort to complete the activity. Or, the assistance of 2 or more helpers is required for the patient to complete the activity. If activity was not attempted, code reason: 7-Patient Refused. 9-Not Applicable-not attempted and the patient did not perform the activity before the current illness, exacerbation or injury. 10-Not Attempted due to Environmental Limitations-(lack of equipment, weather restraints, etc.). 88-Not Attempted due to Medical Conditions or Safety Concerns. OT Senior Care Goals Fitter Helper Goals Time Frame: Dec 29, 2020 Eating (QC): 6 Oral Hygiene (QC): 6 Toileting Hygiene (QC): 6 Shower/Bathe Self (QC): 4 Upper Body Dressing (QC): 5 Lower Body Dressing (QC): 4 On/Off Footwear (QC): 4 Additional Goals: 1-Demonstrate ADL Tasks, 2-Verbalize Understanding, 3-Impr oveStrength/Regan 1=Demonstrate adherence to instructed precautions during ADL tasks. 2=Patient will verbalize/demonstrate understanding of assistive devices/modifications for ADL. 3=Patient will improve strength/tolerance for activity to enable patient to perform ADL's. OT Education/Plan Problem List/Assessment Assessment: Decreased Activ Tolerance, Decreased Safety Aware, Decreased UE Strength, Impaired Cognition, Impaired Self-Care Skills Discharge Recommendations Plan/Recommendations: Continue POC Treatment Plan/Plan of Care Patient would benefit from OT for education, treatment and training to promote independence in ADL's, mobility, safety and/or upper extremity function for ADL's. Plan of Care: ADL Retraining, Functional Mobility, UE Funct Exercise/Act Treatment Duration: Dec 29, 2020 Frequency: 5 times per week Estimated Hrs Per Day: .25 hour per day Rehab Potential: Fair Time/GCodes Start Time: 11:35 Stop Time: 11:55 Total Time Billed (hr/min): 20 Billed Treatment Time 1 visit-ADL 1 (20 min) LUIZ ENCISO Dec 28, 2020 13:02
[2020-12-28 16:24] VITALS: BP 146/65
== END 2020-12-28 15:50 | DRG 378 ==
LOC: EDUNIT# 15:41 → ER FS 15:42 → 4TH 20:00
PROVIDERS: ADMIT Family Medicine; ATTEND Family Medicine
DX: K92.2 Gastrointestinal hemorrhage, unspecified (principal); E87.1 Hypo-osmolality and hyponatremia; I48.20 Chronic atrial fibrillation, unspecified; R53.1 Weakness; Z91.81 History of falling; M25.552 Pain in left hip; S30.0XXA Contusion of lower back and pelvis, initial encounter; I10 Essential (primary) hypertension; K21.9 Gastro-esophageal reflux disease without esophagitis; M19.91 Primary osteoarthritis, unspecified site; E78.5 Hyperlipidemia, unspecified; E11.649 Type 2 diabetes mellitus with hypoglycemia without coma; Z79.4 Long term (current) use of insulin; K59.00 Constipation, unspecified; R33.9 Retention of urine, unspecified; R60.0 Localized edema; F03.90 Unspecified dementia, unspecified severity, without behavioral disturbance, psychotic disturbance, mood disturbance, and anxiety; H35.30 Unspecified macular degeneration; F41.9 Anxiety disorder, unspecified; F32.9 Major depressive disorder, single episode, unspecified; D64.9 Anemia, unspecified; Z96.642 Presence of left artificial hip joint; Z95.0 Presence of cardiac pacemaker; Z88.0 Allergy status to penicillin; W18.30XA Fall on same level, unspecified, initial encounter; Y92.013 Bedroom of single-family (private) house as the place of occurrence of the external cause; Y93.E9 Activity, other interior property and clothing maintenance
CPT/HCPCS: 36415; 51702; 73502; 74019; 80048; 80053; 80076; 81000; 82274; 82607; 82947; 83605; 83880; 85007; 85025; 85027; 86850; 86900; 86901; 86920; 87324; 87449